=== PATIENT | female | born 1975 | race Two or more races ===

== ENCOUNTER 2018-07-26 16:56 | Inpatient (IN) | payer MEDICAID ==
[~2018-07-26] VITALS: Ht 152.4 cm; Wt 58.1 kg
[2018-07-26] MEDS ORDERED: METF850T13 PO (23:08)
[2018-07-26] MEDS ORDERED: FENO200 PO (23:14)
[2018-07-26] MEDS ORDERED: OMEP20CA16 PO (23:14)
[2018-07-26] MEDS ORDERED: ATEN50TA PO (23:14)
[2018-07-26] MEDS ORDERED: [UNRECOGNIZED DRUG - OTHER] (23:14)
[2018-07-26] MEDS ORDERED: GLICLAZIDE PO (23:16)
[2018-07-26] MEDS ORDERED: MULT-853 PO (23:16)
[2018-07-27] VITALS (23 sets, daily range): BP systolic 109–162; BP diastolic 56–90; PULSE 53–90; RESP 9–21; Ht 152.4 cm; Wt 58.1 kg
[2018-07-27] MEDS ORDERED: ACETAMINOPHEN 650MG/20.3ML CUP PO PRN
--- NOTE | 2018-07-27 00:26 | ERD ---
ER Documentation Chief Complaint Chief Complaint new R facial droop: LWKT 3days ago. hx stroke x4 w residual weak, blindness HPI Is a 43-year-old female had a new right-sided facial for the past 3 days. Patient had a stroke 4 weeks ago. Family is very poor with history and cannot tell me which hospital they had gone to for this stroke or what kind of treatment was offered to them. Apparently this droop started 3 days ago but t hey were waiting for possible Medi-[employer] approval from the sounds of it. ROS All systems reviewed and are negative except as per history of present illness. Medications Home Meds Reported Medications Multivits-Min/Iron/FA/Lutein (Centrum Silver Women Tablet) 1 Each Tablet, 1 EACH PO DAILY, TAB 07/26/18 [Gliclazide ] No Conflict Check, 40 MG PO BID 07/26/18 Fenofibrate* (Fenofibrate*) 200 Mg Cap, 200 MG PO DAILY, CAP 07/26/18 [Clinidipine ] No Conflict Check, 10 MG DAILY 07/26/18 Omeprazole* (Omeprazole*) 20 Mg Capsule.dr, 20 MG PO DAILY, #30 CAP 07/26/18 Atenolol* (Atenolol*) 50 Mg Tablet, 50 MG PO DAILY, #30 TAB 07/26/18 Metformin Hcl* (Metformin Hcl*) 850 Mg Tablet, 850 MG PO WITH BREAKFAST DINNE, #30 TAB 07/26/18 Allergies Allergies: Coded Allergies: No Known Allergy (Unverified , 07/26/18) PMhx/Soc History of Surgery: Yes (2 ) Anesthesia Reaction: No Hx Neurological Disorder: Yes (CVA 4 times as per daughters verbatim) Hx Respiratory Disorders: No Hx Cardiac Disorders: Yes (HTN, Hyperlipidemia) Hx Psychiatric Problems: No Hx Miscellaneous Medical Probl: Yes (DM) Hx Alcohol Use: No Hx Substance Use: No Hx Tobacco Use: No Smoking Status: Never smoker Physical Exam Vitals Vital Signs Date Temp Pulse Resp B/P (MAP) Pulse Ox O2 O2 Flow FiO2 Time Delivery Rate 07/26/18 98.1 78 16 139/70 100 Room Air 23:53 (93) 07/26/18 99.2 104 22 132/95 100 17:17 (107) Physical Exam Const: No acute distress Head: Atraumatic Eyes: Normal Conjunctiva ENT: Normal External Ears, Nose and Mouth. Neck: Full range of motion. No meningismus. Resp: Clear to auscultation bilaterally Cardio: Regular rate and rhythm, no murmurs Abd: Soft, non tender, non distended. Normal bowel sounds Skin: No petechiae or rashes Back: No midline or flank tenderness Ext: No cyanosis, or edema Neur: Awake and alert Psych: Normal Mood and Affect Result Diagram: 07/26/18215007/26/182150 Results 24 hrs Laboratory Tests Test 07/26/18 19:30 07/26/18 21:51 07/26/18 22:20 07/26/18 22:26 Hemoglobin A1c 6.3 % White Blood 11.7 10^3/ul Count Red Blood Count 4.37 10^6/ul Hemoglobin 11.8 g/dl Hematocrit 36.9 % Mean 84.4 fl Corpuscular Volume Mean 27.0 pg Corpuscular Hemoglobin Mean 32.0 g/dl Corpuscular Hemoglobin Conc ent Red Cell 13.0 % Distribution Width Platelet Count 242 10^3/UL Mean Platelet 11.9 fl Volume Immature 0.400 % Granulocytes % Neutrophils % 42.7 % Lymphocytes % 48.6 % Monocytes % 6.7 % Eosinophils % 1.3 % Basophils % 0.3 % Nucleated Red 0.0 /100WBC Blood Cells % Immature 0.050 10^3/ul Granulocytes # Neutrophils # 5.0 10^3/ul Lymphocytes # 5.7 10^3/ul Monocytes # 0.8 10^3/ul Eosinophils # 0.2 10^3/ul Basophils # 0.0 10^3/ul Nucleated Red 0.0 10^3/ul Blood Cells # Prothrombin 12.4 Sec Time Prothrombin 1.0 Time Ratio INR 0.92 International Normalized Rati o Activated 26.4 Sec Partial Thrombo plast Time Sodium Level 139 mmol/L Potassium Level 4.0 mmol/L Chloride Level 99 mmol/L Carbon Dioxide 27 mmol/L Level Anion Gap 13 Blood Urea 18 mg/dl Nitrogen Creatinine 1.04 mg/dl Est Glomerular 57 mL/min Filtrat Rate mL/min Glucose Level 81 mg/dl Calcium Level 9.5 mg/dl Total Bilirubin 0.2 mg/dl Direct 0.00 mg/dl Bilirubin Indirect 0.2 mg/dl Bilirubin Aspartate Amino 27 IU/L Transf (AST/SGO T) Alanine 24 IU/L Aminotransferas e (ALT/SGPT) Alkaline 62 IU/L Phosphatase Troponin I < 0.012 ng/ml Total Protein 7.2 g/dl Albumin 4.2 g/dl Globulin 3.00 g/dl Albumin/Globuli 1.40 n Ratio Triglycerides 145 mg/dl Level Cholesterol 127 mg/dl Level LDL 55 mg/dl Cholesterol, Calculated HDL Cholesterol 43 mg/dl Cholesterol/HDL 2.9 RATIO Ratio Urine Color YELLOW Urine Clarity CLEAR Urine pH 6.0 Urine Specific 1.010 [place] Urine Ketones NEGATIVE mg/dL Urine Nitrite NEGATIVE mg/dL Urine Bilirubin NEGATIVE mg/dL Urine NEGATIVE mg/dL Urobilinogen Urine Leukocyte 3+ Adrienne/ul Esterase Urine 1 /HPF Microscopic RBC Urine 55 /HPF Microscopic WBC Urine Bacteria FEW /HPF Urine NEGATIVE mg/dL Hemoglobin Urine Glucose NEGATIVE mg/dL Urine Total NEGATIVE mg/dl Protein Urine Opiates Negative Screen Urine Negative Barbiturates Urine Negative Amphetamines Screen Urine Negative Benzodiazepines Screen Urine Cocaine Negative Screen Urine Negative Cannabinoids Bedside Glucose 72 mg/dL Current Medications Medications Dose Sig/Solis Start Time Status Last (Trade) Ordered Route PRN Stop Time Admin Dose Reason Admin 650 mg Q6H PRN 07/27/18 Acetaminophen PO PAIN 00:00 (Tylenol LEVEL 1-3 OR Liquid) FEVER 40 mg DAILY@06 07/27/18 Pantoprazole IV 06:00 (Protonix Iv) Hydralazine 10 mg Q4H PRN 07/27/18 HCl IV ELEVATED 00:00 (Apresoline) BLOOD PRESSURE Ceftriaxone 50 ml @ Q24H IVPB 07/27/18 Sodium 100 mls/hr 00:00 1,000 ml @ [id number] IV 07/27/18 Dextrose/Sodi 75 mls/hr 00:00 um Chloride Procedures/MDM EKG: Rate/Rhythm: [Normal Sinus Rhythm] QRS, ST, T-waves: [No changes consistent w/ acute ischemia] Impression: [No evidence of ischemia or arrhythmia] Chest X-ray 1V Interpreted by me: Soft Tissue: No acute abnormalities Bones: No acute abnormalities Mediastinum/Cardiac Silhouette/Lungs: [No acute abnormalities] Medical decision makin-year-old female who has possible evolution of previous stroke versus new subacute stroke. CT seems to bear this out. I spoke to Dr. Christian of neurosurgery given the midline shift on the CT NEC feels that there is no neurosurgical intervention which I agree with at this time. Patient is nonfocal neurologically. Will be admitted to hospitalist for further evaluation and management neurology consultation. Telemetry neurology was consulted as well, given the past 3 days plus of the new symptoms, no acute intervention was indicated Critical Care: Time: 45 minutes, independent of any separately billable procedural time Treatments/Evaluations: Close monitoring and treatment of unstable vital signs, cardiorespiratory, and neurologic status, while maintaining tight balance of fluid, respiratory, and cardiac interventions. Departure Diagnosis: Primary Impression: CVA (cerebral vascular accident) CVA mechanism: unspecified Qualified Codes: I63.9 - Cerebral infarction, unspecified Condition: Serious CINDY LEHMAN Jul 27, 2018 00:26
[2018-07-27] MEDS: CEFTRIAXONE 1 GM/50 ML (PMX) 50 ML IVPB SCH ×2 (00:31→23:07)
[2018-07-27] MEDS: DEXTROSE 5%-0.45% NACL 1,000 ML IV SCH ×2 (01:03→12:39)
--- NOTE | 2018-07-27 01:14 | HP ---
Date/Time of Note Date/Time of Note DATE: 07/27/18 TIME: 01:13 Assessment/Plan VTE Prophylaxis SCD applied (from Nsg): Yes Pharmacological prophylaxis: NA/contraindicated Pharm contraindication: low risk/ambulating Lines/Catheters IV Catheter Type (from Nrsg): Saline Lock Assessment/Plan Hospital Course This is a 43-year-old female being admitted to the ICU floor for: #1 acute versus subacute nonhemorrhagic CVA: CT of the brain shows what appears to be evolving stroke with a 3 mm midline shift. There also appears to be signs of old infarcts as well. Patient does have a left-sided facial droop. There is no signs of herniation. As the symptoms have occurred greater than 48 hours ago at the current time there is no indication for permissive hypertension. Neurology and neurosurgery were consulted and there was no indication for any emergent neurosurgical or thrombolytic intervention at the current time. Patient will be monitored closely in the ICU as per the recommendations of neurosurgery. Will obtain an MRI with and without contrast of the brain in the a.m., and MRA of the head and MRI of the neck with contrast. Carotid Doppler ultrasound. Echocardiogram with bubble study. PT OT speech evaluation. Neurovascular checks every 4 hours. Fall precautions. Aspirin 81 mg daily. High-dose statin daily. Will consult neurology , Dr. Ahuja of neurosurgery is already on the case. Glucose checks every 4 hours given her diabetes. We will need to optimize glucose, blood pressure control. #2 history of multiple CVAs: CT scan does show signs of old infarcts. We will need to optimize blood sugar control, blood pressure control and lipids. Further management as per #1. #3 diabetes mellitus: We will check hemoglobin A1c, insulin sliding scale #4 urinary tract infection: Ceftriaxone 1 g every 24 hours, await urine culture results #5 hyperlipidemia: We will start high-dose statin, LFTs are within normal values. #6 DVT GI prophylaxis: SCDs, Protonix Further treatment strategy will be implemented as per the clinical course Greater than 45 minutes of critical care time was spent on the care management this patient. Result Diagram: 07/26/18215007/26/181 Results 24hrs Laboratory Tests Test 07/26/18 19:30 07/26/18 21:51 07/26/18 22:20 07/26/18 22:26 Hemoglobin A1c 6.3 H White Blood 11.7 H Count Red Blood Count 4.37 Hemoglobin 11.8 L Hematocrit 36.9 L Mean Corpuscular 84.4 Volume Mean Corpuscular 27.0 L Hemoglobin Mean Corpuscular 32.0 Hemoglobin Na nt Red Cell 13.0 Distribution Width Platelet Count 242 Mean Platelet 11.9 H Volume Immature 0.400 Granulocytes % Neutrophils % 42.7 Lymphocytes % 48.6 Monocytes % 6.7 Eosinophils % 1.3 Basophils % 0.3 Nucleated Red 0.0 Blood Cells % Immature 0.050 H Granulocytes # Neutrophils # 5.0 Lymphocytes # 5.7 H Monocytes # 0.8 Eosinophils # 0.2 Basophils # 0.0 Nucleated Red 0.0 Blood Cells # Prothrombin Time 12.4 Prothrombin Time 1.0 Ratio INR 0.92 International Normalized Ratio Activated 26.4 Partial Thrombop last Time Sodium Level 139 Potassium Level 4.0 Chloride Level 99 Carbon Dioxide 27 Level Anion Gap 13 Blood Urea 18 Nitrogen Creatinine 1.04 H Est Glomerular 57 L Filtrat Rate mL/min Glucose Level 81 Calcium Level 9.5 Total Bilirubin 0.2 Direct Bilirubin 0.00 Indirect 0.2 Bilirubin Aspartate Amino 27 Transf (AST/SGOT ) Alanine 24 Aminotransferase (ALT/SGPT) Alkaline 62 Phosphatase Troponin I < 0.012 Total Protein 7.2 Albumin 4.2 Globulin 3.00 Albumin/Globulin 1.40 Ratio Triglycerides 145 Level Cholesterol 127 Level LDL Cholesterol, 55 Calculated HDL Cholesterol 43 Cholesterol/HDL 2.9 Ratio Urine Color YELLOW Urine Clarity CLEAR Urine pH 6.0 Urine Specific 1.010 [place] Urine Ketones NEGATIVE Urine Nitrite NEGATIVE Urine Bilirubin NEGATIVE Urine NEGATIVE Urobilinogen Urine Leukocyte 3+ H Esterase Urine 1 Microscopic RBC Urine 55 H Microscopic WBC Urine Bacteria FEW A Urine Hemoglobin NEGATIVE Urine Glucose NEGATIVE Urine Total NEGATIVE Protein Urine Opiates Negative Screen Urine Negative Barbiturates Urine Negative Amphetamines Screen Urine Negative Benzodiazepines Screen Urine Cocaine Negative Screen Urine Negative Cannabinoids Bedside Glucose 72 HPI/ROS Admit Date/Time Admit Date/Time Hx of Present Illness Chief complaint: left sided facial droop, weakness times 3 days This is a 43-year-old female with a past medical history of CVA and diabetes who comes in today with symptoms of left facial droop and weakness. She is accompanied by her daughter. Most of the history was obtained from the daughter as the patient was not able to provide a complete history given her clinical condition. According to the daughter the patient was noted to to have decreased activity over the last 3 days and was mostly just sitting around at home. The daughter also noted that she had a right-sided facial droop. When the patient was asked further when her symptoms started she did report that one week ago she started experiencing a headache. Patient has a history of 4 strokes in the past with some of them resulting in limb weakness which eventually recovered after rehab. At the current time the mother is able to perform her daily activities such as cooking. She is able to walk on her own. The daughter does state that she has some issues with her vision mainly color colorblindness which the daughter thinks that could be secondary to her previous strokes but she is unsure of this. The family and patient recently emigrated to [place] within the last few months. Allergies: NKDA Medications: See NINA HAYNES Const: As per HPI Eyes : No pain discharge or redness or change in visual acuity ENT: No pain, sore throat, congestion, congestion, dysphagia or discharge Respiratory: No shortness of breath, cough, sputum, wheezing, or pleuritic pain Cardiovascular: No chest pain, palpitation, PND, or edema GI : no change in appetite, abdominal pain, nausea, vomiting, diarrhea, constipation, or change in the color his stool Genitourinary: No dysuria, hematuria, flank pain , discharge or CVA tenderness Musculoskeletal: No joint pain, back pain, neck pain, restricted range of motion in neck or joints Skin: No rash, bruising or hives Neuro: As per HPI Endocrine: No polyuria, polydipsia, temperature intolerance Psych: No hallucination, depression, anxiety or suicidal ideation PMH/Family/Social Past Medical History Diabetes mellitus, CVA x4, hypertension, hyperlipidemia Medications Current Medications Acetaminophen (Tylenol Liquid) 650 mg Q6H PRN PO PAIN LEVEL 1-3 OR FEVER; Start 07/27/18 at 00:00 Pantoprazole (Protonix Iv) 40 mg DAILY@06 IV ; Start 07/27/18 at 06:00 Hydralazine HCl (Apresoline) 10 mg Q4H PRN IV ELEVATED BLOOD PRESSURE; Start 07/27/18 at 00:00 Ceftriaxone Sodium 50 ml @ 100 mls/hr Q24H IVPB Last administered on 07/27/18at 00:31; Admin Dose 100 MLS/HR; Start 07/27/18 at 00:00 Dextrose/Sodium Chloride 1,000 ml @ 75 mls/hr [id number] IV Last administered on 07/27/18at 01:03; Admin Dose 75 MLS/HR; Start 07/27/18 at 00:00 Coded Allergies: No Known Allergy (Unverified , 07/26/18) Past Surgical History x2 Family History Significant Family History: no pertinent family hx Social History Alcohol Use: none Smoking Status: Never smoker Drug Use: none Exam/Review of Systems Vital Signs Vitals Vital Signs Date Temp Pulse Resp B/P (MAP) Pulse Ox O2 O2 Flow FiO2 Time Delivery Rate 07/27/18 62 17 136/76 100 Room Air 00:41 (96) 07/26/18 98.1 23:53 Exam Exam General: Patient is currently lying in bed, she is somnolent but easily arousable and follows commands and converses.She reports seeing shadows, but is otherwise blind secondary to previous strokes HEENT: left-sided facial droop Neck: Supple with full range of motion. No rigidity or meningismus Chest: Nontender Lungs: Clear to auscultation bilaterally no crackles rales or wheezing Heart: Normal S1-S2, Regular rhythm and rate. Abdomen: Soft , nontender, nondistended , bowel sounds are present. No guarding no rebound tenderness , No masses or organomegaly. No costovertebral temporal angle mass Extremities: Normal to inspection, no edema no cyanosis Neurologic: Alert and oriented x3, speech normal, left-sided facial droop, strength 5 out of 5 in bilateral upper and lower extremities. Gait not assessed however daughter does state that she is walking at home without any issue. Additional Comments EKG: Normal sinus rhythm at approximately PROCEDURE: CT Brain without contrast. CLINICAL INDICATION: Stroke TECHNIQUE: A CT of the brain was performed on a multidetector CT scanner ut ilizing axial imaging from the skull base through the vertex without IV contrast. Multiplanar reformatted images were made. Images were reviewed on a PACS workstation. The CTDIvol is 40 mGy and the DLP is 634 mGycm. DICOM images are available. One or more of the following dose reduction techniques were utilized: 1.) Automated exposure control 2.) Adjustment of the mA +/- kV according to patient's size 3.) Use of iterative reconstruction technique. COMPARISON: None FINDINGS: Noted is mild to moderate diffuse cerebral volume loss with sulcal and ventricular dilatation. No discrete extra-axial fluid collection or masses seen. Ventricles are in the midline. There is mass effect and deformity of the frontal horn of the right lateral ventricle secondary to mass effect from edema or iginating from an acute to subacute non-hemorrhagic infarct in the distribution of the right anterior cerebral artery. There is effacement of the overlying sulci with approximate 3 mm right to left midline shift at the level of the third ventricle. There is no evidence of herniation. Noted are chronic infarcts of the right and left occipital lobe and posterior right parietal lobe with encephalomalacia. There is a chronic infarct extending from the left basal ganglia into the frontal lobato radiata. Small chronic ischemic changes are seen in the right basal ganglia. There is periventricular white matter disease in both cerebral hemispheres. No intracranial hemorrhage is visualized. There is normal aeration of the visualized paranasal sinuses per IMPRESSION: Acute to subacute non-hemorrhagic infarct distribution right anterior cerebral artery with mass effect and deformity frontal horn right lateral ventricle and 3 mm right to left midline shift. No evidence of herniation. Chronic infarcts right and left occipital lobe and posterior right parietal lobe with encephalomalacia. Chronic ischemic changes left basal ganglia and left frontal periventricular white matter. Bilateral white matter disease compatible with chronic small vessel ischemia. No intracranial hemorrhage. .Dm Parrish MD, Date Time Electronically viewed and signed by .Dm Parrish MD, MD on 07/26/2018 22:12 .A/ CC: CINDY LEHMAN [phone] PROCEDURE: Portable chest x-ray. CLINICAL INDICATION: 43 years of age, female. Possible stroke TECHNIQUE: Portable AP view of the chest. COMPARISON: None available. FINDINGS: Medical devices: None. Mediastinum: Cardiomediastinal contours are normal. Lungs: Lungs are clear. Pleura: Negative for pleural effusion or pneumothorax. Bones: No acute bony abnormality. Additional comment: None. IMPRESSION: Negative for evidence of an acute chest process. RPTAT: HCTS Bria Aguilar, Physician Date Time Electronically viewed and signed by Bria Aguilar, Physician on 07/26/2018 22:05 CS/ CC: CINDY LEHMAN [id number] ARIANNA DIALLO Jul 27, 2018 01:14
[2018-07-27] MEDS: hydrALAzine 20 MG INJ IV PRN ×2 (01:29→15:35)
[2018-07-27] MEDS ORDERED: ACCU-CHEK XX SCH (02:00)
[2018-07-27] MEDS ORDERED: GLUCOSE GEL 15 GRAM TUBE PO PRN ×2 (02:00)
[2018-07-27] MEDS ORDERED: GLUCOSE GEL 15 GRAM TUBE BUCCAL PRN (02:00)
[2018-07-27] MEDS ORDERED: DEXTROSE 50% 50 ML SYRINGE IV PRN ×2 (02:00)
[2018-07-27] MEDS ORDERED: GLUCAGON 1 MG INJ IM PRN (02:00)
--- NOTE | 2018-07-27 02:56 | CONS ---
Assessment/Plan Assessment/Plan Assessment/Plan 43 F LKW 3 days ago with facial droop. NCHCT showing suacute infarct in right LUIS territory with mass effect and 3 mm right to left midline shift and no evidence of herniation. NS consulted by local ED for edema/midline shift and requested emergent Neuro consultation to determine if any acute intervention for this stroke. LKW is 3 days ago as reported and the edema from this stroke is likely nearing peak. There is no medical (tPA) or surgical (thrombectomy) acute intervention for this acute stroke indicated. Further care per local Neurology team. Result Diagram: 07/26/18215007/26/182150 Results 24hrs Laboratory Tests Test 07/26/18 19:30 07/26/18 21:51 07/26/18 22:20 07/26/18 22:26 Hemoglobin A1c 6.3 H White Blood 11.7 H Count Red Blood Count 4.37 Hemoglobin 11.8 L Hematocrit 36.9 L Mean Corpuscular 84.4 Volume Mean Corpuscular 27.0 L Hemoglobin Mean Corpuscular 32.0 Hemoglobin Na nt Red Cell 13.0 Distribution Width Platelet Count 242 Mean Platelet 11.9 H Volume Immature 0.400 Granulocytes % Neutrophils % 42.7 Lymphocytes % 48.6 Monocytes % 6.7 Eosinophils % 1.3 Basophils % 0.3 Nucleated Red 0.0 Blood Cells % Immature 0.050 H Granulocytes # Neutrophils # 5.0 Lymphocytes # 5.7 H Monocytes # 0.8 Eosinophils # 0.2 Basophils # 0.0 Nucleated Red 0.0 Blood Cells # Prothrombin Time 12.4 Prothrombin Time 1.0 Ratio INR 0.92 International Normalized Ratio Activated 26.4 Partial Thrombop last Time Sodium Level 139 Potassium Level 4.0 Chloride Level 99 Carbon Dioxide 27 Level Anion Gap 13 Blood Urea 18 Nitrogen Creatinine 1.04 H Est Glomerular 57 L Filtrat Rate mL/min Glucose Level 81 Calcium Level 9.5 Total Bilirubin 0.2 Direct Bilirubin 0.00 Indirect 0.2 Bilirubin Aspartate Amino 27 Transf (AST/SGOT ) Alanine 24 Aminotransferase (ALT/SGPT) Alkaline 62 Phosphatase Troponin I < 0.012 Total Protein 7.2 Albumin 4.2 Globulin 3.00 Albumin/Globulin 1.40 Ratio Triglycerides 145 Level Cholesterol 127 Level LDL Cholesterol, 55 Calculated HDL Cholesterol 43 Cholesterol/HDL 2.9 Ratio Urine Color YELLOW Urine Clarity CLEAR Urine pH 6.0 Urine Specific 1.010 [place] Urine Ketones NEGATIVE Urine Nitrite NEGATIVE Urine Bilirubin NEGATIVE Urine NEGATIVE Urobilinogen Urine Leukocyte 3+ H Esterase Urine 1 Microscopic RBC Urine 55 H Microscopic WBC Urine Bacteria FEW A Urine Hemoglobin NEGATIVE Urine Glucose NEGATIVE Urine Total NEGATIVE Protein Urine Opiates Negative Screen Urine Negative Barbiturates Urine Negative Amphetamines Screen Urine Negative Benzodiazepines Screen Urine Cocaine Negative Screen Urine Negative Cannabinoids Bedside Glucose 72 Test 07/27/18 01:34 Bedside Glucose 78 Consultation Date/Type/Reason Admit Date/Time Type of Consult Neurology Date/Time of Note DATE: 07/27/18 TIME: 02:55 Exam/Review of Systems Vital Signs Vitals Vital Signs Date Temp Pulse Resp B/P (MAP) Pulse Ox O2 O2 Flow FiO2 Time Delivery Rate 07/27/18 67 13 109/56 100 Room Air 02:00 (73) 07/27/18 98.4 01:45 Intake and Output 07/26/18 07/26/18 07/27/18 1515:00 23:00 07:00 IntakeIntake Total 0 ml OutputOutput Total 0 ml BalanceBalance 0 ml Medications Medications Current Medications Acetaminophen (Tylenol Liquid) 650 mg Q6H PRN PO PAIN LEVEL 1-3 OR FEVER; Start 07/27/18 at 00:00 Pantoprazole (Protonix Iv) 40 mg DAILY@06 IV ; Start 07/27/18 at 06:00 Hydralazine HCl (Apresoline) 10 mg Q4H PRN IV ELEVATED BLOOD PRESSURE Last administered on 07/27/18at 01:29; Admin Dose 10 MG; Start 07/27/18 at 00:00 Ceftriaxone Sodium 50 ml @ 100 mls/hr Q24H IVPB Last administered on 07/27/18at 00:31; Admin Dose 100 MLS/HR; Start 07/27/18 at 00:00 Dextrose/Sodium Chloride 1,000 ml @ 75 mls/hr [id number] IV Last administered on 07/27/18at 01:03; Admin Dose 75 MLS/HR; Start 07/27/18 at 00:00 Insulin Aspart (Novolog Insulin Pen) NOVOLOG *MILD* ALGORI... Q4 SC ; Start 07/27/18 at 05:00 Miscellaneous Information 1 ea NOTE XX ; Start 07/27/18 at 02:00 Glucose (Glutose) 15 gm Q15M PRN PO DECREASED GLUCOSE; Start 07/27/18 at 02:00 Glucose (Glutose) 22.5 gm Q15M PRN PO DECREASED GLUCOSE; Start 07/27/18 at 02:00 Dextrose (D50w Syringe) 25 ml Q15M PRN IV DECREASED GLUCOSE; Start 07/27/18 at 02:00 Dextrose (D50w Syringe) 50 ml Q15M PRN IV DECREASED GLUCOSE; Start 07/27/18 at 02:00 Glucagon (Glucagen) 1 mg Q15M PRN IM DECREASED GLUCOSE; Start 07/27/18 at 02:00 Glucose (Glutose) 15 gm Q15M PRN BUCCAL DECREASED GLUCOSE; Start 07/27/18 at 02:00 Past Medical History Medications Current Medications Acetaminophen (Tylenol Liquid) 650 mg Q6H PRN PO PAIN LEVEL 1-3 OR FEVER; Start 07/27/18 at 00:00 Pantoprazole (Protonix Iv) 40 mg DAILY@06 IV ; Start 07/27/18 at 06:00 Hydralazine HCl (Apresoline) 10 mg Q4H PRN IV ELEVATED BLOOD PRESSURE Last administered on 07/27/18at 01:29; Admin Dose 10 MG; Start 07/27/18 at 00:00 Ceftriaxone Sodium 50 ml @ 100 mls/hr Q24H IVPB Last administered on 07/27/18at 00:31; Admin Dose 100 MLS/HR; Start 07/27/18 at 00:00 Dextrose/Sodium Chloride 1,000 ml @ 75 mls/hr [id number] IV Last administered on 07/27/18at 01:03; Admin Dose 75 MLS/HR; Start 07/27/18 at 00:00 Insulin Aspart (Novolog Insulin Pen) NOVOLOG *MILD* ALGORI... Q4 SC ; Start 07/27/18 at 05:00 Miscellaneous Information 1 ea NOTE XX ; Start 07/27/18 at 02:00 Glucose (Glutose) 15 gm Q15M PRN PO DECREASED GLUCOSE; Start 07/27/18 at 02:00 Glucose (Glutose) 22.5 gm Q15M PRN PO DECREASED GLUCOSE; Start 07/27/18 at 02:00 Dextrose (D50w Syringe) 25 ml Q15M PRN IV DECREASED GLUCOSE; Start 07/27/18 at 02:00 Dextrose (D50w Syringe) 50 ml Q15M PRN IV DECREASED GLUCOSE; Start 07/27/18 at 02:00 Glucagon (Glucagen) 1 mg Q15M PRN IM DECREASED GLUCOSE; Start 07/27/18 at 02:00 Glucose (Glutose) 15 gm Q15M PRN BUCCAL DECREASED GLUCOSE; Start 07/27/18 at 02:00 Allergies: Coded Allergies: No Known Allergy (Unverified , 07/26/18) Social History Smoking Status: Never smoker HENRY REDMAN MD Jul 27, 2018 02:56
[2018-07-27] MEDS: INSULIN ASPART [NOVOLOG] 3 ML PEN SC SCH ×7 (05:00→20:41)
[2018-07-27] MEDS: ATORVASTATIN 80 MG TAB PO SCH ×2 (05:44→20:39)
[2018-07-27] MEDS: PANTOPRAZOLE 40 MG INJ IV SCH (05:44)
[2018-07-27] MEDS: ASPIRIN 81 MG TAB PO SCH ×2 (05:44→08:31)
[2018-07-27] MEDS ORDERED: MAGNESIUM SULFATE 2 GM/50 ML 50 ML IVPB ONE (07:30)
--- NOTE | 2018-07-27 08:39 | PN ---
Date/Time of Note Date/Time of Note DATE: 07/27/18 TIME: 08:39 Assessment/Plan VTE Prophylaxis Risk score (from Ns)>0 risk: 2 SCD applied (from Ns): Yes Pharmacological prophylaxis: NA/contraindicated Pharm contraindication: bleeding Lines/Catheters IV Catheter Type (from Nrsg): Peripheral IV Urinary Cath still in place: Yes Reason Cath still needed: terminal illness/intractable pain Assessment/Plan Assessment/Plan 1. Acute vs subacute nonhemorrhagic stroke in R LUIS - Neurology on board and appreciate recommendations - CT scan results noted and awaiting MRI/MRA - ECHO with bubble study ordered to assess given has had 4 previous strokes in the past - PT/OT/ST on board - aspirin and statin 2. Acute 3mm midline shift - seen on CT - Neurosurgical consultation appreciated and no need for emergent intervention at this time 3. Diabetes Mellitus - A1c noted - ISS and accuchecks 4. 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 UTI - UA noted and will await cultures 6. HLD - on Lipitor - lipid panel results noted 7. Disposition - Continue close monitoring in ICU per Neurosurgical recommendations >40 minutes of critical care time spent with patient and family at bedside. Result Diagram: 07/27/18 0439 07/27/18 0439 Results 24hrs Laboratory Tests Test 07/26/18 19:30 07/26/18 21:51 07/26/18 22:20 07/26/18 22:26 Hemoglobin A1c 6.3 H White Blood 11.7 H Count Red Blood Count 4.37 Hemoglobin 11.8 L Hematocrit 36.9 L Mean Corpuscular 84.4 Volume Mean Corpuscular 27.0 L Hemoglobin Mean Corpuscular 32.0 Hemoglobin Na nt Red Cell 13.0 Distribution Width Platelet Count 242 Mean Platelet 11.9 H Volume Immature 0.400 Granulocytes % Neutrophils % 42.7 Lymphocytes % 48.6 Monocytes % 6.7 Eosinophils % 1.3 Basophils % 0.3 Nucleated Red 0.0 Blood Cells % Immature 0.050 H Granulocytes # Neutrophils # 5.0 Lymphocytes # 5.7 H Monocytes # 0.8 Eosinophils # 0.2 Basophils # 0.0 Nucleated Red 0.0 Blood Cells # Prothrombin Time 12.4 Prothrombin Time 1.0 Ratio INR 0.92 International Normalized Ratio Activated 26.4 Partial Thrombop last Time Sodium Level 139 Potassium Level 4.0 Chloride Level 99 Carbon Dioxide 27 Level Anion Gap 13 Blood Urea 18 Nitrogen Creatinine 1.04 H Est Glomerular 57 L Filtrat Rate mL/min Glucose Level 81 Calcium Level 9.5 Total Bilirubin 0.2 Direct Bilirubin 0.00 Indirect 0.2 Bilirubin Aspartate Amino 27 Transf (AST/SGOT ) Alanine 24 Aminotransferase (ALT/SGPT) Alkaline 62 Phosphatase Troponin I < 0.012 Total Protein 7.2 Albumin 4.2 Globulin 3.00 Albumin/Globulin 1.40 Ratio Triglycerides 145 Level Cholesterol 127 Level LDL Cholesterol, 55 Calculated HDL Cholesterol 43 Cholesterol/HDL 2.9 Ratio Urine Color YELLOW Urine Clarity CLEAR Urine pH 6.0 Urine Specific 1.010 [place] Urine Ketones NEGATIVE Urine Nitrite NEGATIVE Urine Bilirubin NEGATIVE Urine NEGATIVE Urobilinogen Urine Leukocyte 3+ H Esterase Urine 1 Microscopic RBC Urine 55 H Microscopic WBC Urine Bacteria FEW A Urine Hemoglobin NEGATIVE Urine Glucose NEGATIVE Urine Total NEGATIVE Protein Urine Opiates Negative Screen Urine Negative Barbiturates Urine Negative Amphetamines Screen Urine Negative Benzodiazepines Screen Urine Cocaine Negative Screen Urine Negative Cannabinoids Bedside Glucose 72 Test 07/27/18 01:34 07/27/18 04:39 07/27/18 05:43 07/27/18 08:31 Bedside Glucose 78 130 124 White Blood 9.3 # Count Red Blood Count 4.30 Hemoglobin 11.4 L Hematocrit 35.7 L Mean Corpuscular 83.0 Volume Mean Corpuscular 26.5 L Hemoglobin Mean Corpuscular 31.9 L Hemoglobin Na nt Red Cell 13.0 Distribution Width Platelet Count 246 Mean Platelet 12.2 H Volume Immature 0.300 Granulocytes % Neutrophils % 39.2 Lymphocytes % 50.6 Monocytes % 8.1 Eosinophils % 1.5 Basophils % 0.3 Nucleated Red 0.0 Blood Cells % Immature 0.030 Granulocytes # Neutrophils # 3.6 Lymphocytes # 4.7 H Monocytes # 0.8 Eosinophils # 0.1 Basophils # 0.0 Nucleated Red 0.0 Blood Cells # Sodium Level 139 Potassium Level 3.8 Chloride Level 103 Carbon Dioxide 26 Level Anion Gap 10 Blood Urea 15 Nitrogen Creatinine 1.04 H Est Glomerular 57 L Filtrat Rate mL/min Glucose Level 110 Hemoglobin A1c 6.2 H Calcium Level 9.0 Magnesium Level 1.6 L Total Bilirubin 0.2 Direct Bilirubin 0.00 Indirect 0.2 Bilirubin Aspartate Amino 26 Transf (AST/SGOT ) Alanine 21 Aminotransferase (ALT/SGPT) Alkaline 61 Phosphatase Total Protein 6.9 Albumin 3.8 Globulin 3.10 Albumin/Globulin 1.22 Ratio Triglycerides 119 Level Cholesterol 118 Level LDL Cholesterol, 55 Calculated HDL Cholesterol 39 Cholesterol/HDL 3.0 Ratio Thyroid 4.320 Stimulating Hormone (TSH) Subjective 24 Hr Interval Summary Free Text/Dictation Patient able to follow commands and able to state name. Per family, she has a delay in her response but no other appreciate deficits. [place] in [place] and currently without health insurance. This is her 5th stroke and per daughter, pt brothers all had strokes as well. Exam/Review of Systems Vital Signs Vitals Vital Signs Date Temp Pulse Resp B/P (MAP) Pulse Ox O2 O2 Flow FiO2 Time Delivery Rate 07/27/18 61 9 134/63 100 Room Air 07:00 (86) 07/27/18 98.5 04:00 Intake and Output 07/26/18 07/26/18 07/27/18 1515:00 23:00 07:00 IntakeIntake Total 450 ml OutputOutput Total 900 ml BalanceBalance -450 ml Exam General: somnolent but easily arousable. no acute distress. smiles after questions and has delayed response Neck: Supple Chest: Nontender Lungs: Clear to auscultation bilaterally no crackles rales or wheezing Heart: Normal S1-S2, Regular rhythm and rate. no murmurs Abdomen: Soft , nontender, nondistended, bowel sounds are present. No guarding no rebound tenderness Extremities: Normal to inspection, no edema no cyanosis Neurologic: Delayed response but speech normal, right-sided facial droop, strength 4 out of 5 in bilateral upper and lower extremities Medications Medications Current Medications Acetaminophen (Tylenol Liquid) 650 mg Q6H PRN PO PAIN LEVEL 1-3 OR FEVER; Start 07/27/18 at 00:00 Pantoprazole (Protonix Iv) 40 mg DAILY@06 IV Last administered on 07/27/18at 05:44; Admin Dose 40 MG; Start 07/27/18 at 06:00 Hydralazine HCl (Apresoline) 10 mg Q4H PRN IV ELEVATED BLOOD PRESSURE Last administered on 07/27/18at 01:29; Admin Dose 10 MG; Start 07/27/18 at 00:00 Ceftriaxone Sodium 50 ml @ 100 mls/hr Q24H IVPB Last administered on 07/27/18at 00:31; Admin Dose 100 MLS/HR; Start 07/27/18 at 00:00 Dextrose/Sodium Chloride 1,000 ml @ 75 mls/hr [id number] IV Last administered on 07/27/18at 01:03; Admin Dose 75 MLS/HR; Start 07/27/18 at 00:00 Insulin Aspart (Novolog Insulin Pen) NOVOLOG *MILD* ALGORI... Q4 SC ; Start 07/27/18 at 05:00 Miscellaneous Information 1 ea NOTE XX ; Start 07/27/18 at 02:00 Glucose (Glutose) 15 gm Q15M PRN PO DECREASED GLUCOSE; Start 07/27/18 at 02:00 Glucose (Glutose) 22.5 gm Q15M PRN PO DECREASED GLUCOSE; Start 07/27/18 at 02:00 Dextrose (D50w Syringe) 25 ml Q15M PRN IV DECREASED GLUCOSE; Start 07/27/18 at 02:00 Dextrose (D50w Syringe) 50 ml Q15M PRN IV DECREASED GLUCOSE; Start 07/27/18 at 02:00 Glucagon (Glucagen) 1 mg Q15M PRN IM DECREASED GLUCOSE; Start 07/27/18 at 02:00 Glucose (Glutose) 15 gm Q15M PRN BUCCAL DECREASED GLUCOSE; Start 07/27/18 at 02:00 Aspirin (Aspirin) 81 mg DAILY PO Last administered on 07/27/18at 08:31; Admin Dose 81 MG; Start 07/27/18 at 05:00 Atorvastatin Calcium (Lipitor) 80 mg HS PO Last administered on 07/27/18at 05:44; Admin Dose 80 MG; Start 07/27/18 at 05:00 Magnesium Sulfate 50 ml @ 25 mls/hr ONCE ONCE IVPB Last administered on 07/27/18at 08:32; Admin Dose 25 MLS/HR; Start 07/27/18 at 07:30; Stop 07/27/18 at 09:29 ADITYA KUMAR MD Jul 27, 2018 08:39
--- NOTE | 2018-07-27 14:42 | CONS ---
Assessment/Plan Assessment/Plan Hospital Course A: 43 yo F with Hx of strokes who presents for evaluation of R face arm and leg weakness and dysarthria, concerning for recurrent stroke. CTH is notable for an acute R LUIS infarct and chronic BL occipital lobe and R parietal lobe infarcts. Carotid US is notable for moderate R ICA stenosis EKG was NSR P: Await MRI, MRA H/N, echo Add hypercoag panel, ESR, RPR Cont ASA/statin for secondary stroke prevention for now BP, glucose, and other medical management per primary Reorient as necessary Limit sedating medications where possible PT/OT/ST as tolerated Will follow clinically Result Diagram: 07/27/18 0439 07/27/18 0439 Results 24hrs Laboratory Tests Test 07/26/18 19:30 07/26/18 21:51 07/26/18 22:20 07/26/18 22:26 Hemoglobin A1c 6.3 H White Blood 11.7 H Count Red Blood Count 4.37 Hemoglobin 11.8 L Hematocrit 36.9 L Mean Corpuscular 84.4 Volume Mean Corpuscular 27.0 L Hemoglobin Mean Corpuscular 32.0 Hemoglobin Na nt Red Cell 13.0 Distribution Width Platelet Count 242 Mean Platelet 11.9 H Volume Immature 0.400 Granulocytes % Neutrophils % 42.7 Lymphocytes % 48.6 Monocytes % 6.7 Eosinophils % 1.3 Basophils % 0.3 Nucleated Red 0.0 Blood Cells % Immature 0.050 H Granulocytes # Neutrophils # 5.0 Lymphocytes # 5.7 H Monocytes # 0.8 Eosinophils # 0.2 Basophils # 0.0 Nucleated Red 0.0 Blood Cells # Prothrombin Time 12.4 Prothrombin Time 1.0 Ratio INR 0.92 International Normalized Ratio Activated 26.4 Partial Thrombop last Time Sodium Level 139 Potassium Level 4.0 Chloride Level 99 Carbon Dioxide 27 Level Anion Gap 13 Blood Urea 18 Nitrogen Creatinine 1.04 H Est Glomerular 57 L Filtrat Rate mL/min Glucose Level 81 Calcium Level 9.5 Total Bilirubin 0.2 Direct Bilirubin 0.00 Indirect 0.2 Bilirubin Aspartate Amino 27 Transf (AST/SGOT ) Alanine 24 Aminotransferase (ALT/SGPT) Alkaline 62 Phosphatase Troponin I < 0.012 Total Protein 7.2 Albumin 4.2 Globulin 3.00 Albumin/Globulin 1.40 Ratio Triglycerides 145 Level Cholesterol 127 Level LDL Cholesterol, 55 Calculated HDL Cholesterol 43 Cholesterol/HDL 2.9 Ratio Urine Color YELLOW Urine Clarity CLEAR Urine pH 6.0 Urine Specific 1.010 [place] Urine Ketones NEGATIVE Urine Nitrite NEGATIVE Urine Bilirubin NEGATIVE Urine NEGATIVE Urobilinogen Urine Leukocyte 3+ H Esterase Urine 1 Microscopic RBC Urine 55 H Microscopic WBC Urine Bacteria FEW A Urine Hemoglobin NEGATIVE Urine Glucose NEGATIVE Urine Total NEGATIVE Protein Urine Opiates Negative Screen Urine Negative Barbiturates Urine Negative Amphetamines Screen Urine Negative Benzodiazepines Screen Urine Cocaine Negative Screen Urine Negative Cannabinoids Bedside Glucose 72 Test 07/27/18 01:34 07/27/18 04:39 07/27/18 05:43 07/27/18 08:31 Bedside Glucose 78 130 124 White Blood 9.3 # Count Red Blood Count 4.30 Hemoglobin 11.4 L Hematocrit 35.7 L Mean Corpuscular 83.0 Volume Mean Corpuscular 26.5 L Hemoglobin Mean Corpuscular 31.9 L Hemoglobin Na nt Red Cell 13.0 Distribution Width Platelet Count 246 Mean Platelet 12.2 H Volume Immature 0.300 Granulocytes % Neutrophils % 39.2 Lymphocytes % 50.6 Monocytes % 8.1 Eosinophils % 1.5 Basophils % 0.3 Nucleated Red 0.0 Blood Cells % Immature 0.030 Granulocytes # Neutrophils # 3.6 Lymphocytes # 4.7 H Monocytes # 0.8 Eosinophils # 0.1 Basophils # 0.0 Nucleated Red 0.0 Blood Cells # Sodium Level 139 Potassium Level 3.8 Chloride Level 103 Carbon Dioxide 26 Level Anion Gap 10 Blood Urea 15 Nitrogen Creatinine 1.04 H Est Glomerular 57 L Filtrat Rate mL/min Glucose Level 110 Hemoglobin A1c 6.2 H Calcium Level 9.0 Magnesium Level 1.6 L Total Bilirubin 0.2 Direct Bilirubin 0.00 Indirect 0.2 Bilirubin Aspartate Amino 26 Transf (AST/SGOT ) Alanine 21 Aminotransferase (ALT/SGPT) Alkaline 61 Phosphatase Total Protein 6.9 Albumin 3.8 Globulin 3.10 Albumin/Globulin 1.22 Ratio Triglycerides 119 Level Cholesterol 118 Level LDL Cholesterol, 55 Calculated HDL Cholesterol 39 Cholesterol/HDL 3.0 Ratio Thyroid 4.320 Stimulating Hormone (TSH) Test 07/27/18 12:38 Bedside Glucose 136 Consultation Date/Type/Reason Admit Date/Time Type of Consult Neurology Reason for Consultation CVA Requesting Provider: ARIANNA DIALLO Date/Time of Note DATE: 07/27/18 TIME: 14:42 Hx of Present Illness 43 yo F with hx of CVA and other comorbidities who presented to the ED with c/o R facial droop and weakness History was obtained from daughter at bedside and chart review, as pt is a limited historian. 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 The physical therapist working with the pt endorsed gait instability with the pt favoring her L leg. The pt currently denies headache, weakness, numbness, lethargy, confusion, new visual changes. The daughter additionally stated that there is a family hx of strokes occurring at a young age. She stated that the pt's brother had a stroke in his 40s. It is elsewhere noted: Chief complaint: Right-sided facial droop, weakness times 3 days This is a 43-year-old female with a past medical history of CVA and diabetes who comes in today with symptoms of right-sided facial droop and weakness. She is accompanied by her daughter. Most of the history was obtained from the daughter as the patient was not able to provide a complete history given her clinical condition. According to the daughter the patient was noted to to have decreased activity over the last 3 days and was mostly just sitting around at home. The daughter also noted that she had a right-sided facial droop. When the patient was asked further when her symptoms started she did report that one week ago she started experiencing a headache. Patient has a history of 4 strokes in the past with some of them resulting in limb weakness which eventually recovered after rehab. At the current time the mother is able to perform her daily activities such as cooking. She is able to walk on her own. The daughter does state that she has some issues with her vision mainly color colorblindness which the daughter thinks that could be secondary to her previous strokes but she is unsure of this. The family and patient recently emigrated to [facility] within the last few months. negative unless noted otherwise in HPI Exam/Review of Systems Vital Signs Vitals Vital Signs Date Temp Pulse Resp B/P (MAP) Pulse Ox O2 O2 Flow FiO2 Time Delivery Rate 07/27/18 65 15 152/77 100 Room Air 14:00 (102) 07/27/18 97.0 12:00 Intake and Output 07/26/18 07/26/18 07/27/18 1515:00 23:00 07:00 IntakeIntake Total 450 ml OutputOutput Total 1005 ml BalanceBalance -555 ml Exam PE: Gen Appearance: No Apparent Distress HEENT: Normocephalic Cardiovascular: Regular rate Lungs: Clear bilaterally Abdomen: Soft Extremities: Dry NE: The patient was alert and oriented. Speech was dysarthric and dysphasic. Comprehension impaired. Difficult to redirect. Fund of knowledge was adequate. Pupils were equal and reactive to light. There was no afferent pupillary defect. Visual singh were normal. Funduscopic examination was limited. Extra-ocular movements were full. Ptosis was absent. There was no nystagmus. Facial sensation was normal. Face was asymmetric with diminished activation on the R. Hearing was intact. Palate movements were normal. Neck strength was normal. There was normal tongue bulk and speed of movement. Tone was normal. Muscle bulk was normal. I did not see fasciculations. Arms and legs were strong to confrontation though mildly weaker on the R. Vibration sensation was normal. Temperature and pinprick sensation was normal. Coordination was limited d/t pt's comprehension. Gait was unsteady. Arm and leg reflexes were 2+ and symmetric. Bui's sign was absent. Plantar responses were flexor. Medications Medications Current Medications Acetaminophen (Tylenol Liquid) 650 mg Q6H PRN PO PAIN LEVEL 1-3 OR FEVER; Start 07/27/18 at 00:00 Pantoprazole (Protonix Iv) 40 mg DAILY@06 IV Last administered on 07/27/18at 05:44; Admin Dose 40 MG; Start 07/27/18 at 06:00 Hydralazine HCl (Apresoline) 10 mg Q4H PRN IV ELEVATED BLOOD PRESSURE Last administered on 07/27/18at 01:29; Admin Dose 10 MG; Start 07/27/18 at 00:00 Ceftriaxone Sodium 50 ml @ 100 mls/hr Q24H IVPB Last administered on 07/27/18at 00:31; Admin Dose 100 MLS/HR; Start 07/27/18 at 00:00 Dextrose/Sodium Chloride 1,000 ml @ 75 mls/hr [id number] IV Last administered on 07/27/18at 12:39; Admin Dose 75 MLS/HR; Start 07/27/18 at 00:00 Insulin Aspart (Novolog Insulin Pen) NOVOLOG *MILD* ALGORI... Q4 SC ; Start 07/27/18 at 05:00 Miscellaneous Information 1 ea NOTE XX ; Start 07/27/18 at 02:00 Glucose (Glutose) 15 gm Q15M PRN PO DECREASED GLUCOSE; Start 07/27/18 at 02:00 Glucose (Glutose) 22.5 gm Q15M PRN PO DECREASED GLUCOSE; Start 07/27/18 at 02:00 Dextrose (D50w Syringe) 25 ml Q15M PRN IV DECREASED GLUCOSE; Start 07/27/18 at 02:00 Dextrose (D50w Syringe) 50 ml Q15M PRN IV DECREASED GLUCOSE; Start 07/27/18 at 02:00 Glucagon (Glucagen) 1 mg Q15M PRN IM DECREASED GLUCOSE; Start 07/27/18 at 02:00 Glucose (Glutose) 15 gm Q15M PRN BUCCAL DECREASED GLUCOSE; Start 07/27/18 at 02:00 Aspirin (Aspirin) 81 mg DAILY PO Last administered on 07/27/18at 08:31; Admin Dose 81 MG; Start 07/27/18 at 05:00 Atorvastatin Calcium (Lipitor) 80 mg HS PO Last administered on 07/27/18at 05:44; Admin Dose 80 MG; Start 07/27/18 at 05:00 Past Medical History reviewed Medications Current Medications Acetaminophen (Tylenol Liquid) 650 mg Q6H PRN PO PAIN LEVEL 1-3 OR FEVER; Start 07/27/18 at 00:00 Pantoprazole (Protonix Iv) 40 mg DAILY@06 IV Last administered on 07/27/18at 05:44; Admin Dose 40 MG; Start 07/27/18 at 06:00 Hydralazine HCl (Apresoline) 10 mg Q4H PRN IV ELEVATED BLOOD PRESSURE Last administered on 07/27/18at 01:29; Admin Dose 10 MG; Start 07/27/18 at 00:00 Ceftriaxone Sodium 50 ml @ 100 mls/hr Q24H IVPB Last administered on 07/27/18at 00:31; Admin Dose 100 MLS/HR; Start 07/27/18 at 00:00 Dextrose/Sodium Chloride 1,000 ml @ 75 mls/hr [id number] IV Last administered on 07/27/18at 12:39; Admin Dose 75 MLS/HR; Start 07/27/18 at 00:00 Insulin Aspart (Novolog Insulin Pen) NOVOLOG *MILD* ALGORI... Q4 SC ; Start 07/27/18 at 05:00 Miscellaneous Information 1 ea NOTE XX ; Start 07/27/18 at 02:00 Glucose (Glutose) 15 gm Q15M PRN PO DECREASED GLUCOSE; Start 07/27/18 at 02:00 Glucose (Glutose) 22.5 gm Q15M PRN PO DECREASED GLUCOSE; Start 07/27/18 at 02:00 Dextrose (D50w Syringe) 25 ml Q15M PRN IV DECREASED GLUCOSE; Start 07/27/18 at 02:00 Dextrose (D50w Syringe) 50 ml Q15M PRN IV DECREASED GLUCOSE; Start 07/27/18 at 02:00 Glucagon (Glucagen) 1 mg Q15M PRN IM DECREASED GLUCOSE; Start 07/27/18 at 02:00 Glucose (Glutose) 15 gm Q15M PRN BUCCAL DECREASED GLUCOSE; Start 07/27/18 at 02:00 Aspirin (Aspirin) 81 mg DAILY PO Last administered on 07/27/18at 08:31; Admin Dose 81 MG; Start 07/27/18 at 05:00 Atorvastatin Calcium (Lipitor) 80 mg HS PO Last administered on 07/27/18at 05:44; Admin Dose 80 MG; Start 07/27/18 at 05:00 Allergies: Coded Allergies: No Known Allergy (Unverified , 07/26/18) Past Surgical History reviewed Family History Significant Family History: other (stroke - brother (40s)) Social History reviewed Alcohol Use: none Smoking Status: Never smoker Drug Use: none LAINEY BRAGG NP Jul 27, 2018 14:42 JACOB DODD Jul 27, 2018 19:32
--- NOTE | 2018-07-27 16:22 | RADRPT ---
Echocardiogram Report Patient Name: VINICIO SCHWARTZ Gender: Female Date: 1975 Study Date: 27-Jul-2018 Compliance Technician: [facility] Location: 102-A Ref. Physician: ARIANNA DIALLO Quality: Adequate Procedures: Transthoracic echocardiogram with complete 2D, M-Mode, and doppler examination. Indications: Cerebrovascular Accident w/ bubble study. 2D/M Mode Doppler Measurement Value Normal Ranges Measurement Value Normal Ranges LVIDd 2D 4.1 3.5 - 5.6 cm AV Peak Matthew 1.5 m/sec LVIDs 2D 2.7 2.1 - 4.1 cm AV Peak PG 9.0 mmHg LVPWd 2D 0.9 0.6 - 1.1 cm LVOT Peak Matthew 0.9 m/sec IVSd 2D 1.0 0.6 - 1.1 cm LVOT Peak PG 3.0 mmHg AoR Diam 2D 2.7 2.0 - 3.7 cm MV E Peak Matthew 0.8 m/sec LA/Ao 2D 1 0 - 1 MV A Peak Matthew 0.8 m/sec LA Dimen 2D 2.6 2.3 - 4.0 cm MV E/A 1.1 MV Decel Time 158 msec Lat E` Matthew 0.1 m/sec Lateral E/E` 16.6 Med E` Matthew 0.1 m/sec MV E/A 1.1 TR Peak Matthew 2.6 m/sec TR Peak PG 27.0 mmHg RVSP 30.0 mmHg Findings Left Ventricle: Normal left ventricular systolic function. Normal left ventricular cavity size. Normal left ventricular wall thickness. Ejection fraction is visually estimated at 60 %. Tissue Doppler/Mitral Doppler indices are consistent with impaired relaxation (Stage I diastolic dysfunction). Right Ventricle: Normal right ventricular size. Normal right ventricular systolic function. Left Atrium: The left atrium is normal in size. Right Atrium: The right atrium is normal in size. Atrial Septum: Bubble study was performed with and with out valsalva indicating no evidence of intra atrial shunt. Mitral Valve: Mild mitral leaflet calcification. Mild mitral annular calcification. Trace mitral regurgitation. Aortic Valve: No significant aortic stenosis or insufficiency. Aortic cusps appear mildly calcified. Trace aortic valve regurgitation. Tricuspid Valve: Normal appearance of the tricuspid valve. Estimated peak PA systolic pressure 30 mmHg. There is mild tricuspid regurgitation. Pulmonic Valve: Pulmonic valve not well visualized. There is trace pulmonic regurgitation. Pericardium: Trivial to small pericardial effusion. Aorta: Normal aortic root. IVC: Normal size and normal respiratory collapse consistent with normal right atrial pressure. Conclusions Normal left ventricular systolic function. Normal left ventricular cavity size. Normal left ventricular wall thickness. Ejection fraction is visually estimated at 60 %. Tissue Doppler/Mitral Doppler indices are consistent with impaired relaxation (Stage I diastolic dysfunction). Bubble study was performed with and with out valsalva indicating no evidence of intra atrial shunt. Mild mitral leaflet calcification. Mild mitral annular calcification. Trace mitral regurgitation. No significant aortic stenosis or insufficiency. Aortic cusps appear mildly calcified. Trace aortic valve regurgitation. Normal appearance of the tricuspid valve. Estimated peak PA systolic pressure 30 mmHg. There is mild tricuspid regurgitation. Pulmonic valve not well visualized. There is trace pulmonic regurgitation. Electronically Signed By: Kirk Moreland 27-Jul-2018 16:22:10 -0800 Patient Name: VINICIO SCHWARTZ Study Date: 27-Jul-2018 [id number]
[2018-07-28] VITALS (29 sets, daily range): BP systolic 110–157; BP diastolic 57–101; PULSE 63–113; RESP 8–24
[2018-07-28] MEDS: INSULIN ASPART [NOVOLOG] 3 ML PEN SC SCH ×6 (00:59→20:45)
[2018-07-28] MEDS: hydrALAzine 20 MG INJ IV PRN (02:36)
[2018-07-28] MEDS: DEXTROSE 5%-0.45% NACL 1,000 ML IV SCH ×2 (02:37→16:00)
[2018-07-28] MEDS: PANTOPRAZOLE 40 MG INJ IV SCH (05:04)
[2018-07-28] MEDS: ASPIRIN 81 MG TAB PO SCH (09:06)
--- NOTE | 2018-07-28 09:37 | CONS ---
DATE OF ADMISSION: 07/26/2018 DATE OF CONSULTATION: 07/27/2018 REQUESTING PHYSICIAN: Christopher Diallo MD INDICATION FOR CONSULTATION: Stroke with reported shift. HISTORY OF PRESENT ILLNESS: The patient is a 43-year-old female with a history of multiple prior strokes. She came here from [facility] 3 months ago. History is obtained from the patient's daughter. 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 These occurred about 8 years ago. She has essentially been relegated to housework and is effectively blind, only seeing light and shadow. She also may have some occasional memory issues according to patient's daughter. The patient reportedly complained of headaches about 6 days ago. The patient's daughter noticed a slight left facial droop that was new for the patient. Because of financial reasons, the patient did not come to the ER, but ultimately she did come. Currently, she does not complain of any headache, nausea, vomiting, or dizziness. 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 There is minimal 3 mm shift reported by the radiologist. The patient subsequently had an MRI of the brain, which was interpreted to show the same findings, but the mass effect was reported at 5.2 with right to left subfalcine herniation. The patient also had an MRA of the brain which showed hypoplastic intracranial visualized extracranial internal carotid arteries with non- visualization of the anterior and middle cerebral arteries reconstituted distally via extracranial collaterals and lenticilo- striate collateral suggestive of Hernandez-hernandez disease. There is irregularity of the posterior circulation and positive vessels and areas of chronic bilateral temporal, occipital and parietal lobe infarct and encephalomalacia. The patient currently has no complaints. History is predominantly given by the patient's daughter as the patient speaks almost no Persian, although the patient's daughter does. PAST MEDICAL HISTORY: Diabetes, hypertension, hyperlipidemia. Apparently patient occasionally saw a physician in [facility] for her issues. SOCIAL HISTORY: Nonsmoker, nondrinker. PAST SURGICAL HISTORY: Significant for x2. MEDICATIONS: The patient does not take any routine medications. FAMILY HISTORY: No reported history of inherited bleeding disorders or strokes. PHYSICAL EXAMINATION: VITAL SIGNS: The patient's temperature 98.8, pulse 66, respirations 11, blood pressure 110/69, saturating 100% on room air. GENERAL: The patient is well-developed, well-nourished female lying in the hospital bed in no acute distress. HEAD AND NECK: Normocephalic, atraumatic. NEUROLOGIC: Patient is awake. She is alert. She is oriented to place, knowing that she is in the hospital. She does not know the exact date. She will follow commands in her [place] language. Cranial nerves II through XII are serially intact. The patient can see light and shadows but she is effectively blind in both eyes. She has normal facial sensation. She has a slight left inferior lower facial droop when compared to the right. She appears to have grossly normal auditory acuity. No tongue deviation or protrusion. Her motor exam is grossly 5/5 bilateral upper and lower extremities, though again the patient was somewhat noncompliant to assess for pronator drift. Deep tendon reflexes were 2+ throughout with no clonus, Babinski or Emily sign. She appears to have grossly intact sensation. REVIEW OF RADIOGRAPHIC RESULTS: Reviewed MRI of the brain, MRA and CT of the head performed on the 07/26/2018 and 07/27/2018. LABORATORY DATA: Patient's white count 9.3, hemoglobin 11.4, platelets 246. Sodium 139, BUN and creatinine were 12 and 0.88 and glucose of 189. 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 I discussed patient's signs, symptoms, physical examination, radiographic findings with her daughter. Regarding operative neurosurgical issues the patient simply has a common stroke. There is minimal midline shift. No significant mass effect from the stroke that is common. This is not a large MCA territory infarction or hemispheric ICA infarction and that would generally require consideration for any type of a decompressive procedure. In either case, medical management is the primary instituted treatment prior to any consideration for any type of surgical intervention. In this case, the stroke is not large enough for any type or consideration for even medical management. She is minimally if symptomatic at all from any mass effect from the edema from the stroke. I do not see a significant actual difference in the midline shift between the CT and the MRI. This is generally accounted for technical differences, rather than actual progression. Any swelling should be maximal at this point and should resolve. Again standard medical treatment can be instituted prior to any type of consideration for any surgical decompressive treatment and I did not feel for this stroke this will be necessary in this case as initially stated to the ER physician when he had curbsided me regarding this issue. Neurology is consulted to command such issues for ischemic strokes. Regarding the possibility of Hernandez-hernandez disease the patient should be transferred to an endovascular/cerebral vascular institution that may assess for treatments and discuss surgical treatment for such conditions, as such procedures are not able to be performed in this hospital. Regarding surgery for Hernandez-hernandez disease, these are generally not acute issues that require acute surgical treatment, but the patient should be referred to an institution of this nature for followup for evaluation for treatment. I cannot speak on the endovascular treatment of such a disease and therefore, a neuroendovascular assessment should be obtained outside this institution. The patient's daughter expressed understanding and agreement with my recommendations. For the patient's current issue, I see no indication for neurosurgical intervention. Dictated By: DANIEL WATTS MD, LG/TRAVIS Conf#: [id number] DID#: [id number] CC: CHRISTOPHER DIALLO MD;*EndCC* MTDD
--- NOTE | 2018-07-28 15:26 | CONS ---
Assessment/Plan Assessment/Plan Hospital Course A: 43 yo F with Hx of strokes who presents for evaluation of R face arm and leg weakness and dysarthria, concerning for recurrent stroke. MRI brain is most notable for large acute R LUIS/MCA territory infarct MRA H/N most notable for extensive intra/extracranial arterial changes and new lenticulostriate collateral circulation, suggestive of moyamoya CTH is notable for an acute R LUIS infarct and chronic BL occipital lobe and R parietal lobe infarcts. Carotid US is notable for moderate R ICA stenosis EKG was NSR P: Add CTA H/N for further evaluation Consider neurosurgery evaluation pending the above Cont ASA/statin for secondary stroke prevention for now BP, glucose, and other medical management per primary Reorient as necessary Limit sedating medications where possible PT/OT/ST as tolerated Will follow clinically Result Diagram: 07/27/18 0439 07/28/18 0503 Results 24hrs Laboratory Tests Test 07/27/18 18:25 07/27/18 20:38 07/28/18 00:55 07/28/18 04:54 Bedside Glucose 161 166 192 176 Test 07/28/18 05:03 07/28/18 09:05 07/28/18 13:29 Sodium Level 139 Potassium Level 4.0 Chloride Level 102 Carbon Dioxide 24 Level Anion Gap 13 Blood Urea 12 Nitrogen Creatinine 0.88 Glucose Level 189 Calcium Level 9.1 Phosphorus Level 4.4 Magnesium Level 1.8 Albumin 3.9 Bedside Glucose 199 314 H Consultation Date/Type/Reason Admit Date/Time Jul 26, 2018 at 23:33 Type of Consult Neurology Reason for Consultation CVA Requesting Provider: ARIANNA DIALLO Date/Time of Note DATE: 07/28/18 TIME: 15:09 24 HR Interval Summary Free Text/Dictation Transferred to telemetry unit. S/p MRI, MRA H/N. Pt is without complaints for now. Exam Vital Signs Vitals Vital Signs Date Temp Pulse Resp B/P (MAP) Pulse Ox O2 O2 Flow FiO2 Time Delivery Rate 07/28/18 98.2 70 20 140/80 95 Room Air 15:07 (100) Intake and Output 07/27/18 07/27/18 07/28/18 1515:00 23:00 07:00 IntakeIntake Total 830.00 ml 600 ml 600 ml OutputOutput Total 885 ml 875 ml 750 ml BalanceBalance -55.00 ml -275 ml -150 ml Exam PE: Gen Appearance: No Apparent Distress HEENT: Normocephalic Cardiovascular: Regular rate Lungs: Clear bilaterally Abdomen: Soft Extremities: Dry NE: The patient was alert and oriented. Speech was dysarthric and dysphasic. Comprehension impaired. Difficult to redirect. Fund of knowledge was adequate. Pupils were equal and reactive to light. There was no afferent pupillary defect. Visual singh were normal. Funduscopic examination was limited. Extra-ocular movements were full. Ptosis was absent. There was no nystagmus. Facial sensation was normal. Face was asymmetric with diminished activation on the R. Hearing was intact. Palate movements were normal. Neck strength was normal. There was normal tongue bulk and speed of movement. Tone was normal. Muscle bulk was normal. I did not see fasciculations. Arms and legs were strong to confrontation though mildly weaker on the R. Vibration sensation was normal. Temperature and pinprick sensation was normal. Coordination was limited d/t pt's comprehension. Gait was unsteady. Arm and leg reflexes were 2+ and symmetric. Bui's sign was absent. Plantar responses were flexor. LAINEY BRAGG NP Jul 28, 2018 15:20 JACOB DODD Jul 28, 2018 18:53
--- NOTE | 2018-07-28 15:39 | PN ---
Date/Time of Note Date/Time of Note DATE: 07/28/18 TIME: 15:28 Assessment/Plan VTE Prophylaxis Risk score (from Nsg)>0 risk: 4 SCD applied (from Ns): Yes Pharmacological prophylaxis: NA/contraindicated Pharm contraindication: bleeding Lines/Catheters IV Catheter Type (from Nrsg): Peripheral IV Urinary Cath still in place: No Assessment/Plan Assessment/Plan 1. Acute R LUIS/MCA stroke - Neurology on board and appreciate recommendations. CTA head and neck ordered for further evaluation given MRA findings Moyamoya - imaging results noted - ECHO negative for acute issues - PT/OT/ST on board - aspirin and statin 2. Acute 3mm midline shift - seen on CT - Neurosurgical consultation appreciated and no need for emergent intervention at this time. Will need evaluation as high level of care for ?Moyamoya since do not equipped for neuroendovascular interventions at [facility]. This is not emergent and discussed with family and patient need to follow up at tertiary center after discharge 3. Diabetes Mellitus - A1c noted - ISS and accuchecks 4. h/o multiple CVAs in past - Neurology on board 5. UTI - UA noted and Urine culture with <20K grown of strep 6. HLD - on Lipitor - lipid panel results noted 7. Disposition - Stable for transfer to Telemetry - Neurology requesting CTA head and neck for completeness - If remains stable, will d/c in next 24- 48 hours with follow up at tertiary center. Patient just applied for [employer] yesterday and [place] is a barrier at this time >35 minutes of critical care time spent with patient and family at bedside. Result Diagram: 07/27/18 0439 07/28/18 0503 Results 24hrs Laboratory Tests Test 07/27/18 18:25 07/27/18 20:38 07/28/18 00:55 07/28/18 04:54 Bedside Glucose 161 166 192 176 Test 07/28/18 05:03 07/28/18 09:05 07/28/18 13:29 Sodium Level 139 Potassium Level 4.0 Chloride Level 102 Carbon Dioxide 24 Level Anion Gap 13 Blood Urea 12 Nitrogen Creatinine 0.88 Glucose Level 189 Calcium Level 9.1 Phosphorus Level 4.4 Magnesium Level 1.8 Albumin 3.9 Bedside Glucose 199 314 H Subjective 24 Hr Interval Summary Free Text/Dictation Patient responding more quickly today when asked questions. Ambulating with no issues and tolerating diet. Discussed with daughter findings of MRI and need for high level of care but no emergent. Exam/Review of Systems Vital Signs Vitals Vital Signs Date Temp Pulse Resp B/P (MAP) Pulse Ox O2 O2 Flow FiO2 Time Delivery Rate 07/28/18 98.3 83 20 138/77 100 Room Air 15:17 (97) Intake and Output 07/27/18 07/27/18 07/28/18 1515:00 23:00 07:00 IntakeIntake Total 830.00 ml 600 ml 600 ml OutputOutput Total 885 ml 875 ml 750 ml BalanceBalance -55.00 ml -275 ml -150 ml Exam General: Awake and more responsive this am. no acute distress Neck: Supple Lungs: Clear to auscultation bilaterally no crackles rales or wheezing Heart: Normal S1-S2, Regular rhythm and rate. no murmurs Abdomen: Soft , nontender, nondistended, bowel sounds are present. No guarding no rebound tenderness Extremities: Normal to inspection, no edema no cyanosis Neurologic: Delayed response but speech normal, mild right-sided facial droop, strength 4 out of 5 in bilateral upper and lower extremities Medications Medications Current Medications Acetaminophen (Tylenol Liquid) 650 mg Q6H PRN PO PAIN LEVEL 1-3 OR FEVER; Start 07/27/18 at 00:00 Pantoprazole (Protonix Iv) 40 mg DAILY@06 IV Last administered on 07/28/18at 05:04; Admin Dose 40 MG; Start 07/27/18 at 06:00 Hydralazine HCl (Apresoline) 10 mg Q4H PRN IV ELEVATED BLOOD PRESSURE Last administered on 07/28/18at 02:36; Admin Dose 10 MG; Start 07/27/18 at 00:00 Ceftriaxone Sodium 50 ml @ 100 mls/hr Q24H IVPB Last administered on 07/27/18at 23:07; Admin Dose 100 MLS/HR; Start 07/27/18 at 00:00 Dextrose/Sodium Chloride 1,000 ml @ 75 mls/hr [id number] IV Last administered on 07/28/18at 02:37; Admin Dose 75 MLS/HR; Start 07/27/18 at 00:00 Insulin Aspart (Novolog Insulin Pen) NOVOLOG *MILD* ALGORI... Q4 SC Last administered on 07/28/18at 13:34; Admin Dose 5 UNIT; Start 07/27/18 at 05:00 Miscellaneous Information 1 ea NOTE XX ; Start 07/27/18 at 02:00 Glucose (Glutose) 15 gm Q15M PRN PO DECREASED GLUCOSE; Start 07/27/18 at 02:00 Glucose (Glutose) 22.5 gm Q15M PRN PO DECREASED GLUCOSE; Start 07/27/18 at 02:00 Dextrose (D50w Syringe) 25 ml Q15M PRN IV DECREASED GLUCOSE; Start 07/27/18 at 02:00 Dextrose (D50w Syringe) 50 ml Q15M PRN IV DECREASED GLUCOSE; Start 07/27/18 at 02:00 Glucagon (Glucagen) 1 mg Q15M PRN IM DECREASED GLUCOSE; Start 07/27/18 at 02:00 Glucose (Glutose) 15 gm Q15M PRN BUCCAL DECREASED GLUCOSE; Start 07/27/18 at 02:00 Aspirin (Aspirin) 81 mg DAILY PO Last administered on 07/28/18at 09:06; Admin Dose 81 MG; Start 07/27/18 at 05:00 Atorvastatin Calcium (Lipitor) 80 mg HS PO Last administered on 07/27/18at 20:39; Admin Dose 80 MG; Start 07/27/18 at 05:00 ADITYA KUMAR MD Jul 28, 2018 15:38
[2018-07-28] MEDS: ATORVASTATIN 80 MG TAB PO SCH (20:32)
[2018-07-28] MEDS ORDERED: IOHEXOL 100 ML ONE (21:38)
[2018-07-28] MEDS ORDERED: SOD CHLORIDE 0.9% 100 ML ONE (21:38)
[2018-07-28] MEDS: CEFTRIAXONE 1 GM/50 ML (PMX) 50 ML IVPB SCH (23:50)
[2018-07-29] VITALS (12 sets, daily range): BP systolic 111–175; BP diastolic 55–86; PULSE 70–100; RESP 18–20
[2018-07-29] MEDS: INSULIN ASPART [NOVOLOG] 3 ML PEN SC SCH ×6 (01:05→20:38)
[2018-07-29] MEDS: hydrALAzine 20 MG INJ IV PRN (03:39)
[2018-07-29] MEDS: PANTOPRAZOLE 40 MG INJ IV SCH (05:06)
[2018-07-29] MEDS: DEXTROSE 5%-0.45% NACL 1,000 ML IV SCH (05:06)
[2018-07-29] MEDS: ASPIRIN 81 MG TAB PO SCH (08:43)
[2018-07-29] MEDS ORDERED: IBUPROFEN 600 MG TAB PO PRN (09:00)
--- NOTE | 2018-07-29 09:01 | PN ---
Date/Time of Note Date/Time of Note DATE: 07/29/18 TIME: 09:01 Assessment/Plan VTE Prophylaxis Risk score (from Nsg)>0 risk: 3 SCD applied (from Ns): Yes Pharmacological prophylaxis: NA/contraindicated Pharm contraindication: bleeding Lines/Catheters IV Catheter Type (from Nrsg): Saline Lock Urinary Cath still in place: No Assessment/Plan Assessment/Plan 1. Acute R LUIS/MCA stroke - Neurology on board and appreciate recommendations. CTA head and neck results noted - ECHO negative for acute issues - PT/OT/ST on board - aspirin and statin 2. Acute 3mm midline shift - seen on CT - Neurosurgical consultation appreciated and no need for emergent intervention at this time. Will need evaluation as high level of care for Moyamoya since [facility] not equipped for neuroendovascular interventions. This is not emergent and discussed with family and patient need to follow up at tertiary center after discharge 3. Diabetes Mellitus - A1c noted - resume home metformin - ISS and accuchecks 4. h/o multiple CVAs in past - Neurology on board 5. UTI - UA noted and Urine culture with <20K grown of strep 6. HLD - on Lipitor - lipid panel results noted 7. Teeth pain - discussed need to follow with dentist after discharge - will order mouth care for now 8. HTN - on lisinopril and will resume home atenolol 9. Disposition - Once BP well controlled and cleared by Neurology, will d/c home Result Diagram: 07/27/18 0439 07/28/18 0503 Results 24hrs Laboratory Tests Test 07/28/18 09:05 07/28/18 13:29 07/28/18 17:16 07/28/18 20:43 Bedside Glucose 199 314 H 221 H 274 H Test 07/29/18 01:01 07/29/18 05:05 07/29/18 08:42 Bedside Glucose 258 H 253 H 256 H Subjective 24 Hr Interval Summary Free Text/Dictation Patient doing better this am and more talkative per son. No acute distress. Still with elevated BP this am and will need better control prior to d/c. Exam/Review of Systems Vital Signs Vitals Vital Signs Date Temp Pulse Resp B/P (MAP) Pulse Ox O2 O2 Flow FiO2 Time Delivery Rate 07/29/18 91 08:35 07/29/18 98.6 20 136/75 100 07:35 (95) 07/28/18 Room Air 15:17 Intake and Output 07/28/18 07/28/18 07/29/18 1515:00 23:00 07:00 IntakeIntake Total 1485 ml 1350 ml OutputOutput Total 750 ml 1350 ml BalanceBalance 735 ml 0 ml Exam General: Awake and more responsive this am. no acute distress Neck: Supple Lungs: Clear to auscultation bilaterally no crackles rales or wheezing Heart: Normal S1-S2, Regular rhythm and rate. no murmurs Abdomen: Soft , nontender, nondistended, bowel sounds are present. No guarding no rebound tenderness Extremities: Normal to inspection, no edema no cyanosis Neurologic: Speech normal, mild right-sided facial droop, strength 4 out of 5 in bilateral upper and lower extremities Medications Medications Current Medications Acetaminophen (Tylenol Liquid) 650 mg Q6H PRN PO PAIN LEVEL 1-3 OR FEVER Last administered on 07/28/18at 17:28; Admin Dose 650 MG; Start 07/27/18 at 00:00 Pantoprazole (Protonix Iv) 40 mg DAILY@06 IV Last administered on 07/29/18at 05:06; Admin Dose 40 MG; Start 07/27/18 at 06:00 Hydralazine HCl (Apresoline) 10 mg Q4H PRN IV ELEVATED BLOOD PRESSURE Last administered on 07/29/18at 03:39; Admin Dose 10 MG; Start 07/27/18 at 00:00 Ceftriaxone Sodium 50 ml @ 100 mls/hr Q24H IVPB Last administered on 07/28/18at 23:50; Admin Dose 100 MLS/HR; Start 07/27/18 at 00:00 Dextrose/Sodium Chloride 1,000 ml @ 75 mls/hr [id number] IV Last administered on 07/28/18at 02:37; Admin Dose 75 MLS/HR; Start 07/27/18 at 00:00 Insulin Aspart (Novolog Insulin Pen) NOVOLOG *MILD* ALGORI... Q4 SC Last administered on 07/29/18at 08:52; Admin Dose 3 UNIT; Start 07/27/18 at 05:00 Miscellaneous Information 1 ea NOTE XX ; Start 07/27/18 at 02:00 Glucose (Glutose) 15 gm Q15M PRN PO DECREASED GLUCOSE; Start 07/27/18 at 02:00 Glucose (Glutose) 22.5 gm Q15M PRN PO DECREASED GLUCOSE; Start 07/27/18 at 02:00 Dextrose (D50w Syringe) 25 ml Q15M PRN IV DECREASED GLUCOSE; Start 07/27/18 at 02:00 Dextrose (D50w Syringe) 50 ml Q15M PRN IV DECREASED GLUCOSE; Start 07/27/18 at 02:00 Glucagon (Glucagen) 1 mg Q15M PRN IM DECREASED GLUCOSE; Start 07/27/18 at 02:00 Glucose (Glutose) 15 gm Q15M PRN BUCCAL DECREASED GLUCOSE; Start 07/27/18 at 02:00 Aspirin (Aspirin) 81 mg DAILY PO Last administered on 07/29/18at 08:43; Admin Dose 81 MG; Start 07/27/18 at 05:00 Atorvastatin Calcium (Lipitor) 80 mg HS PO Last administered on 07/28/18at 20:32; Admin Dose 80 MG; Start 07/27/18 at 05:00 ADITYA KUMAR MD Jul 29, 2018 09:01
[2018-07-29] MEDS: LISINOPRIL 10 MG TAB PO SCH (09:21)
[2018-07-29] MEDS: CHLORHEXIDINE GLUCONATE 15 ML UD CUP MT SCH ×2 (09:22→20:35)
--- NOTE | 2018-07-29 13:06 | CONS ---
Assessment/Plan Assessment/Plan Hospital Course A: 43 yo F with Hx of strokes who presents for evaluation of R face arm and leg weakness and dysarthria, concerning for recurrent stroke. MRI brain is most notable for large acute R LUIS/MCA territory infarct MRA H/N most notable for extensive intra/extracranial arterial changes and new lenticulostriate collateral circulation, suggestive of moyamoya CTA H/N is notable for multifocal stenoses and collateral circulation, confirming a diagnosis of Moyamoya. CTH is notable for an acute R LUIS infarct and chronic BL occipital lobe and R parietal lobe infarcts. Carotid US is notable for moderate R ICA stenosis EKG was NSR P Recommend neurosurgery evaluation given moyamoya...for ? EC-IC bypass Cont ASA/statin for secondary stroke prevention for now BP, glucose, and other medical management per primary Reorient as necessary Limit sedating medications where possible PT/OT/ST as tolerated, with plan for acute rehab on d/c where possible Will follow clinically Result Diagram: 07/27/18 0439 07/28/18 0503 Results 24hrs Laboratory Tests Test 07/28/18 13:29 07/28/18 17:16 07/28/18 20:43 07/29/18 01:01 Bedside Glucose 314 H 221 H 274 H 258 H Test 07/29/18 05:05 07/29/18 08:42 07/29/18 12:08 Bedside Glucose 253 H 256 H 222 H Consultation Date/Type/Reason Admit Date/Time Jul 26, 2018 at 23:33 Type of Consult Neurology Reason for Consultation CVA Requesting Provider: ARIANNA DIALLO Date/Time of Note DATE: 07/29/18 TIME: 13:06 24 HR Interval Summary Free Text/Dictation Continues telemetry monitoring. S/p CTA H/N. Pt reportedly not talking today. Exam Vital Signs Vitals Vital Signs Date Temp Pulse Resp B/P (MAP) Pulse Ox O2 O2 Flow FiO2 Time Delivery Rate 07/29/18 91 12:18 07/29/18 97.6 20 122/63 95 11:21 (82) 07/28/18 Room Air 15:17 Intake and Output 07/28/18 07/28/18 07/29/18 1515:00 23:00 07:00 IntakeIntake Total 1485 ml 1350 ml OutputOutput Total 750 ml 1350 ml BalanceBalance 735 ml 0 ml Exam PE: Gen Appearance: No Apparent Distress HEENT: Normocephalic Cardiovascular: Regular rate Abdomen: Soft Extremities: Dry NE: The patient was lethargic and nonverbal. Comprehension impaired. Able to follow simple commands only. Cranial nerve examination was limited by mental status. Pupils were equal and reactive to light. There was no afferent pupillary defect. Funduscopic examination was limited. Face was grossly symmetric, w/ present corneal and cough reflexes. Tone was normal. Muscle bulk was normal. I did not see fasciculations. The patient was antigravity in all extremities. Coordination and gait testing was limited by mental status. Arm and leg reflexes were within normal limits and symmetric. Bui's sign was absent. Plantar responses were flexor. LAINEY BRAGG NP Jul 29, 2018 13:06 JACOB DODD Jul 30, 2018 07:06
[2018-07-29] MEDS: metFORMIN 850 MG TAB PO SCH (18:32)
[2018-07-29] MEDS: ATORVASTATIN 80 MG TAB PO SCH (20:35)
[2018-07-30] VITALS (14 sets, daily range): BP systolic 111–166; BP diastolic 58–92; PULSE 75–102; RESP 18–20
[2018-07-30] MEDS: CEFTRIAXONE 1 GM/50 ML (PMX) 50 ML IVPB SCH (00:51)
[2018-07-30] MEDS: INSULIN ASPART [NOVOLOG] 3 ML PEN SC SCH ×6 (01:20→20:14)
[2018-07-30] MEDS: PANTOPRAZOLE 40 MG INJ IV SCH (05:44)
[2018-07-30] MEDS: metFORMIN 850 MG TAB PO SCH ×3 (07:55→18:04)
[2018-07-30] MEDS: ATENOLOL 50 MG TAB PO SCH (08:30)
[2018-07-30] MEDS: LISINOPRIL 10 MG TAB PO SCH (08:30)
[2018-07-30] MEDS: ASPIRIN 81 MG TAB PO SCH (08:30)
[2018-07-30] MEDS: CHLORHEXIDINE GLUCONATE 15 ML UD CUP MT SCH ×2 (08:30→20:13)
--- NOTE | 2018-07-30 09:04 | PN ---
Date/Time of Note Date/Time of Note DATE: 07/30/18 TIME: 09:04 Assessment/Plan VTE Prophylaxis Risk score (from Nsg)>0 risk: 4 SCD applied (from Nsg): Yes Pharmacological prophylaxis: other Lines/Catheters IV Catheter Type (from Nrsg): Saline Lock Urinary Cath still in place: No Assessment/Plan Assessment/Plan 1. Acute R LUIS/MCA stroke - Neurology on board and appreciate recommendations. CTA head and neck results noted - ECHO negative for acute issues - PT/OT/ST on board - continue on aspirin and statin 2. Acute 3mm midline shift - seen on CT - Neurosurgical consultation appreciated and no need for emergent intervention at this time. Will need evaluation as high level of care for M[place] since [facility] not equipped for neuroendovascular interventions. This is not emergent and discussed with family and patient need to follow up at tertiary center after dis charge 3. Diabetes Mellitus - A1c noted - resume home metformin tomorrow - ISS and accuchecks 4. h/o multiple CVAs in past - Neurology on board 5. UTI - UA noted and Urine culture with <20K grown of strep 6. HLD - on Lipitor - lipid panel results noted 7. Teeth pain - discussed need to follow with dentist after discharge - will order mouth care for now 8. HTN - on lisinopril and will resume home atenolol. adjust as needed for BP control 9. Disposition - Need better BP control - Patient not steady on feet but due to medi-maru pending, may have no choice but dispo home with roberto walker? Result Diagram: 07/27/18 0439 07/28/18 0503 Results 24hrs Laboratory Tests Test 07/29/18 12:08 07/29/18 17:18 07/29/18 18:31 07/29/18 20:36 Bedside Glucose 222 H 215 210 313 H Test 07/30/18 00:49 07/30/18 05:43 07/30/18 08:28 Bedside Glucose 277 H 241 H 169 Subjective 24 Hr Interval Summary Free Text/Dictation Patient less talkative today but will open eyes to voice and command. Daughter and at bedside and states she has not been very steady on feet while ambulating. Concerned about getting speech therapy to help with facial droop. Exam/Review of Systems Vital Signs Vitals Vital Signs Date Temp Pulse Resp B/P (MAP) Pulse Ox O2 O2 Flow FiO2 Time Delivery Rate 07/30/18 102 08:47 07/30/18 98.8 19 119/82 96 07:35 (94) 07/30/18 Room Air 04:06 Intake and Output 07/29/18 07/29/18 07/30/18 1515:00 23:00 07:00 IntakeIntake Total 560 ml 50 ml OutputOutput Total 1000 ml 700 ml BalanceBalance -440 ml -650 ml Exam General: Lethargic, no acute distress Neck: Supple Lungs: Clear to auscultation bilaterally no crackles rales or wheezing Heart: Normal S1-S2, Regular rhythm and rate. no murmurs Abdomen: Soft , nontender, nondistended, bowel sounds are present. No guarding no rebound tenderness Extremities: Normal to inspection, no edema no cyanosis Neurologic: Speech normal, mild right-sided facial droop, strength 4 out of 5 in bilateral upper and lower extremities Medications Medications Current Medications Acetaminophen (Tylenol Liquid) 650 mg Q6H PRN PO PAIN LEVEL 1-3 OR FEVER Last administered on 07/28/18at 17:28; Admin Dose 650 MG; Start 07/27/18 at 00:00 Pantoprazole (Protonix Iv) 40 mg DAILY@06 IV Last administered on 07/30/18at 05:44; Admin Dose 40 MG; Start 07/27/18 at 06:00 Hydralazine HCl (Apresoline) 10 mg Q4H PRN IV ELEVATED BLOOD PRESSURE Last administered on 07/29/18at 03:39; Admin Dose 10 MG; Start 07/27/18 at 00:00 Ceftriaxone Sodium 50 ml @ 100 mls/hr Q24H IVPB Last administered on 07/30at 00:51; Admin Dose 100 MLS/HR; Start 07/27/18 at 00:00 Insulin Aspart (Novolog Insulin Pen) NOVOLOG *MILD* ALGORI... Q4 SC Last administered on 07/30/18at 08:35; Admin Dose 1 UNIT; Start 07/27/18 at 05:00 Miscellaneous Information 1 ea NOTE XX ; Start 07/27/18 at 02:00 Glucose (Glutose) 15 gm Q15M PRN PO DECREASED GLUCOSE; Start 07/27/18 at 02:00 Glucose (Glutose) 22.5 gm Q15M PRN PO DECREASED GLUCOSE; Start 07/27/18 at 02:00 Dextrose (D50w Syringe) 25 ml Q15M PRN IV DECREASED GLUCOSE; Start 07/27/18 at 02:00 Dextrose (D50w Syringe) 50 ml Q15M PRN IV DECREASED GLUCOSE; Start 07/27/18 at 02:00 Glucagon (Glucagen) 1 mg Q15M PRN IM DECREASED GLUCOSE; Start 07/27/18 at 02:00 Glucose (Glutose) 15 gm Q15M PRN BUCCAL DECREASED GLUCOSE; Start 07/27/18 at 02:00 Aspirin (Aspirin) 81 mg DAILY PO Last administered on 07/30/18 08:30; Admin Dose 81 MG; Start 07/27/18 at 05:00 Atorvastatin Calcium (Lipitor) 80 mg HS PO Last administered on 07/29/18 20:35; Admin Dose 80 MG; Start 07/27/18 at 05:00 Lisinopril (Zestril) 10 mg DAILY PO Last administered on 07/30/18 08:30; Admin Dose 10 MG; Start 07/29/18 at 09:00 Ibuprofen (Motrin) 600 mg Q6H PRN PO MILD PAIN LEVEL 1-3 Last administered on 07/29/18 09:20; Admin Dose 600 MG; Start 07/29/18 at 09:00 Chlorhexidine Gluconate (Peridex) 15 ml BID MT Last administered on 07/30/18 08:30; Admin Dose 15 ML; Start 07/29/18 at 09:00 Atenolol (Tenormin) 50 mg DAILY PO Last administered on 07/30/18 08:30; Admin Dose 50 MG; Start 07/30/18 at 09:00 Metformin HCl (Glucophage) 850 mg WITH BREAKFAST DINNE PO Last administered on 07/29/18 18:32; Admin Dose 850 MG; Start 07/29/18 at 17:55 ADITYA KUMAR MD Jul 30, 2018 09:04
[2018-07-30] MEDS: hydrALAzine 20 MG INJ IV PRN (18:04)
[2018-07-30] MEDS: ATORVASTATIN 80 MG TAB PO SCH (20:13)
[2018-07-31] MEDS: CEFTRIAXONE 1 GM/50 ML (PMX) 50 ML IVPB SCH (00:25)
[2018-07-31 01:53] VITALS: BP 142/80; PULSE 86; RESP 18
[2018-07-31 08:00] VITALS: BP 142/58; PULSE 86; RESP 20
[2018-07-31] MEDS: PANTOPRAZOLE 40 MG INJ IV SCH (08:02)
[2018-07-31] MEDS: INSULIN ASPART [NOVOLOG] 3 ML PEN SC SCH ×4 (08:34→20:57)
[2018-07-31] MEDS: metFORMIN 850 MG TAB PO SCH ×2 (08:36→17:48)
[2018-07-31] MEDS: ASPIRIN 81 MG TAB PO SCH (08:37)
[2018-07-31] MEDS: CHLORHEXIDINE GLUCONATE 15 ML UD CUP MT SCH ×2 (08:37→20:58)
[2018-07-31] MEDS: LISINOPRIL 20 MG TAB PO SCH (08:37)
[2018-07-31] MEDS: ATENOLOL 50 MG TAB PO SCH (08:37)
--- NOTE | 2018-07-31 12:03 | CONS ---
Assessment/Plan Assessment/Plan Hospital Course A: 43 yo F with Hx of strokes who presents for evaluation of R face arm and leg weakness and dysarthria, concerning for recurrent stroke. MRI brain is most notable for large acute R LUIS/MCA territory infarct MRA H/N most notable for extensive intra/extracranial arterial changes and new lenticulostriate collateral circulation, suggestive of m[place] CTA H/N is notable for multifocal stenoses and collateral circulation, confirming a diagnosis of M[place]. CTH is notable for an acute R LUIS infarct and chronic BL occipital lobe and R parietal lobe infarcts. Carotid US is notable for moderate R ICA stenosis EKG was NSR P Cont ASA/statin for secondary stroke prevention for now BP, glucose, and other medical management per primary Reorient as necessary Limit sedating medications where possible PT/OT/ST as tolerated Will follow clinically Result Diagram: 07/31/18 0515 07/31/18 0515 Results 24hrs Laboratory Tests Test 07/30/18 17:28 07/30/18 20:07 07/31/18 02:16 07/31/18 05:15 Bedside Glucose 235 H 275 H 245 H White Blood 11.7 #H Count Red Blood Count 4.71 Hemoglobin 12.7 Hematocrit 39.1 Mean Corpuscular 83.0 Volume Mean Corpuscular 27.0 L Hemoglobin Mean Corpuscular 32.5 Hemoglobin Na nt Red Cell 12.3 Distribution Width Platelet Count 300 # Mean Platelet 12.7 H Volume Immature 0.400 Granulocytes % Neutrophils % 56.5 Lymphocytes % 34.7 Monocytes % 6.1 Eosinophils % 2.0 Basophils % 0.3 Nucleated Red 0.0 Blood Cells % Immature 0.050 H Granulocytes # Neutrophils # 6.6 Lymphocytes # 4.1 H Monocytes # 0.7 Eosinophils # 0.2 Basophils # 0.0 Nucleated Red 0.0 Blood Cells # Sodium Level 135 Potassium Level 4.4 Chloride Level 100 Carbon Dioxide 24 Level Anion Gap 11 Blood Urea 14 Nitrogen Creatinine 0.93 Glucose Level 269 H Calcium Level 9.5 Phosphorus Level 4.3 Magnesium Level 1.7 Albumin 4.0 Test 07/31/18 08:08 Bedside Glucose 235 H Consultation Date/Type/Reason Admit Date/Time Jul 26, 2018 at 23:33 Type of Consult Neurology Reason for Consultation CVA Requesting Provider: ARIANNA DIALLO Date/Time of Note DATE: 07/31/18 TIME: 12:03 24 HR Interval Summary Free Text/Dictation Continues medsurg monitoring. Seen by neurosurgery. Son at bedside states that the pt has increasingly more difficult to arouse. Subjective hx not possible: pt non-verbal Exam Vital Signs Vitals Vital Signs Date Temp Pulse Resp B/P (MAP) Pulse Ox O2 O2 Flow FiO2 Time Delivery Rate 07/31/18 98.6 86 20 142/58 96 08:00 (86) 07/30/18 Room Air 04:06 Intake and Output 07/30/18 07/30/18 07/31/18 1515:00 23:00 07:00 IntakeIntake Total 400 ml 50 ml OutputOutput Total 700 ml BalanceBalance 400 ml -700 ml 50 ml Exam PE: Gen Appearance: No Apparent Distress HEENT: Normocephalic Cardiovascular: Regular rate Abdomen: Soft Extremities: Dry NE: The patient was obtunded and nonverbal. Able to open eyes briefly to noxious stimuli. Unable to follow any commands. Cranial nerve examination was limited by mental status. Pupils were equal and reactive to light. There was no afferent pupillary defect. Funduscopic examination was limited. Face was grossly symmetric, w/ present corneal and cough reflexes. Tone was normal. Muscle bulk was normal. I did not see fasciculations. The patient withdrew extremities to noxious stimuli. Coordination and gait testing was limited by mental status. Arm and leg reflexes were within normal limits and symmetric. Bui's sign was absent. Plantar responses were flexor. LAINEY BRAGG NP Jul 31, 2018 12:03 JACOB DODD Jul 31, 2018 20:37
[2018-07-31] MEDS ORDERED: REPAGLINIDE 1 MG TAB PO SCH (12:30)
--- NOTE | 2018-07-31 13:05 | PN ---
Date/Time of Note Date/Time of Note DATE: 07/31/18 TIME: 13:05 Objective Vitals Vital Signs Date Temp Pulse Resp B/P (MAP) Pulse Ox O2 O2 Flow FiO2 Time Delivery Rate 07/31/18 98.6 86 20 142/58 96 08:00 (86) 07/30/18 Room Air 04:06 Intake and Output 07/30/18 07/30/18 07/31/18 1515:00 23:00 07:00 IntakeIntake Total 400 ml 50 ml OutputOutput Total 700 ml BalanceBalance 400 ml -700 ml 50 ml Results Result Diagram: 07/31/1815 07/31/1815 Medications Medications Current Medications Acetaminophen (Tylenol Liquid) 650 mg Q6H PRN PO PAIN LEVEL 1-3 OR FEVER Last administered on 07/28/18at 17:28; Admin Dose 650 MG; Start 07/27/18 at 00:00 Pantoprazole (Protonix Iv) 40 mg DAILY@06 IV Last administered on 07/31/18at 08:02; Admin Dose 40 MG; Start 07/27/18 at 06:00 Hydralazine HCl (Apresoline) 10 mg Q4H PRN IV ELEVATED BLOOD PRESSURE Last administered on 07/30/18at 18:04; Admin Dose 10 MG; Start 07/27/18 at 00:00 Miscellaneous Information 1 ea NOTE XX ; Start 07/27/18 at 02:00 Glucose (Glutose) 15 gm Q15M PRN PO DECREASED GLUCOSE; Start 07/27/18 at 02:00 Glucose (Glutose) 22.5 gm Q15M PRN PO DECREASED GLUCOSE; Start 07/27/18 at 02:00 Dextrose (D50w Syringe) 25 ml Q15M PRN IV DECREASED GLUCOSE; Start 07/27/18 at 02:00 Dextrose (D50w Syringe) 50 ml Q15M PRN IV DECREASED GLUCOSE; Start 07/27/18 at 02:00 Glucagon (Glucagen) 1 mg Q15M PRN IM DECREASED GLUCOSE; Start 07/27/18 at 02:00 Glucose (Glutose) 15 gm Q15M PRN BUCCAL DECREASED GLUCOSE; Start 07/27/18 at 02:00 Aspirin (Aspirin) 81 mg DAILY PO Last administered on 07/31/18at 08:37; Admin Dose 81 MG; Start 07/27/18 at 05:00 Atorvastatin Calcium (Lipitor) 80 mg HS PO Last administered on 07/30/18at 2 0:13; Admin Dose 80 MG; Start 07/27/18 at 05:00 Ibuprofen (Motrin) 600 mg Q6H PRN PO MILD PAIN LEVEL 1-3 Last administered on 07/29/18at 09:20; Admin Dose 600 MG; Start 07/29/18 at 09:00 Chlorhexidine Gluconate (Peridex) 15 ml BID MT Last administered on 07/31/18at 08:37; Admin Dose 15 ML; Start 07/29/18 at 09:00 Atenolol (Tenormin) 50 mg DAILY PO Last administered on 07/31/18at 08:37; Admin Dose 50 MG; Start 07/30/18 at 09:00 Metformin HCl (Glucophage) 850 mg WITH BREAKFAST DINNE PO Last administered on 07/31/18at 08:36; Admin Dose 850 MG; Start 07/29/18 at 17:55 Lisinopril (Zestril) 20 mg DAILY PO Last administered on 07/31/18at 08:37; Admin Dose 20 MG; Start 07/31/18 at 09:00 Cephalexin (Keflex) 500 mg BID PO ; Start 07/31/18 at 12:30 Insulin Aspart (Novolog Insulin Pen) NOVOLOG *MODERATE* ALGORITHM WITH MEALS BEDTIME SC Last administered on 07/31/18at 12:27; Admin Dose 4 UNIT; Start 07/31/18 at 12:00 Repaglinide (Prandin) 1 mg WITH MEALS PO ; Start 07/31/18 at 13:30 Sodium Chloride 1,000 ml @ 40 mls/hr Q24H IV ; Start 07/31/18 at 12:30 VTE Prophylaxis Risk score (from Nsg)>0 risk: 3 SCD applied (from Nsg): Yes Lines/Catheters IV Catheter Type: Laguerre in Place: No Assessment/Plan Hospital Course Subjective Patient is very sleepy and difficult to arouse, snoring Objective Physical exam General: Patient is laying in bed sleeping Mentation: Sleeping Head: Normocephalic atraumatic Eyes: EOMI, pupils reactive to light Neck: Supple, nontender, midline Respiratory: Clear to auscultation bilaterally Cardiovascular: regular rate, no obvious murmurs Gastrointestinal: non-tender to palpation, bowel sounds heard. Neurological: Moves all extremities spontaneously Skin: No new skin lesions Assessment/Plan 1. Acute R LUIS/MCA stroke - Neurology on board and appreciate recommendations. CTA head and neck results noted - ECHO negative for acute issues - PT/OT/ST on board - continue on aspirin and statin acute on chronic encephalopathy -unkonwn if sequelae from CVA from this event -however appears to be worsening, more sleepy compared to previous two days -stat MRI pending and ABG pending. 2. Acute 3-5mm midline shift - seen on CT - Neurosurgical consultation appreciated and no need for emergent intervention at this time. Will need evaluation as high level of care for M[place] since [facility] not equipped for neuroendovascular interventions. This is not emergent and discussed with family and patient need to follow up at tertiary center after discharge. neurosurgeon compared both MRI/MRA/CT and states mild differences are negligible between the studies. 3. Diabetes Mellitus - A1c noted - resume home metformin - prandin as tolerated - ISS and accuchecks 4. h/o multiple CVAs in past - Neurology on board 5. UTI - UA noted and Urine culture with <20K grown of strep -keflex now 6. HLD - on Lipitor - lipid panel results noted 7. Teeth pain - discussed need to follow with dentist after discharge - will order mouth care for now 8. HTN - on lisinopril and will resume home atenolol. adjust as needed for BP control 9. Disposition - patient too sleepy -MRI and ABG pending DARNELL SHELL Jul 31, 2018 13:05
[2018-07-31] MEDS: REPAGLINIDE 1 MG TAB PO SCH ×2 (13:30→17:48)
[2018-07-31 14:00] VITALS: BP 120/69; PULSE 73; RESP 20
[2018-07-31] MEDS: SOD CHLORIDE 0.45% 1,000 ML IV SCH (14:57)
[2018-07-31] MEDS: CEPHALEXIN 500 MG CAP PO SCH ×2 (15:02→20:57)
[2018-07-31 20:00] VITALS: BP 120/78; PULSE 80; RESP 18
[2018-07-31] MEDS: ATORVASTATIN 80 MG TAB PO SCH (20:57)
[2018-08-01 01:58] VITALS: BP 114/56; PULSE 66; RESP 18
[2018-08-01] MEDS: PANTOPRAZOLE 40 MG INJ IV SCH (05:54)
[2018-08-01] MEDS ORDERED: PERMETHRIN 1% 59 ML TOP ONE (07:00)
[2018-08-01 08:00] VITALS: BP 126/73; PULSE 73; RESP 18
[2018-08-01] MEDS: INSULIN ASPART [NOVOLOG] 3 ML PEN SC SCH ×4 (08:11→20:44)
[2018-08-01] MEDS: metFORMIN 850 MG TAB PO SCH ×2 (08:12→17:26)
[2018-08-01] MEDS: REPAGLINIDE 1 MG TAB PO SCH ×3 (08:12→17:26)
[2018-08-01] MEDS: CEPHALEXIN 500 MG CAP PO SCH ×2 (08:13→20:43)
[2018-08-01] MEDS: ASPIRIN 81 MG TAB PO SCH (08:13)
[2018-08-01] MEDS: LISINOPRIL 20 MG TAB PO SCH (09:10)
[2018-08-01] MEDS: ATENOLOL 50 MG TAB PO SCH (09:10)
[2018-08-01] MEDS: CHLORHEXIDINE GLUCONATE 15 ML UD CUP MT SCH ×2 (09:10→20:43)
--- NOTE | 2018-08-01 12:46 | CONS ---
Assessment/Plan Assessment/Plan Hospital Course A: 43 yo F with Hx of strokes who presents for evaluation of R face arm and leg weakness and dysarthria, concerning for recurrent stroke. MRI brain is most notable for large acute R LUIS/MCA territory infarct. Repeat MRI shows an evolution of the infarct but is without further acute intracranial pathology. MRA H/N most notable for extensive intra/extracranial arterial changes and new lenticulostriate collateral circulation, suggestive of m[place] CTA H/N is notable for multifocal stenoses and collateral circulation, confirming a diagnosis of [place]. CTH is notable for an acute R LUIS infarct and chronic BL occipital lobe and R parietal lobe infarcts. Carotid US is notable for moderate R ICA stenosis EKG was NSR P Cont ASA/statin for secondary stroke prevention for now BP, glucose, and other medical management per primary Reorient as necessary Limit sedating medications where possible PT/OT/ST as tolerated, with plan for acute rehab where possible Will follow clinically Result Diagram: 08/01/18 0657 08/01/18 0657 Results 24hrs Laboratory Tests Test 07/31/18 17:44 07/31/18 20:56 08/01/18 06:57 08/01/18 08:04 Bedside Glucose 230 H 164 171 White Blood Count 11.0 H Red Blood Count 4.43 Hemoglobin 12.0 Hematocrit 36.4 L Mean Corpuscular 82.2 Volume Mean Corpuscular 27.1 L Hemoglobin Mean Corpuscular 33.0 Hemoglobin Concent Red Cell 12.4 Distribution Width Platelet Count 276 Mean Platelet Volume 12.8 H Immature 0.500 H Granulocytes % Neutrophils % 51.1 Lymphocytes % 37.9 Monocytes % 6.7 Eosinophils % 3.3 Basophils % 0.5 Nucleated Red Blood 0.0 Cells % Immature 0.060 H Granulocytes # Neutrophils # 5.6 Lymphocytes # 4.2 H Monocytes # 0.7 Eosinophils # 0.4 Basophils # 0.1 Nucleated Red Blood 0.0 Cells # Sodium Level 134 L Potassium Level 4.5 Chloride Level 98 Carbon Dioxide Level 25 Anion Gap 11 Blood Urea Nitrogen 17 Creatinine 0.91 Est Glomerular > 60 Filtrat Rate mL/min Glucose Level 186 Calcium Level 9.2 Phosphorus Level 4.6 Magnesium Level 1.7 Test 08/01/18 12:05 Bedside Glucose 283 H Consultation Date/Type/Reason Admit Date/Time Jul 26, 2018 at 23:33 Type of Consult Neurology Reason for Consultation CVA Requesting Provider: ARIANNA DIALLO Date/Time of Note DATE: 08/01/18 TIME: 12:46 24 HR Interval Summary Free Text/Dictation Continues medsurg monitoring. No acute events reported. Family states that the pt was more awake and alert today, was able to eat full meals and was able to take a shower today. Exam Vital Signs Vitals Vital Signs Date Temp Pulse Resp B/P (MAP) Pulse Ox O2 O2 Flow FiO2 Time Delivery Rate 08/01/18 97.8 73 18 126/73 96 08:00 (90) 07/30/18 Room Air 04:06 Intake and Output 07/31/18 07/31/18 08/01/18 1515:00 23:00 07:00 IntakeIntake Total 350 ml 360 ml 520 ml OutputOutput Total 1200 ml 1200 ml BalanceBalance 350 ml -840 ml -680 ml Exam PE: Gen Appearance: No Apparent Distress HEENT: Normocephalic Cardiovascular: Regular rate Abdomen: Soft Extremities: Dry NE: The patient was lethargic and nonverbal. Able to open eyes briefly to loud voice. Did not follow any commands. Cranial nerve examination was limited by mental status. Pupils were equal and reactive to light. There was no afferent pupillary defect. Funduscopic examination was limited. Face was grossly symmetric, w/ present corneal and cough reflexes. Tone was normal. Muscle bulk was normal. I did not see fasciculations. The patient withdrew extremities to noxious stimuli. Coordination and gait testing was limited by mental status. Arm and leg reflexes were within normal limits and symmetric. Bui's sign was absent. Plantar responses were flexor. LAINEY BRAGG NP Aug 01, 2018 12:46 JACOB DODD Aug 02, 2018 06:29
--- NOTE | 2018-08-01 12:55 | PN ---
Date/Time of Note Date/Time of Note DATE: 08/01/18 TIME: 12:52 Objective Vitals Vital Signs Date Temp Pulse Resp B/P (MAP) Pulse Ox O2 O2 Flow FiO2 Time Delivery Rate 08/01/18 97.8 73 18 126/73 96 08:00 (90) 07/30/18 Room Air 04:06 Intake and Output 07/31/18 07/31/18 08/01/18 1414:59 22:59 06:59 IntakeIntake Total 350 ml 360 ml 520 ml OutputOutput Total 1200 ml 1200 ml BalanceBalance 350 ml -840 ml -680 ml Results Result Diagram: 08/01/18 0657 08/01/18 0657 Medications Medications Current Medications Acetaminophen (Tylenol Liquid) 650 mg Q6H PRN PO PAIN LEVEL 1-3 OR FEVER Last administered on 07/28/18at 17:28; Admin Dose 650 MG; Start 07/27/18 at 00:00 Pantoprazole (Protonix Iv) 40 mg DAILY@06 IV Last administered on 08/01/18at 05:54; Admin Dose 40 MG; Start 07/27/18 at 06:00 Hydralazine HCl (Apresoline) 10 mg Q4H PRN IV ELEVATED BLOOD PRESSURE Last administered on 07/30/18at 18:04; Admin Dose 10 MG; Start 07/27/18 at 00:00 Miscellaneous Information 1 ea NOTE XX ; Start 07/27/18 at 02:00 Glucose (Glutose) 15 gm Q15M PRN PO DECREASED GLUCOSE; Start 07/27/18 at 02:00 Glucose (Glutose) 22.5 gm Q15M PRN PO DECREASED GLUCOSE; Start 07/27/18 at 02:00 Dextrose (D50w Syringe) 25 ml Q15M PRN IV DECREASED GLUCOSE; Start 07/27/18 at 02:00 Dextrose (D50w Syringe) 50 ml Q15M PRN IV DECREASED GLUCOSE; Start 07/27/18 at 02:00 Glucagon (Glucagen) 1 mg Q15M PRN IM DECREASED GLUCOSE; Start 07/27/18 at 02:00 Glucose (Glutose) 15 gm Q15M PRN BUCCAL DECREASED GLUCOSE; Start 07/27/18 at 02:00 Aspirin (Aspirin) 81 mg DAILY PO Last administered on 08/01/18at 08:13; Admin Dose 81 MG; Start 07/27/18 at 05:00 Atorvastatin Calcium (Lipitor) 80 mg HS PO Last administered on 07/31/18at 20:57; Admin Dose 80 MG; Start 07/27/18 at 05:00 Ibuprofen (Motrin) 600 mg Q6H PRN PO MILD PAIN LEVEL 1-3 Last administered on 07/29/18 09:20; Admin Dose 600 MG; Start 07/29/18 at 09:00 Chlorhexidine Gluconate (Peridex) 15 ml BID MT Last administered on 08/01/18 09:10; Admin Dose 15 ML; Start 07/29/18 at 09:00 Atenolol (Tenormin) 50 mg DAILY PO Last administered on 08/01/18 09:10; Admin Dose 50 MG; Start 07/30/18 at 09:00 Metformin HCl (Glucophage) 850 mg WITH BREAKFAST DINNE PO Last administered on 08/01/18 08:12; Admin Dose 850 MG; Start 07/29/18 at 17:55 Lisinopril (Zestril) 20 mg DAILY PO Last administered on 08/01/18 09:10; Admin Dose 20 MG; Start 07/31/18 at 09:00 Cephalexin (Keflex) 500 mg BID PO Last administered on 08/01/18 08:13; Admin Dose 500 MG; Start 07/31/18 at 12:30 Insulin Aspart (Novolog Insulin Pen) NOVOLOG *MODERATE* ALGORITHM WITH MEALS BEDTIME SC Last administered on 08/01/18 12:06; Admin Dose 8 UNIT; Start 07/31/18 at 12:00 Repaglinide (Prandin) 1 mg WITH MEALS PO Last administered on 08/01/18 12:06; Admin Dose 1 MG; Start 07/31/18 at 13:30 Sodium Chloride 1,000 ml @ 40 mls/hr Q24H IV Last administered on 07/31/18at 14:57; Admin Dose 40 MLS/HR; Start 07/31/18 at 12:30 VTE Prophylaxis Risk score (from Nsg)>0 risk: 5 SCD applied (from Nsg): Yes Lines/Catheters IV Catheter Type: Laguerre in Place: No Assessment/Plan Hospital Course Subjective Patient is very sleepy and difficult to arouse still, but was able to eat breakfast with feeding from son Objective Physical exam General: Patient is laying in bed sleeping Mentation: Sleeping Head: Normocephalic atraumatic Eyes: EOMI, pupils reactive to light Neck: Supple, nontender, midline Respiratory: Clear to auscultation bilaterally Cardiovascular: regular rate, no obvious murmurs Gastrointestinal: non-tender to palpation, bowel sounds heard. Neurological: Moves all extremities spontaneously Skin: No new skin lesions Assessment/Plan Acute R LUIS/MCA stroke - Neurology on board and appreciate recommendations. CTA head and neck results noted - ECHO negative for acute issues - PT/OT/ST on board - continue on aspirin and statin acute on chronic encephalopathy -likely sequelae from CVA from this event -repeat MRI showing stable changes, nothing acute -abg wnl -possible this will be patient's new baseline Acute 3-5mm midline shift - seen on CT - Neurosurgical consultation appreciated and no need for emergent intervention at this time. Will need evaluation as high level of care for [place] since [facility] not equipped for neuroendovascular interventions. This is not emergent and discussed with family and patient need to follow up at tertiary center after discharge. neurosurgeon compared both MRI/MRA/CT and states mild differences are negligible between the studies. Diabetes Mellitus - A1c noted - resume home metformin - prandin as tolerated - ISS and accuchecks h/o multiple CVAs in past - Neurology on board - 2/2 m[place], needs neurosurgeon at a specialized center, likely [facility], but not emergent. UTI - UA noted and Urine culture with <20K grown of strep -keflex now HLD - on Lipitor - lipid panel results noted Teeth pain - discussed need to follow with dentist after discharge HTN - on lisinopril and will resume home atenolol. adjust as needed for BP control Disposition -will need to discuss with family future plans as patient unable to ambulate on her own, or follow commands, also with [facility] pending has limited options. DARNELL SHELL Aug 01, 2018 12:55
[2018-08-01 14:00] VITALS: BP 128/82; PULSE 76; RESP 20
[2018-08-01] MEDS: SOD CHLORIDE 0.45% 1,000 ML IV SCH (17:26)
[2018-08-01 19:23] VITALS: BP 113/59; PULSE 80; RESP 18
[2018-08-01] MEDS: ATORVASTATIN 80 MG TAB PO SCH (20:43)
[2018-08-02 02:25] VITALS: BP 154/76; PULSE 73; RESP 18
[2018-08-02] MEDS: PANTOPRAZOLE 40 MG INJ IV SCH (05:40)
[2018-08-02] MEDS: CEPHALEXIN 500 MG CAP PO SCH ×2 (08:06→21:19)
[2018-08-02] MEDS: ASPIRIN 81 MG TAB PO SCH (08:06)
[2018-08-02] MEDS: CHLORHEXIDINE GLUCONATE 15 ML UD CUP MT SCH ×2 (08:06→21:19)
[2018-08-02] MEDS: INSULIN ASPART [NOVOLOG] 3 ML PEN SC SCH ×4 (08:06→21:00)
[2018-08-02] MEDS: LISINOPRIL 20 MG TAB PO SCH (08:07)
[2018-08-02] MEDS: REPAGLINIDE 1 MG TAB PO SCH ×3 (08:07→17:26)
[2018-08-02] MEDS: ATENOLOL 50 MG TAB PO SCH (08:07)
[2018-08-02] MEDS: metFORMIN 850 MG TAB PO SCH ×2 (08:07→17:27)
[2018-08-02 08:10] VITALS: BP 136/68; PULSE 61; RESP 16
[2018-08-02] MEDS: DEXTROSE 5%-0.45% NACL 1,000 ML IV SCH (09:06)
--- NOTE | 2018-08-02 10:25 | CONS ---
Assessment/Plan Assessment/Plan Hospital Course A: 43 yo F with Hx of strokes who presents for evaluation of R face arm and leg weakness and dysarthria, concerning for recurrent stroke. MRI brain is most notable for large acute R LUIS/MCA territory infarct. Repeat MRI shows an evolution of the infarct but is without further acute intracranial pathology. MRA H/N most notable for extensive intra/extracranial arterial changes and new lenticulostriate collateral circulation, suggestive of moyamoya CTA H/N is notable for multifocal stenoses and collateral circulation, confirming a diagnosis of Moyamoya. CTH is notable for an acute R LUIS infarct and chronic BL occipital lobe and R parietal lobe infarcts. Carotid US is notable for moderate R ICA stenosis EKG was NSR P: Cont ASA/statin for secondary stroke prevention for now BP, glucose, and other medical management per primary Reorient as necessary Limit sedating medications where possible PT/OT/ST as tolerated, with plan for acute rehab where possible Will follow clinically Result Diagram: 08/02/18 0557 08/02/18 0557 Results 24hrs Laboratory Tests Test 08/01/18 12:05 08/01/18 17:24 08/01/18 20:42 08/02/18 02:13 Bedside Glucose 283 H 267 H 283 H 157 Test 08/02/18 05:57 08/02/18 08:02 White Blood Count 14.4 #H Red Blood Count 4.43 Hemoglobin 12.2 Hematocrit 37.5 Mean Corpuscular Volume 84.7 Mean Corpuscular 27.5 L Hemoglobin Mean Corpuscular 32.5 Hemoglobin Concent Red Cell Distribution 12.4 Width Platelet Count 271 Mean Platelet Volume 12.7 H Immature Granulocytes % 0.500 H Neutrophils % 64.7 Lymphocytes % 22.6 Monocytes % 9.1 Eosinophils % 2.8 Basophils % 0.3 Nucleated Red Blood 0.0 Cells % Immature Granulocytes # 0.070 H Neutrophils # 9.3 H Lymphocytes # 3.3 H Monocytes # 1.3 H Eosinophils # 0.4 Basophils # 0.1 Nucleated Red Blood 0.0 Cells # Sodium Level 138 Potassium Level 4.7 Chloride Level 100 Carbon Dioxide Level 26 Anion Gap 12 Blood Urea Nitrogen 17 Creatinine 0.85 Est Glomerular Filtrat > 60 Rate mL/min Glucose Level 179 Calcium Level 9.2 Phosphorus Level 4.2 Magnesium Level 1.7 Bedside Glucose 197 Consultation Date/Type/Reason Admit Date/Time Jul 26, 2018 at 23:33 Type of Consult Neurology Requesting Provider: ARIANNA DIALLO Date/Time of Note DATE: 08/02/18 TIME: 10:24 Exam Vital Signs Vitals Vital Signs Date Temp Pulse Resp B/P (MAP) Pulse Ox O2 O2 Flow FiO2 Time Delivery Rate 08/02/18 99.1 61 16 136/68 99 08:10 (90) 07/30/18 Room Air 04:06 Intake and Output 08/01/18 08/01/18 08/02/18 1515:00 23:00 07:00 IntakeIntake Total 240 ml 840 ml 480 ml OutputOutput Total 400 ml 300 ml BalanceBalance -160 ml 540 ml 480 ml Exam PE: Gen Appearance: No Apparent Distress HEENT: Normocephalic Cardiovascular: Regular rate Abdomen: Soft Extremities: Dry NE: The patient was lethargic and nonverbal. Cranial nerve examination was limited by mental status. Pupils were equal and reactive to light. There was no afferent pupillary defect. Funduscopic examination was limited. Face was grossly symmetric, w/ present corneal refle xes. Tone was normal. Muscle bulk was normal. I did not see fasciculations. The patient withdrew to noxious stimulation x 4. Coordination and gait testing was limited by mental status. Arm and leg reflexes were symmetric. Bui's sign was absent. Plantar responses were flexor. JACOB DODD Aug 02, 2018 10:25
--- NOTE | 2018-08-02 12:58 | PN ---
Date/Time of Note Date/Time of Note DATE: 08/02/18 TIME: 12:56 Objective Vitals Vital Signs Date Temp Pulse Resp B/P (MAP) Pulse Ox O2 O2 Flow FiO2 Time Delivery Rate 08/02/18 99.1 61 16 136/68 99 08:10 (90) 07/30/18 Room Air 04:06 Intake and Output 08/01/18 08/01/18 08/02/18 1515:00 23:00 07:00 IntakeIntake Total 240 ml 840 ml 480 ml OutputOutput Total 400 ml 300 ml BalanceBalance -160 ml 540 ml 480 ml Results Result Diagram: 08/02/18 0557 08/02/18 0557 Medications Medications Current Medications Acetaminophen (Tylenol Liquid) 650 mg Q6H PRN PO PAIN LEVEL 1-3 OR FEVER Last administered on 07/28/18at 17:28; Admin Dose 650 MG; Start 07/27/18 at 00:00 Pantoprazole (Protonix Iv) 40 mg DAILY@06 IV Last administered on 08/02/18at 05:40; Admin Dose 40 MG; Start 07/27/18 at 06:00 Hydralazine HCl (Apresoline) 10 mg Q4H PRN IV ELEVATED BLOOD PRESSURE Last administered on 07/30/18at 18:04; Admin Dose 10 MG; Start 07/27/18 at 00:00 Miscellaneous Information 1 ea NOTE XX ; Start 07/27/18 at 02:00 Glucose (Glutose) 15 gm Q15M PRN PO DECREASED GLUCOSE; Start 07/27/18 at 02:00 Glucose (Glutose) 22.5 gm Q15M PRN PO DECREASED GLUCOSE; Start 07/27/18 at 02:00 Dextrose (D50w Syringe) 25 ml Q15M PRN IV DECREASED GLUCOSE; Start 07/27/18 at 02:00 Dextrose (D50w Syringe) 50 ml Q15M PRN IV DECREASED GLUCOSE; Start 07/27/18 at 02:00 Glucagon (Glucagen) 1 mg Q15M PRN IM DECREASED GLUCOSE; Start 07/27/18 at 02:00 Glucose (Glutose) 15 gm Q15M PRN BUCCAL DECREASED GLUCOSE; Start 07/27/18 at 0 2:00 Aspirin (Aspirin) 81 mg DAILY PO Last administered on 08/02/18at 08:06; Admin Dose 81 MG; Start 07/27/18 at 05:00 Atorvastatin Calcium (Lipitor) 80 mg HS PO Last administered on 08/01/18 20:43; Admin Dose 80 MG; Start 07/27/18 at 05:00 Ibuprofen (Motrin) 600 mg Q6H PRN PO MILD PAIN LEVEL 1-3 Last administered on 07/29/18 09:20; Admin Dose 600 MG; Start 07/29/18 at 09:00 Chlorhexidine Gluconate (Peridex) 15 ml BID MT Last administered on 08/02/18 08:06; Admin Dose 15 ML; Start 07/29/18 at 09:00 Atenolol (Tenormin) 50 mg DAILY PO Last administered on 08/02/18 08:07; Admin Dose 50 MG; Start 07/30/18 at 09:00 Metformin HCl (Glucophage) 850 mg WITH BREAKFAST DINNE PO Last administered on 08/02/18 08:07; Admin Dose 850 MG; Start 07/29/18 at 17:55 Lisinopril (Zestril) 20 mg DAILY PO Last administered on 08/02/18 08:07; Admin Dose 20 MG; Start 07/31/18 at 09:00 Cephalexin (Keflex) 500 mg BID PO Last administered on 08/02/18 08:06; Admin Dose 500 MG; Start 07/31/18 at 12:30 Insulin Aspart (Novolog Insulin Pen) NOVOLOG *MODERATE* ALGORITHM WITH MEALS BEDTIME SC Last administered on 08/02/18 08:06; Admin Dose 4 UNIT; Start 07/31/18 at 12:00 Repaglinide (Prandin) 1 mg WITH MEALS PO Last administered on 08/02/18 12:08; Admin Dose 1 MG; Start 07/31/18 at 13:30 Dextrose/Sodium Chloride 1,000 ml @ 40 mls/hr Q24H IV Last administered on 08/02/18 09:06; Admin Dose 40 MLS/HR; Start 08/02/18 at 09:00 VTE Prophylaxis Risk score (from Nsg)>0 risk: 2 SCD applied (from Nsg): Yes Lines/Catheters IV Catheter Type: Laguerre in Place: No Assessment/Plan Hospital Course Subjective Patient is more alert and moves to command Objective Physical exam General: Patient is laying in bed awake and moves to command Mentation:alert and oriented somewhat Head: Normocephalic atraumatic Eyes: EOMI, pupils reactive to light Neck: Supple, nontender, midline Respiratory: Clear to auscultation bilaterally Cardiovascular: regular rate, no obvious murmurs Gastrointestinal: non-tender to palpation, bowel sounds heard. Neurological: Moves all extremities spontaneously Skin: No new skin lesions Assessment/Plan Acute R LUIS/MCA stroke - Neurology on board and appreciate recommendations. CTA head and neck results noted - ECHO negative for acute issues - PT/OT/ST on board - continue on aspirin and statin acute on chronic encephalopathy -likely sequelae from CVA from this event -repeat MRI showing stable changes, nothing acute -abg wnl -possible this will be patient's new baseline, weak, but alert and follows command Acute 3-5mm midline shift - seen on CT - Neurosurgical consultation appreciated and no need for emergent intervention at this time. Will need evaluation as high level of care for Moyamoya since [facility] not equipped for neuroendovascular interventions. This is not emergent and discussed with family and patient need to follow up at tertiary center after discharge. neurosurgeon compared both MRI/MRA/CT and states mild differences are negligible between the studies. Diabetes Mellitus - A1c noted - resume home metformin - prandin as tolerated - ISS and accuchecks h/o multiple CVAs in past - Neurology on board - 2/2 moyamoya, needs neurosurgeon at a specialized center, likely [facility], but not emergent. UTI - UA noted and Urine culture with <20K grown of strep -keflex now HLD - on Lipitor - lipid panel results noted Teeth pain - discussed need to follow with dentist after discharge HTN - on lisinopril and will resume home atenolol. adjust as needed for BP control Disposition -will need to discuss with family future plans as patient will need extensive care. DARNELL SHELL Aug 02, 2018 12:58
[2018-08-02] MEDS ORDERED: ONDANSETRON 4 MG INJ IV PRN (14:00)
[2018-08-02 14:27] VITALS: BP 134/76; PULSE 95; RESP 16
[2018-08-02 20:08] VITALS: BP 139/65; PULSE 18; PULSE 74; RESP 18
[2018-08-02] MEDS: ATORVASTATIN 80 MG TAB PO SCH (21:19)
[2018-08-03 02:00] VITALS: BP 135/75; PULSE 73; RESP 18
[2018-08-03] MEDS ORDERED: PANTOPRAZOLE 40 MG INJ ONE (02:37)
[2018-08-03] MEDS: PANTOPRAZOLE (EC) 40 MG TAB PO SCH (05:23)
[2018-08-03 07:45] VITALS: BP 150/89; PULSE 77; RESP 18
[2018-08-03] MEDS: REPAGLINIDE 1 MG TAB PO SCH ×3 (08:50→17:53)
[2018-08-03] MEDS: metFORMIN 850 MG TAB PO SCH ×2 (08:51→17:53)
[2018-08-03] MEDS: INSULIN ASPART [NOVOLOG] 3 ML PEN SC SCH ×4 (08:53→21:00)
[2018-08-03] MEDS: CHLORHEXIDINE GLUCONATE 15 ML UD CUP MT SCH ×2 (08:53→21:00)
[2018-08-03] MEDS: ASPIRIN 81 MG TAB PO SCH (08:53)
[2018-08-03] MEDS: CEPHALEXIN 500 MG CAP PO SCH ×2 (08:53→21:00)
[2018-08-03] MEDS: DEXTROSE 5%-0.45% NACL 1,000 ML IV SCH ×2 (08:54→10:35)
[2018-08-03] MEDS: ATENOLOL 50 MG TAB PO SCH (08:54)
[2018-08-03] MEDS: LISINOPRIL 20 MG TAB PO SCH (08:54)
[2018-08-03] MEDS ORDERED: MAGNESIUM SULFATE 2 GM/50 ML 50 ML IVPB ONE (10:30)
[2018-08-03 14:35] VITALS: BP 89/57; PULSE 73
--- NOTE | 2018-08-03 14:46 | CONS ---
Assessment/Plan Assessment/Plan Hospital Course A: 43 yo F with Hx of strokes who presents for evaluation of R face arm and leg weakness and dysarthria, concerning for recurrent stroke. MRI brain is most notable for large acute R LUIS/MCA territory infarct. Repeat MRI shows an evolution of the infarct but is without further acute intracranial pathology. MRA H/N most notable for extensive intra/extracranial arterial changes and new lenticulostriate collateral circulation, suggestive of moyamoya CTA H/N is consistent with a diagnosis of Moyam[place]. P: Cont ASA/statin for secondary stroke prevention for now BP, glucose, and other medical management per primary Reorient as necessary Limit sedating medications where possible PT/OT/ST as tolerated, with plan for acute rehab where possible Will follow clinically Result Diagram: 08/03/18 0810 08/03/18 0809 Results 24hrs Laboratory Tests Test 08/02/18 17:26 08/02/18 21:16 08/03/18 08:09 08/03/18 08:10 Bedside Glucose 162 128 Sodium Level 138 Potassium Level 4.6 Chloride Level 100 Carbon Dioxide 26 Level Anion Gap 12 Blood Urea 18 Nitrogen Creatinine 0.84 Est Glomerular > 60 Filtrat Rate mL/min Glucose Level 243 H Calcium Level 9.2 Phosphorus Level 4.5 Magnesium Level 1.6 L White Blood Count 11.2 #H Red Blood Count 4.27 Hemoglobin 11.6 L Hematocrit 36.2 L Mean Corpuscular 84.8 Volume Mean Corpuscular 27.2 L Hemoglobin Mean Corpuscular 32.0 Hemoglobin Concent Red Cell 12.1 Distribution Width Platelet Count 315 Mean Platelet 12.8 H Volume Immature 0.700 H Granulocytes % Neutrophils % 58.5 Lymphocytes % 30.7 Monocytes % 6.0 Eosinophils % 3.7 Basophils % 0.4 Nucleated Red 0.0 Blood Cells % Immature 0.080 H Granulocytes # Neutrophils # 6.6 Lymphocytes # 3.5 H Monocytes # 0.7 Eosinophils # 0.4 Basophils # 0.1 Nucleated Red 0.0 Blood Cells # Test 08/03/18 08:30 08/03/18 11:34 08/03/18 11:42 08/03/18 12:47 Bedside Glucose 281 H 128 Lab Scanned Report REFERENCE LAB REFERENCE LAB Consultation Date/Type/Reason Admit Date/Time Jul 26, 2018 at 23:33 Type of Consult Neurology Reason for Consultation CVA Requesting Provider: ARIANNA DIALLO Date/Time of Note DATE: 08/03/18 TIME: 14:46 24 HR Interval Summary Free Text/Dictation Continues medsurg monitoring. No acute events or changes in pt condition reported. Exam Vital Signs Vitals Vital Signs Date Temp Pulse Resp B/P (MAP) Pulse Ox O2 O2 Flow FiO2 Time Delivery Rate 08/03/18 98.4 73 89/57 (68) 100 Room Air 14:35 08/03/18 18 07:45 Intake and Output 08/02/18 08/02/18 08/03/18 1515:00 23:00 07:00 IntakeIntake Total 360 ml 1120 ml 540 ml OutputOutput Total 1600 ml 650 ml 600 ml BalanceBalance -1240 ml 470 ml -60 ml Exam PE: Gen Appearance: No Apparent Distress HEENT: Normocephalic Cardiovascular: Regular rate Abdomen: Soft Extremities: Dry NE: The patient was lethargic and nonverbal. Cranial nerve examination was limited by mental status. Pupils were equal and reactive to light. There was no afferent pupillary defect. Funduscopic examination was limited. Face was grossly symmetric, w/ present corneal reflexes. Tone was normal. Muscle bulk was normal. I did not see fasciculations. The patient withdrew to noxious stimulation x 4. Coordination and gait testing was limited by mental status. Arm and leg reflexes were symmetric. Bui's sign was absent. Plantar responses were flexor. LAINEY BRAGG NP Aug 03, 2018 14:46 JACOB DODD Aug 03, 2018 19:15
--- NOTE | 2018-08-03 15:12 | PN ---
Date/Time of Note Date/Time of Note DATE: 08/03/18 TIME: 15:11 Objective Vitals Vital Signs Date Temp Pulse Resp B/P (MAP) Pulse Ox O2 O2 Flow FiO2 Time Delivery Rate 08/03/18 98.4 73 89/57 (68) 100 Room Air 14:35 08/03/18 18 07:45 Intake and Output 08/02/18 08/02/18 08/03/18 1414:59 22:59 06:59 IntakeIntake Total 360 ml 1120 ml 540 ml OutputOutput Total 1600 ml 650 ml 600 ml BalanceBalance -1240 ml 470 ml -60 ml Results Result Diagram: 08/03/18 0810 08/03/18 0809 Medications Medications Current Medications Acetaminophen (Tylenol Liquid) 650 mg Q6H PRN PO PAIN LEVEL 1-3 OR FEVER Last administered on 07/28/18at 17:28; Admin Dose 650 MG; Start 07/27/18 at 00:00 Hydralazine HCl (Apresoline) 10 mg Q4H PRN IV ELEVATED BLOOD PRESSURE Last administered on 07/30/18at 18:04; Admin Dose 10 MG; Start 07/27/18 at 00:00 Miscellaneous Information 1 ea NOTE XX ; Start 07/27/18 at 02:00 Glucose (Glutose) 15 gm Q15M PRN PO DECREASED GLUCOSE; Start 07/27/18 at 02:00 Glucose (Glutose) 22.5 gm Q15M PRN PO DECREASED GLUCOSE; Start 07/27/18 at 02:00 Dextrose (D50w Syringe) 25 ml Q15M PRN IV DECREASED GLUCOSE; Start 07/27/18 at 02:00 Dextrose (D50w Syringe) 50 ml Q15M PRN IV DECREASED GLUCOSE; Start 07/27/18 at 02:00 Glucagon (Glucagen) 1 mg Q15M PRN IM DECREASED GLUCOSE; Start 07/27/18 at 02:00 Glucose (Glutose) 15 gm Q15M PRN BUCCAL DECREASED GLUCOSE; Start 07/27/18 at 02:00 Aspirin (Aspirin) 81 mg DAILY PO Last administered on 08/03/18at 08:53; Admin Dose 81 MG; Start 07/27/18 at 05:00 Atorvastatin Calcium (Lipitor) 80 mg HS PO Last administered on 08/02/18at 21:19; Admin Dose 80 MG; Start 07/27/18 at 05:00 Ibuprofen (Motrin) 600 mg Q6H PRN PO MILD PAIN LEVEL 1-3 Last administered on 07/29/18at 09:20; Admin Dose 600 MG; Start 07/29/18 at 09:00 Chlorhexidine Gluconate (Peridex) 15 ml BID MT Last administered on 08/03/18 08:53; Admin Dose 15 ML; Start 07/29/18 at 09:00 Atenolol (Tenormin) 50 mg DAILY PO Last administered on 08/03/18 08:54; Admin Dose 50 MG; Start 07/30/18 at 09:00 Metformin HCl (Glucophage) 850 mg WITH BREAKFAST DINNE PO Last administered on 08/03/18 08:51; Admin Dose 850 MG; Start 07/29/18 at 17:55 Lisinopril (Zestril) 20 mg DAILY PO Last administered on 08/03/18 08:54; Admin Dose 20 MG; Start 07/31/18 at 09:00 Cephalexin (Keflex) 500 mg BID PO Last administered on 08/03/18 08:53; Admin Dose 500 MG; Start 07/31/18 at 12:30 Insulin Aspart (Novolog Insulin Pen) NOVOLOG *MODERATE* ALGORITHM WITH MEALS BEDTIME SC Last administered on 08/03/18 08:53; Admin Dose 8 UNIT; Start 07/31/18 at 12:00 Repaglinide (Prandin) 1 mg WITH MEALS PO Last administered on 08/03/18 12:59; Admin Dose 1 MG; Start 07/31/18 at 13:30 Dextrose/Sodium Chloride 1,000 ml @ 40 mls/hr Q24H IV Last administered on 08/03/18 10:35; Admin Dose 40 MLS/HR; Start 08/02/18 at 09:00 Ondansetron HCl (Zofran Inj) 4 mg Q6H PRN IV NAUSEA AND/OR VOMITING Last administered on 08/02/18 13:51; Admin Dose 4 MG; Start 08/02/18 at 14:00 Pantoprazole (Protonix Tab) 40 mg DAILY@06 PO Last administered on 08/03/18 05:23; Admin Dose 40 MG; Start 08/03/18 at 06:00 VTE Prophylaxis Risk score (from Nsg)>0 risk: 3 SCD applied (from Nsg): Yes Lines/Catheters IV Catheter Type: Laguerre in Place: No Assessment/Plan Hospital Course Subjective Patient is more alert, moves to command and responds to questions Objective Physical exam General: Patient is laying in bed awake and moves to command Mentation:alert and oriented somewhat Head: Normocephalic atraumatic Eyes: EOMI, pupils reactive to light Neck: Supple, nontender, midline Respiratory: Clear to auscultation bilaterally Cardiovascular: regular rate, no obvious murmurs Gastrointestinal: non-tender to palpation, bowel sounds heard. Neurological: Moves all extremities spontaneously Skin: No new skin lesions Assessment/Plan Acute R LUIS/MCA stroke - Neurology on board and appreciate recommendations. CTA head and neck results noted - ECHO negative for acute issues - PT/OT/ST on board - continue on aspirin and statin acute on chronic encephalopathy -likely sequelae from CVA from this event -repeat MRI showing stable changes, nothing acute -abg wnl -possible this will be patient's new baseline, weak, but alert and follows command Acute 3-5mm midline shift - seen on CT - Neurosurgical consultation appreciated and no need for emergent intervention at this time. Will need evaluation as high level of care for Moyamoya since [facility] not equipped for neuroendovascular interventions. This is not emergent and discussed with family and patient need to follow up at tertiary center after dis charge. neurosurgeon compared both MRI/MRA/CT and states mild differences are negligible between the studies. Diabetes Mellitus - A1c noted - resume home metformin - prandin as tolerated - ISS and accuchecks h/o multiple CVAs in past - Neurology on board - 2/2 moyamoya, needs neurosurgeon at a specialized center, likely [facility], but not emergent. UTI - UA noted and Urine culture with <20K grown of strep -keflex now HLD - on Lipitor - lipid panel results noted Teeth pain - discussed need to follow with dentist after discharge HTN - on lisinopril and will resume home atenolol. adjust as needed for BP control Disposition -will need to discuss with family future plans as patient will need extensive care. -SNF placement for now DARNELL SHELL Aug 03, 2018 15:11
[2018-08-03 20:11] VITALS: BP 113/69; PULSE 81; RESP 18
[2018-08-03] MEDS: ATORVASTATIN 80 MG TAB PO SCH (21:00)
[2018-08-04 03:19] VITALS: BP 131/62; PULSE 64; RESP 20
[2018-08-04] MEDS: PANTOPRAZOLE (EC) 40 MG TAB PO SCH (05:27)
[2018-08-04] MEDS: REPAGLINIDE 1 MG TAB PO SCH ×3 (08:04→17:30)
[2018-08-04] MEDS: INSULIN ASPART [NOVOLOG] 3 ML PEN SC SCH ×4 (08:04→20:59)
[2018-08-04] MEDS: metFORMIN 850 MG TAB PO SCH ×2 (08:05→17:30)
[2018-08-04 08:06] VITALS: BP 133/80; PULSE 83; RESP 18
[2018-08-04] MEDS: DEXTROSE 5%-0.45% NACL 1,000 ML IV SCH ×2 (09:00→15:10)
[2018-08-04] MEDS: LISINOPRIL 20 MG TAB PO SCH (09:04)
[2018-08-04] MEDS: ASPIRIN 81 MG TAB PO SCH (09:04)
[2018-08-04] MEDS: CEPHALEXIN 500 MG CAP PO SCH ×2 (09:04→20:41)
[2018-08-04] MEDS: ATENOLOL 50 MG TAB PO SCH (09:04)
[2018-08-04] MEDS: CHLORHEXIDINE GLUCONATE 15 ML UD CUP MT SCH ×2 (09:05→20:41)
--- NOTE | 2018-08-04 12:13 | CONS ---
Assessment/Plan Assessment/Plan Hospital Course A: 43 yo F with Hx of strokes who presents for evaluation of R face arm and leg weakness and dysarthria, concerning for recurrent stroke. MRI brain is most notable for large acute R LUIS/MCA territory infarct. Repeat MRI shows an evolution of the infarct but is without further acute intracranial pathology. MRA H/N most notable for extensive intra/extracranial arterial changes and new lenticulostriate collateral circulation, suggestive of moyamoya CTA H/N is consistent with a diagnosis of Moy[place]. P: Cont ASA/statin for secondary stroke prevention for now BP, glucose, and other medical management per primary Reorient as necessary Limit sedating medications where possible PT/OT/ST as tolerated, with plan for acute rehab where possible Will follow clinically Result Diagram: 08/04/1852508/04/18525 Results 24hrs Laboratory Tests Test 08/03/18 12:47 08/03/18 17:48 08/03/18 20:58 08/04/18 05:26 Bedside Glucose 128 151 135 White Blood Count 15.1 #H Red Blood Count 4.27 Hemoglobin 11.6 L Hematocrit 36.3 L Mean Corpuscular 85.0 Volume Mean Corpuscular 27.2 L Hemoglobin Mean Corpuscular 32.0 Hemoglobin Concent Red Cell Distribution 12.2 Width Platelet Count 351 Mean Platelet Volume 12.2 H Immature Granulocytes 1.000 H % Neutrophils % 61.6 Lymphocytes % 27.2 Monocytes % 6.0 Eosinophils % 3.8 Basophils % 0.4 Nucleated Red Blood 0.0 Cells % Immature Granulocytes 0.150 H # Neutrophils # 9.3 H Lymphocytes # 4.1 H Monocytes # 0.9 Eosinophils # 0.6 H Basophils # 0.1 Nucleated Red Blood 0.0 Cells # Sodium Level 139 Potassium Level 4.8 Chloride Level 100 Carbon Dioxide Level 26 Anion Gap 13 Blood Urea Nitrogen 17 Creatinine 0.97 Est Glomerular > 60 Filtrat Rate mL/min Glucose Level 173 Calcium Level 9.5 Phosphorus Level 5.4 H Magnesium Level 1.8 Test 08/04/18 08:02 08/04/18 10:34 08/04/18 11:54 Bedside Glucose 163 113 Lab Scanned Report REFERENCE LAB Consultation Date/Type/Reason Admit Date/Time Jul 26, 2018 at 23:33 Type of Consult Neurology Reason for Consultation CVA Requesting Provider: ARIANNA DIALLO Date/Time of Note DATE: 08/04/18 TIME: 12:11 24 HR Interval Summary Free Text/Dictation Continues medsurg monitoring. No acute events or changes in pt condition reported today. Exam Vital Signs Vitals Vital Signs Date Temp Pulse Resp B/P (MAP) Pulse Ox O2 O2 Flow FiO2 Time Delivery Rate 08/04/18 98.3 83 18 133/80 99 08:06 (97) 08/03/18 Room Air 14:35 Intake and Output 08/03/18 08/03/18 08/04/18 1515:00 23:00 07:00 IntakeIntake Total 550 ml 800 ml 310 ml OutputOutput Total 700 ml 1650 ml 850 ml BalanceBalance -150 ml -850 ml -540 ml Exam PE: Gen Appearance: No Apparent Distress HEENT: Normocephalic Cardiovascular: Regular rate Abdomen: Soft Extremities: Dry NE: The patient was lethargic and nonverbal. Cranial nerve examination was limited by mental status. Pupils were equal and reactive to light. There was no afferent pupillary defect. Funduscopic examination was limited. Face was grossly symmetric, w/ present corneal reflexes. Tone was normal. Muscle bulk was normal. I did not see fasciculations. The patient was antigravity in all extremities. Coordination and gait testing was limited by mental status. Arm and leg reflexes were symmetric. Bui's sign was absent. Plantar responses were flexor. LAINEY BRAGG NP Aug 04, 2018 12:13
--- NOTE | 2018-08-04 15:34 | PN ---
Date/Time of Note Date/Time of Note DATE: 08/04/18 TIME: 15:34 Objective Vitals Vital Signs Date Temp Pulse Resp B/P (MAP) Pulse Ox O2 O2 Flow FiO2 Time Delivery Rate 08/04/18 98.3 83 18 133/80 99 08:06 (97) 08/03/18 Room Air 14:35 Intake and Output 08/03/18 08/03/18 08/04/18 1515:00 23:00 07:00 IntakeIntake Total 550 ml 800 ml 310 ml OutputOutput Total 700 ml 1650 ml 850 ml BalanceBalance -150 ml -850 ml -540 ml Results Result Diagram: 08/04/1852508/04/18525 Medications Medications Current Medications Acetaminophen (Tylenol Liquid) 650 mg Q6H PRN PO PAIN LEVEL 1-3 OR FEVER Last administered on 07/28/18 17:28; Admin Dose 650 MG; Start 07/27/18 at 00:00 Hydralazine HCl (Apresoline) 10 mg Q4H PRN IV ELEVATED BLOOD PRESSURE Last administered on 07/30/18at 18:04; Admin Dose 10 MG; Start 07/27/18 at 00:00 Miscellaneous Information 1 ea NOTE XX ; Start 07/27/18 at 02:00 Glucose (Glutose) 15 gm Q15M PRN PO DECREASED GLUCOSE; Start 07/27/18 at 02:00 Glucose (Glutose) 22.5 gm Q15M PRN PO DECREASED GLUCOSE; Start 07/27/18 at 02:00 Dextrose (D50w Syringe) 25 ml Q15M PRN IV DECREASED GLUCOSE; Start 07/27/18 at 02:00 Dextrose (D50w Syringe) 50 ml Q15M PRN IV DECREASED GLUCOSE; Start 07/27/18 at 02:00 Glucagon (Glucagen) 1 mg Q15M PRN IM DECREASED GLUCOSE; Start 07/27/18 at 02:00 Glucose (Glutose) 15 gm Q15M PRN BUCCAL DECREASED GLUCOSE; Start 07/27/18 at 02:00 Aspirin (Aspirin) 81 mg DAILY PO Last administered on 08/04/18at 09:04; Admin Dose 81 MG; Start 07/27/18 at 05:00 Atorvastatin Calcium (Lipitor) 80 mg HS PO Last administered on 08/03/18at 21:00; Admin Dose 80 MG; Start 07/27/18 at 05:00 Ibuprofen (Motrin) 600 mg Q6H PRN PO MILD PAIN LEVEL 1-3 Last administered on 07/29/18 09:20; Admin Dose 600 MG; Start 07/29/18 at 09:00 Chlorhexidine Gluconate (Peridex) 15 ml BID MT Last administered on 08/04/18 09:05; Admin Dose 15 ML; Start 07/29/18 at 09:00 Atenolol (Tenormin) 50 mg DAILY PO Last administered on 08/04/18 09:04; Admin Dose 50 MG; Start 07/30/18 at 09:00 Metformin HCl (Glucophage) 850 mg WITH BREAKFAST DINNE PO Last administered on 08/04/18 08:05; Admin Dose 850 MG; Start 07/29/18 at 17:55 Lisinopril (Zestril) 20 mg DAILY PO Last administered on 08/04/18 09:04; Admin Dose 20 MG; Start 07/31/18 at 09:00 Cephalexin (Keflex) 500 mg BID PO Last administered on 08/04/18 09:04; Admin Dose 500 MG; Start 07/31/18 at 12:30 Insulin Aspart (Novolog Insulin Pen) NOVOLOG *MODERATE* ALGORITHM WITH MEALS BEDTIME SC Last administered on 08/04/18 08:04; Admin Dose 2 UNIT; Start 07/31/18 at 12:00 Repaglinide (Prandin) 1 mg WITH MEALS PO Last administered on 08/04/18 11:58; Admin Dose 1 MG; Start 07/31/18 at 13:30 Dextrose/Sodium Chloride 1,000 ml @ 40 mls/hr Q24H IV Last administered on 08/04/18 15:10; Admin Dose 40 MLS/HR; Start 08/02/18 at 09:00 Ondansetron HCl (Zofran Inj) 4 mg Q6H PRN IV NAUSEA AND/OR VOMITING Last administered on 08/02/18 13:51; Admin Dose 4 MG; Start 08/02/18 at 14:00 Pantoprazole (Protonix Tab) 40 mg DAILY@06 PO Last administered on 08/04/18 05:27; Admin Dose 40 MG; Start 08/03/18 at 06:00 VTE Prophylaxis Risk score (from Nsg)>0 risk: 1 SCD applied (from Nsg): Yes Lines/Catheters IV Catheter Type: Laguerre in Place: No Assessment/Plan Hospital Course Subjective Patient is more alert, moves to command and responds to questions Objective Physical exam General: Patient is laying in bed awake and moves to command Mentation:alert and oriented somewhat Head: Normocephalic atraumatic Eyes: EOMI, pupils reactive to light Neck: Supple, nontender, midline Respiratory: Clear to auscultation bilaterally Cardiovascular: regular rate, no obvious murmurs Gastrointestinal: non-tender to palpation, bowel sounds heard. Neurological: Moves all extremities spontaneously Skin: No new skin lesions Assessment/Plan Acute R LUIS/MCA stroke - Neurology on board and appreciate recommendations. CTA head and neck results noted - ECHO negative for acute issues - PT/OT/ST on board - continue on aspirin and statin acute on chronic encephalopathy -likely sequelae from CVA from this event -repeat MRI showing stable changes, nothing acute -abg wnl -possible this will be patient's new baseline, weak, but alert and follows command Acute 3-5mm midline shift - seen on CT - Neurosurgical consultation appreciated and no need for emergent intervention at this time. Will need evaluation as high level of care for [place] since [facility] not equipped for neuroendovascular interventions. This is not emergent and discussed with family and patient need to follow up at tertiary center after dis charge. neurosurgeon compared both MRI/MRA/CT and states mild differences are negligible between the studies. 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 UTI - UA noted and Urine culture with <20K grown of strep -keflex now HLD - on Lipitor - lipid panel results noted Teeth pain - discussed need to follow with dentist after discharge HTN - on lisinopril and will resume home atenolol. adjust as needed for BP control Disposition -discussed plans with family, can not take care of patient 21/02 at home. -SNF placement for now DARNELL SHELL Aug 04, 2018 15:34
[2018-08-04 20:00] VITALS: BP 113/68; PULSE 84; RESP 18
[2018-08-04] MEDS: ATORVASTATIN 80 MG TAB PO SCH (20:41)
[2018-08-05 01:30] VITALS: BP 121/66; PULSE 77; RESP 16
[2018-08-05] MEDS: PANTOPRAZOLE (EC) 40 MG TAB PO SCH (05:50)
[2018-08-05] MEDS: REPAGLINIDE 1 MG TAB PO SCH ×2 (08:12→12:17)
[2018-08-05] MEDS: CEPHALEXIN 500 MG CAP PO SCH ×2 (08:12→20:53)
[2018-08-05] MEDS: ASPIRIN 81 MG TAB PO SCH (08:12)
[2018-08-05] MEDS: metFORMIN 850 MG TAB PO SCH ×2 (08:12→17:31)
[2018-08-05 08:13] VITALS: BP 123/82; PULSE 73; RESP 17
[2018-08-05] MEDS: LISINOPRIL 20 MG TAB PO SCH (08:14)
[2018-08-05] MEDS: INSULIN ASPART [NOVOLOG] 3 ML PEN SC SCH ×4 (08:14→20:53)
[2018-08-05] MEDS: ATENOLOL 50 MG TAB PO SCH (08:15)
[2018-08-05] MEDS: CHLORHEXIDINE GLUCONATE 15 ML UD CUP MT SCH ×2 (08:23→20:53)
--- NOTE | 2018-08-05 08:45 | CONS ---
Assessment/Plan Assessment/Plan Hospital Course A: 43 yo F with Hx of strokes who presents for evaluation of R face arm and leg weakness and dysarthria, concerning for recurrent stroke. MRI brain is most notable for large acute R LUIS/MCA territory infarct. Repeat MRI shows an evolution of the infarct but is without further acute intracranial pathology. MRA H/N most notable for extensive intra/extracranial arterial changes and new lenticulostriate collateral circulation, suggestive of moyam[place] CTA H/N is consistent with a diagnosis of M[place]. P: Cont ASA/statin for secondary stroke prevention for now BP, glucose, and other medical management per primary Reorient as necessary Limit sedating medications where possible PT/OT/ST as tolerated, with plan for acute rehab where possible Will follow clinically Result Diagram: 08/05/18 0509 08/05/18 0509 Results 24hrs Laboratory Tests Test 08/04/18 10:34 08/04/18 11:54 08/04/18 17:27 08/04/18 20:44 Lab Scanned Report REFERENCE LAB Bedside Glucose 113 124 185 Test 08/05/18 02:16 08/05/18 05:09 08/05/18 08:10 Bedside Glucose 145 145 White Blood Count 12.0 #H Red Blood Count 4.30 Hemoglobin 11.6 L Hematocrit 36.1 L Mean Corpuscular 84.0 Volume Mean Corpuscular 27.0 L Hemoglobin Mean Corpuscular 32.1 Hemoglobin Concent Red Cell Distribution 12.2 Width Platelet Count 352 Mean Platelet Volume 12.3 H Immature Granulocytes 1.300 H % Neutrophils % 53.1 Lymphocytes % 35.0 Monocytes % 6.6 Eosinophils % 3.4 Basophils % 0.6 Nucleated Red Blood 0.0 Cells % Immature Granulocytes 0.150 H # Neutrophils # 6.4 Lymphocytes # 4.2 H Monocytes # 0.8 Eosinophils # 0.4 Basophils # 0.1 Nucleated Red Blood 0.0 Cells # Sodium Level 139 Potassium Level 4.6 Chloride Level 100 Carbon Dioxide Level 24 Anion Gap 15 H Blood Urea Nitrogen 18 Creatinine 0.85 Est Glomerular > 60 Filtrat Rate mL/min Glucose Level 154 Calcium Level 9.3 Phosphorus Level 5.6 H Magnesium Level 1.6 L Consultation Date/Type/Reason Admit Date/Time Jul 26, 2018 at 23:33 Type of Consult Neurology Reason for Consultation CVA Requesting Provider: ARIANNA DIALLO Date/Time of Note DATE: 08/05/18 TIME: 08:43 24 HR Interval Summary Free Text/Dictation Continues medsurg monitoring. No acute events or changes reported overnight. Pt says she's "good." Exam Vital Signs Vitals Vital Signs Date Temp Pulse Resp B/P (MAP) Pulse Ox O2 O2 Flow FiO2 Time Delivery Rate 08/05/18 98.8 73 17 123/82 99 Room Air 08:13 (96) Intake and Output 08/04/18 08/04/18 08/05/18 1515:00 23:00 07:00 IntakeIntake Total 540 ml 760 ml 480 ml OutputOutput Total 1000 ml 300 ml 1000 ml BalanceBalance -460 ml 460 ml -520 ml Exam PE: Gen Appearance: No Apparent Distress HEENT: Normocephalic Cardiovascular: Regular rate Abdomen: Soft Extremities: Dry NE: The patient was awake and alert. Sparsely verbal. Able to follow simple commands with much prompting. Cranial nerve examination was limited by mental status. Pupils were equal and reactive to light. There was no afferent pupillary defect. Funduscopic examination was limited. Face was grossly symmetric, w/ present corneal refle xes. Tone was normal. Muscle bulk was normal. I did not see fasciculations. The patient was antigravity in all extremities. Coordination and gait testing was limited by mental status. Arm and leg reflexes were symmetric. Bui's sign was absent. Plantar responses were flexor. LAINEY BRAGG NP Aug 05, 2018 08:45 JACOB DODD Aug 06, 2018 05:38
[2018-08-05] MEDS ORDERED: MAGNESIUM SULFATE 2 GM/50 ML 50 ML IVPB ONE (12:00)
--- NOTE | 2018-08-05 12:27 | PN ---
Date/Time of Note Date/Time of Note DATE: 08/05/18 TIME: 12:26 Objective Vitals Vital Signs Date Temp Pulse Resp B/P (MAP) Pulse Ox O2 O2 Flow FiO2 Time Delivery Rate 08/05/18 98.8 73 17 123/82 99 Room Air 08:13 (96) Intake and Output 08/04/18 08/04/18 08/05/18 1515:00 23:00 07:00 IntakeIntake Total 540 ml 760 ml 480 ml OutputOutput Total 1000 ml 300 ml 1000 ml BalanceBalance -460 ml 460 ml -520 ml Results Result Diagram: 08/05/18 0509 08/05/18 0509 Medications Medications Current Medications Acetaminophen (Tylenol Liquid) 650 mg Q6H PRN PO PAIN LEVEL 1-3 OR FEVER Last administered on 07/28/18at 17:28; Admin Dose 650 MG; Start 07/27/18 at 00:00 Hydralazine HCl (Apresoline) 10 mg Q4H PRN IV ELEVATED BLOOD PRESSURE Last administered on 07/30/18at 18:04; Admin Dose 10 MG; Start 07/27/18 at 00:00 Miscellaneous Information 1 ea NOTE XX ; Start 07/27/18 at 02:00 Glucose (Glutose) 15 gm Q15M PRN PO DECREASED GLUCOSE; Start 07/27/18 at 02:00 Glucose (Glutose) 22.5 gm Q15M PRN PO DECREASED GLUCOSE; Start 07/27/18 at 02:00 Dextrose (D50w Syringe) 25 ml Q15M PRN IV DECREASED GLUCOSE; Start 07/27/18 at 02:00 Dextrose (D50w Syringe) 50 ml Q15M PRN IV DECREASED GLUCOSE; Start 07/27/18 at 02:00 Glucagon (Glucagen) 1 mg Q15M PRN IM DECREASED GLUCOSE; Start 07/27/18 at 02:00 Glucose (Glutose) 15 gm Q15M PRN BUCCAL DECREASED GLUCOSE; Start 07/27/18 at 02:00 Aspirin (Aspirin) 81 mg DAILY PO Last administered on 08/05/18at 08:12; Admin Dose 81 MG; Start 07/27/18 at 05:00 Atorvastatin Calcium (Lipitor) 80 mg HS PO Last administered on 08/04/18at 20:41; Admin Dose 80 MG; Start 07/27/18 at 05:00 Ibuprofen (Motrin) 600 mg Q6H PRN PO MILD PAIN LEVEL 1-3 Last administered on 07/29/18 09:20; Admin Dose 600 MG; Start 07/29/18 at 09:00 Chlorhexidine Gluconate (Peridex) 15 ml BID MT Last administered on 08/05/18 08:23; Admin Dose 15 ML; Start 07/29/18 at 09:00 Atenolol (Tenormin) 50 mg DAILY PO Last administered on 08/05/18 08:15; Admin Dose 50 MG; Start 07/30/18 at 09:00 Metformin HCl (Glucophage) 850 mg WITH BREAKFAST DINNE PO Last administered on 08/05/18 08:12; Admin Dose 850 MG; Start 07/29/18 at 17:55 Lisinopril (Zestril) 20 mg DAILY PO Last administered on 08/05/18 08:14; Admin Dose 20 MG; Start 07/31/18 at 09:00 Cephalexin (Keflex) 500 mg BID PO Last administered on 08/05/18 08:12; Admin Dose 500 MG; Start 07/31/18 at 12:30 Insulin Aspart (Novolog Insulin Pen) NOVOLOG *MODERATE* ALGORITHM WITH MEALS BEDTIME SC Last administered on 08/05/18 08:14; Admin Dose 2 UNIT; Start 07/31/18 at 12:00 Repaglinide (Prandin) 1 mg WITH MEALS PO Last administered on 08/05/18 12:17; Admin Dose 1 MG; Start 07/31/18 at 13:30 Dextrose/Sodium Chloride 1,000 ml @ 40 mls/hr Q24H IV Last administered on 08/04/18 15:10; Admin Dose 40 MLS/HR; Start 08/02/18 at 09:00 Ondansetron HCl (Zofran Inj) 4 mg Q6H PRN IV NAUSEA AND/OR VOMITING Last administered on 08/02/18 13:51; Admin Dose 4 MG; Start 08/02/18 at 14:00 Pantoprazole (Protonix Tab) 40 mg DAILY@06 PO Last administered on 08/05/18 05:50; Admin Dose 40 MG; Start 08/03/18 at 06:00 Magnesium Sulfate 50 ml @ 25 mls/hr ONCE ONCE IVPB ; Start 08/05/18 at 12:00; Stop 08/05/18 at 13:59 VTE Prophylaxis Risk score (from Nsg)>0 risk: 3 SCD applied (from Nsg): Yes Lines/Catheters IV Catheter Type: Laguerre in Place: No Assessment/Plan Hospital Course Subjective Patient is more alert, moves to command and responds to questions Objective Physical exam General: Patient is laying in bed awake and moves to command Mentation:alert and oriented somewhat Head: Normocephalic atraumatic Eyes: EOMI, pupils reactive to light Neck: Supple, nontender, midline Respiratory: Clear to auscultation bilaterally Cardiovascular: regular rate, no obvious murmurs Gastrointestinal: non-tender to palpation, bowel sounds heard. Neurological: Moves all extremities spontaneously Skin: No new skin lesions Assessment/Plan Acute R LUIS/MCA stroke - Neurology on board and appreciate recommendations. CTA head and neck results noted - ECHO negative for acute issues - PT/OT/ST on board - continue on aspirin and statin acute on chronic encephalopathy -likely sequelae from CVA from this event -repeat MRI showing stable changes, nothing acute -abg wnl -possible this will be patient's new baseline, weak, but alert and follows command Acute 3-5mm midline shift - seen on CT - Neurosurgical consultation appreciated and no need for emergent intervention at this time. Will need evaluation as high level of care for M[place] since [facility] not equipped for neuroendovascular interventions. This is not emergent and disc ussed with family and patient need to follow up at tertiary center after discharge. neurosurgeon compared both MRI/MRA/CT and states mild differences are negligible between the studies. Diabetes Mellitus - A1c noted - resume home metformin - prandin as tolerated - ISS and accuchecks h/o multiple CVAs in past - Neurology on board - 2/2 m[place], needs neurosurgeon at a specialized center, likely [facility], but not emergent. UTI - UA noted and Urine culture with <20K grown of strep -keflex now HLD - on Lipitor - lipid panel results noted Teeth pain - discussed need to follow with dentist after discharge HTN - on lisinopril and will resume home atenolol. adjust as needed for BP control Disposition -discussed plans with family, can not take care of patient 21/02 at home. -SNF placement for now DARNELL SHELL Aug 05, 2018 12:27
[2018-08-05 14:00] VITALS: BP 134/83; PULSE 86; RESP 17
[2018-08-05] MEDS: DEXTROSE 5%-0.45% NACL 1,000 ML IV SCH (17:33)
[2018-08-05 20:09] VITALS: BP 114/69; PULSE 75; RESP 17
[2018-08-05] MEDS: ATORVASTATIN 80 MG TAB PO SCH (20:53)
[2018-08-06 02:00] VITALS: BP 116/66; PULSE 67; RESP 18
[2018-08-06] MEDS: PANTOPRAZOLE (EC) 40 MG TAB PO SCH (06:54)
[2018-08-06 08:44] VITALS: BP 140/77; PULSE 64; RESP 17
[2018-08-06] MEDS: INSULIN ASPART [NOVOLOG] 3 ML PEN SC SCH ×4 (08:51→20:20)
[2018-08-06] MEDS: metFORMIN 850 MG TAB PO SCH ×2 (08:52→17:49)
[2018-08-06] MEDS: glipiZIDE 5 MG TAB PO SCH (08:52)
[2018-08-06] MEDS: ASPIRIN 81 MG TAB PO SCH (08:52)
[2018-08-06] MEDS: CHLORHEXIDINE GLUCONATE 15 ML UD CUP MT SCH ×2 (08:52→20:17)
[2018-08-06] MEDS: ATENOLOL 50 MG TAB PO SCH (08:53)
[2018-08-06] MEDS: LISINOPRIL 20 MG TAB PO SCH (08:53)
--- NOTE | 2018-08-06 12:21 | PN ---
Date/Time of Note Date/Time of Note DATE: 08/06/18 TIME: 12:20 Objective Vitals Vital Signs Date Temp Pulse Resp B/P (MAP) Pulse Ox O2 O2 Flow FiO2 Time Delivery Rate 08/06/18 99.1 64 17 140/77 100 Room Air 08:44 (98) Intake and Output 08/05/18 08/05/18 08/06/18 1515:00 23:00 07:00 IntakeIntake Total 150 ml 640 ml 460 ml OutputOutput Total 2000 ml 1100 ml BalanceBalance 150 ml -1360 ml -640 ml Results Result Diagram: 08/06/1851108/06/18511 Medications Medications Current Medications Acetaminophen (Tylenol Liquid) 650 mg Q6H PRN PO PAIN LEVEL 1-3 OR FEVER Last administered on 07/28/18at 17:28; Admin Dose 650 MG; Start 07/27/18 at 00:00 Hydralazine HCl (Apresoline) 10 mg Q4H PRN IV ELEVATED BLOOD PRESSURE Last administered on 07/30/18at 18:04; Admin Dose 10 MG; Start 07/27/18 at 00:00 Miscellaneous Information 1 ea NOTE XX ; Start 07/27/18 at 02:00 Glucose (Glutose) 15 gm Q15M PRN PO DECREASED GLUCOSE; Start 07/27/18 at 02:00 Glucose (Glutose) 22.5 gm Q15M PRN PO DECREASED GLUCOSE; Start 07/27/18 at 02:00 Dextrose (D50w Syringe) 25 ml Q15M PRN IV DECREASED GLUCOSE; Start 07/27/18 at 02:00 Dextrose (D50w Syringe) 50 ml Q15M PRN IV DECREASED GLUCOSE; Start 07/27/18 at 02:00 Glucagon (Glucagen) 1 mg Q15M PRN IM DECREASED GLUCOSE; Start 07/27/18 at 02:00 Glucose (Glutose) 15 gm Q15M PRN BUCCAL DECREASED GLUCOSE; Start 07/27/18 at 02:00 Aspirin (Aspirin) 81 mg DAILY PO Last administered on 08/06/18at 08:52; Admin Dose 81 MG; Start 07/27/18 at 05:00 Atorvastatin Calcium (Lipitor) 80 mg HS PO Last administered on 08/05/18at 20:53; Admin Dose 80 MG; Start 07/27/18 at 05:00 Ibuprofen (Motrin) 600 mg Q6H PRN PO MILD PAIN LEVEL 1-3 Last administered on 07/29/18at 09:20; Admin Dose 600 MG; Start 07/29/18 at 09:00 Chlorhexidine Gluconate (Peridex) 15 ml BID MT Last administered on 08/06/18 08:52; Admin Dose 15 ML; Start 07/29/18 at 09:00 Atenolol (Tenormin) 50 mg DAILY PO Last administered on 08/06/18 08:53; Admin Dose 50 MG; Start 07/30/18 at 09:00 Metformin HCl (Glucophage) 850 mg WITH BREAKFAST DINNE PO Last administered on 08/06/18 08:52; Admin Dose 850 MG; Start 07/29/18 at 17:55 Lisinopril (Zestril) 20 mg DAILY PO Last administered on 08/06/18 08:53; Admin Dose 20 MG; Start 07/31/18 at 09:00 Insulin Aspart (Novolog Insulin Pen) NOVOLOG *MODERATE* ALGORITHM WITH MEALS BEDTIME SC Last administered on 08/06/18 08:51; Admin Dose 2 UNIT; Start 07/31/18 at 12:00 Dextrose/Sodium Chloride 1,000 ml @ 40 mls/hr Q24H IV Last administered on 08/05/18 17:33; Admin Dose 40 MLS/HR; Start 08/02/18 at 09:00 Ondansetron HCl (Zofran Inj) 4 mg Q6H PRN IV NAUSEA AND/OR VOMITING Last administered on 08/02/18 13:51; Admin Dose 4 MG; Start 08/02/18 at 14:00 Pantoprazole (Protonix Tab) 40 mg DAILY@06 PO Last administered on 08/06/18 06:54; Admin Dose 40 MG; Start 08/03/18 at 06:00 Glipizide (Glucotrol) 5 mg AC BREAKFAST PO Last administered on 08/06/18 08:52 ; Admin Dose 5 MG; Start 08/06/18 at 07:30 VTE Prophylaxis Risk score (from Nsg)>0 risk: 5 SCD applied (from Nsg): Yes Lines/Catheters IV Catheter Type: Laguerre in Place: No Assessment/Plan Hospital Course Subjective Patient is more alert, moves to command and responds to questions Objective Physical exam General: Patient is laying in bed awake and moves to command Mentation:alert and oriented somewhat Head: Normocephalic atraumatic Eyes: EOMI, pupils reactive to light Neck: Supple, nontender, midline Respiratory: Clear to auscultation bilaterally Cardiovascular: regular rate, no obvious murmurs Gastrointestinal: non-tender to palpation, bowel sounds heard. Neurological: Moves all extremities spontaneously Skin: No new skin lesions Assessment/Plan Acute R LUIS/MCA stroke - Neurology on board and appreciate recommendations. CTA head and neck results noted - ECHO negative for acute issues - PT/OT/ST on board - continue on aspirin and statin acute on chronic encephalopathy -likely sequelae from CVA from this event -repeat MRI showing stable changes, nothing acute -abg wnl -possible this will be patient's new baseline, weak, but alert and follows command Acute 3-5mm midline shift - seen on CT - Neurosurgical consultation appreciated and no need for emergent intervention at this time. Will need evaluation as high level of care for M[place] since [facility] not equipped for neuroendovascular interventions. This is not emergent and discussed with family and patient need to follow up at tertiary center after discharge. neurosurgeon compared both MRI/MRA/CT and states mild differences are negligible between the studies. Diabetes Mellitus - A1c noted - resume home metformin - prandin as tolerated - ISS and accuchecks h/o multiple CVAs in past - Neurology on board - 2/2 m[place], needs neurosurgeon at a specialized center, likely [facility], but not emergent. UTI - UA noted and Urine culture with <20K grown of strep -keflex finished. HLD - on Lipitor - lipid panel results noted Teeth pain - discussed need to follow with dentist after discharge HTN - on lisinopril and will resume home atenolol. adjust as needed for BP control Disposition -discussed plans with family, can not take care of patient 21/02 at home. -SNF placement for now, patient now has full scope medi-maru according to family DARNELL SHELL Aug 06, 2018 12:21
[2018-08-06 14:00] VITALS: BP 119/69; PULSE 83; RESP 18
[2018-08-06] MEDS: DEXTROSE 5%-0.45% NACL 1,000 ML IV SCH (18:01)
[2018-08-06 19:40] VITALS: BP 129/82; PULSE 99; RESP 18
[2018-08-06] MEDS: ATORVASTATIN 80 MG TAB PO SCH (20:17)
[2018-08-07 01:52] VITALS: BP 117/70; PULSE 77; RESP 18
[2018-08-07 08:38] VITALS: BP 121/79; PULSE 75; RESP 16
[2018-08-07] MEDS: metFORMIN 850 MG TAB PO SCH ×2 (09:20→20:36)
--- NOTE | 2018-08-07 09:24 | PN ---
Date/Time of Note Date/Time of Note DATE: 08/07/18 TIME: 09:24 Assessment/Plan VTE Prophylaxis Risk score (from Nsg)>0 risk: 5 SCD applied (from Nsg): Yes Pharmacological prophylaxis: other Lines/Catheters IV Catheter Type (from Nrsg): Peripheral IV Urinary Cath still in place: No Assessment/Plan Assessment/Plan 1. Acute R LUIS/MCA stroke- stable - Neurology on board and appreciate recommendations. CTA head and neck results noted. Continue current care with therapy and antiplatelet - Discussed with family need to follow up at tertiary center after discharge and will need SNF placement in the meantime given generalized weakness - ECHO negative for acute issues - PT/OT/ST on board - continue on aspirin and statin 2. acute on chronic encephalopathy - likely sequelae from CVA from this event - repeat MRI showing stable changes, nothing acute 3. Acute 3-5mm midline shift- stable - seen on CT - Neurosurgical consultation appreciated and no need for emergent intervention at this time. Will need evaluation as high level of care for Moy[place] since [facility] not equipped for neuroendovascular interventions. This is not emergent and discussed with family and patient need to follow up at tertiary center after discharge. neurosurgeon compared both MRI/MRA/CT and states mild differences are negligible between the studies. 4. Diabetes Mellitus - A1c noted - ISS and accuchecks 5. 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 HLD - on Lipitor - lipid panel results noted 7. HTN - on lisinopril and will resume home atenolol. adjust as needed for BP control 8. Disposition - Discussed need for SNF placement with family who are agreeable given need for further physical therapy and 21/02 care - Will need to follow up with tertiary center as outpatient for evaluation and treatment of Moy[place] Result Diagram: 08/07/18 0608 08/07/18 0608 Results 24hrs Laboratory Tests Test 08/06/18 13:06 08/06/18 17:48 08/06/18 20:19 08/07/18 06:08 Bedside Glucose 197 105 155 White Blood Count 15.5 #H Red Blood Count 4.22 Hemoglobin 11.5 L Hematocrit 35.5 L Mean Corpuscular Volume 84.1 Mean Corpuscular 27.3 L Hemoglobin Mean Corpuscular 32.4 Hemoglobin Concent Red Cell Distribution 12.3 Width Platelet Count 415 Mean Platelet Volume 12.1 H Immature Granulocytes % 2.000 H Neutrophils % 58.5 Lymphocytes % 29.4 Monocytes % 7.5 Eosinophils % 2.1 Basophils % 0.5 Nucleated Red Blood 0.0 Cells % Immature Granulocytes # 0.310 H Neutrophils # 9.1 H Lymphocytes # 4.6 H Monocytes # 1.2 H Eosinophils # 0.3 Basophils # 0.1 Nucleated Red Blood 0.0 Cells # Sodium Level 140 Potassium Level 4.6 Chloride Level 101 Carbon Dioxide Level 23 Anion Gap 16 H Blood Urea Nitrogen 18 Creatinine 0.79 Est Glomerular Filtrat > 60 Rate mL/min Glucose Level 189 Calcium Level 9.3 Phosphorus Level 5.3 H Magnesium Level 1.6 L Test 08/07/18 08:20 Bedside Glucose 181 Subjective 24 Hr Interval Summary Free Text/Dictation Patient still sleepy and slow to respond. Per son, shes doing okay this am and tolerating diet. Exam/Review of Systems Vital Signs Vitals Vital Signs Date Temp Pulse Resp B/P (MAP) Pulse Ox O2 O2 Flow FiO2 Time Delivery Rate 08/07/18 98.4 75 16 121/79 99 Room Air 08:38 (93) Intake and Output 08/06/18 08/06/18 08/07/18 1414:59 22:59 06:59 IntakeIntake Total 400 ml 940 ml OutputOutput Total 400 ml BalanceBalance 400 ml 540 ml Exam General: Patient is laying in bed awake and moves to command but slow to respond. Mentation:alert and oriented somewhat Neck: Supple, nontender, midline Respiratory: Clear to auscultation bilaterally. no wheezing Cardiovascular: regular rate, no obvious murmurs Gastrointestinal: soft, non-tender to palpation, non distended, bowel sounds heard. Neurological: Moves all extremities spontaneously Skin: No new skin lesions Medications Medications Current Medications Acetaminophen (Tylenol Liquid) 650 mg Q6H PRN PO PAIN LEVEL 1-3 OR FEVER Last administered on 07/28/18at 17:28; Admin Dose 650 MG; Start 07/27/18 at 00:00 Hydralazine HCl (Apresoline) 10 mg Q4H PRN IV ELEVATED BLOOD PRESSURE Last administered on 07/30/18at 18:04; Admin Dose 10 MG; Start 07/27/18 at 00:00 Miscellaneous Information 1 ea NOTE XX ; Start 07/27/18 at 02:00 Glucose (Glutose) 15 gm Q15M PRN PO DECREASED GLUCOSE; Start 07/27/18 at 02:00 Glucose (Glutose) 22.5 gm Q15M PRN PO DECREASED GLUCOSE; Start 07/27/18 at 02:00 Dextrose (D50w Syringe) 25 ml Q15M PRN IV DECREASED GLUCOSE; Start 07/27/18 at 02:00 Dextrose (D50w Syringe) 50 ml Q15M PRN IV DECREASED GLUCOSE; Start 07/27/18 at 02:00 Glucagon (Glucagen) 1 mg Q15M PRN IM DECREASED GLUCOSE; Start 07/27/18 at 02:00 Glucose (Glutose) 15 gm Q15M PRN BUCCAL DECREASED GLUCOSE; Start 07/27/18 at 02:00 Aspirin (Aspirin) 81 mg DAILY PO Last administered on 08/06/18 08:52; Admin Dose 81 MG; Start 07/27/18 at 05:00 Atorvastatin Calcium (Lipitor) 80 mg HS PO Last administered on 08/06/18 20:17; Admin Dose 80 MG; Start 07/27/18 at 05:00 Ibuprofen (Motrin) 600 mg Q6H PRN PO MILD PAIN LEVEL 1-3 Last administered on 07/29/18at 09:20; Admin Dose 600 MG; Start 07/29/18 at 09:00 Chlorhexidine Gluconate (Peridex) 15 ml BID MT Last administered on 08/06/18 20:17; Admin Dose 15 ML; Start 07/29/18 at 09:00 Atenolol (Tenormin) 50 mg DAILY PO Last administered on 08/06/18 08:53; Admin Dose 50 MG; Start 07/30/18 at 09:00 Metformin HCl (Glucophage) 850 mg WITH BREAKFAST DINNE PO Last administered on 08/06/18 17:49; Admin Dose 850 MG; Start 07/29/18 at 17:55 Lisinopril (Zestril) 20 mg DAILY PO Last administered on 08/06/18 08:53; Admin Dose 20 MG; Start 07/31/18 at 09:00 Insulin Aspart (Novolog Insulin Pen) NOVOLOG *MODERATE* ALGORITHM WITH MEALS BEDTIME SC Last administered on 08/06/18 13:09; Admin Dose 4 UNIT; Start 07/31/18 at 12:00 Dextrose/Sodium Chloride 1,000 ml @ 40 mls/hr Q24H IV Last administered on 08/06/18at 18:01; Admin Dose 40 MLS/HR; Start 08/02/18 at 09:00 Ondansetron HCl (Zofran Inj) 4 mg Q6H PRN IV NAUSEA AND/OR VOMITING Last administered on 08/02/18at 13:51; Admin Dose 4 MG; Start 08/02/18 at 14:00 Glipizide (Glucotrol) 5 mg AC BREAKFAST PO Last administered on 08/06/18at 08:52; Admin Dose 5 MG; Start 08/06/18 at 07:30 Pantoprazole (Protonix Tab) 40 mg 0730 PO ; Start 08/07/18 at 07:30 Magnesium Oxide (Mag-Ox 400) 400 mg ONCE ONCE PO ; Start 08/07/18 at 09:30; Stop 08/07/18 at 09:31; Status UNADITYA HARRIS MD Aug 07, 2018 09:24
[2018-08-07] MEDS: INSULIN ASPART [NOVOLOG] 3 ML PEN SC SCH ×4 (09:28→21:42)
[2018-08-07] MEDS: glipiZIDE 5 MG TAB PO SCH (09:29)
[2018-08-07] MEDS: PANTOPRAZOLE (EC) 40 MG TAB PO SCH (09:30)
[2018-08-07] MEDS: ASPIRIN 81 MG TAB PO SCH (09:30)
[2018-08-07] MEDS ORDERED: MAGNESIUM OXIDE 400 MG TAB PO SCH (09:30)
[2018-08-07] MEDS: ATENOLOL 50 MG TAB PO SCH (09:30)
[2018-08-07] MEDS: LISINOPRIL 20 MG TAB PO SCH (09:31)
[2018-08-07] MEDS: DEXTROSE 5%-0.45% NACL 1,000 ML IV SCH (10:45)
[2018-08-07] MEDS: CHLORHEXIDINE GLUCONATE 15 ML UD CUP MT SCH ×2 (10:46→20:37)
--- NOTE | 2018-08-07 13:04 | CONS ---
Assessment/Plan Assessment/Plan Hospital Course A: 43 yo F with Hx of strokes who presents for evaluation of R face arm and leg weakness and dysarthria, concerning for recurrent stroke. MRI brain is most notable for large acute R LUIS/MCA territory infarct. Repeat MRI shows an evolution of the infarct but is without further acute intracranial pathology. MRA H/N most notable for extensive intra/extracranial arterial changes and new lenticulostriate collateral circulation, suggestive of moyamoya CTA H/N is consistent with a diagnosis of Moy[place]. P: Cont ASA/statin for secondary stroke prevention for now BP, glucose, and other medical management per primary Reorient as necessary Limit sedating medications where possible PT/OT/ST as tolerated, with plan for acute rehab where possible Will follow clinically Result Diagram: 08/07/18 0608 08/07/18 0608 Results 24hrs Laboratory Tests Test 08/06/18 13:06 08/06/18 17:48 08/06/18 20:19 08/07/18 06:08 Bedside Glucose 197 105 155 White Blood Count 15.5 #H Red Blood Count 4.22 Hemoglobin 11.5 L Hematocrit 35.5 L Mean Corpuscular Volume 84.1 Mean Corpuscular 27.3 L Hemoglobin Mean Corpuscular 32.4 Hemoglobin Concent Red Cell Distribution 12.3 Width Platelet Count 415 Mean Platelet Volume 12.1 H Immature Granulocytes % 2.000 H Neutrophils % 58.5 Lymphocytes % 29.4 Monocytes % 7.5 Eosinophils % 2.1 Basophils % 0.5 Nucleated Red Blood 0.0 Cells % Immature Granulocytes # 0.310 H Neutrophils # 9.1 H Lymphocytes # 4.6 H Monocytes # 1.2 H Eosinophils # 0.3 Basophils # 0.1 Nucleated Red Blood 0.0 Cells # Sodium Level 140 Potassium Level 4.6 Chloride Level 101 Carbon Dioxide Level 23 Anion Gap 16 H Blood Urea Nitrogen 18 Creatinine 0.79 Est Glomerular Filtrat > 60 Rate mL/min Glucose Level 189 Calcium Level 9.3 Phosphorus Level 5.3 H Magnesium Level 1.6 L Test 08/07/18 08:20 08/07/18 09:27 08/07/18 12:19 Bedside Glucose 181 187 156 Consultation Date/Type/Reason Admit Date/Time Jul 26, 2018 at 23:33 Type of Consult Neurology Reason for Consultation CVA Requesting Provider: ARIANNA DIALLO Date/Time of Note DATE: 08/07/18 TIME: 13:04 24 HR Interval Summary Free Text/Dictation Continue medsurg monitoring. No acute events or changes in pt condition per family report. Son states that the pt is more verbal today. Exam Vital Signs Vitals Vital Signs Date Temp Pulse Resp B/P (MAP) Pulse Ox O2 O2 Flow FiO2 Time Delivery Rate 08/07/18 98.4 75 16 121/79 99 Room Air 08:38 (93) Intake and Output 08/06/18 08/06/18 08/07/18 1515:00 23:00 07:00 IntakeIntake Total 400 ml 940 ml OutputOutput Total 400 ml BalanceBalance 400 ml 540 ml Exam PE: Gen Appearance: No Apparent Distress HEENT: Normocephalic Cardiovascular: Regular rate Abdomen: Soft Extremities: Dry NE: The patient was awake and alert. Sparsely verbal. Able to follow simple commands with prompting. Cranial nerve examination was limited by mental status. Pupils were equal and reactive to light. There was no afferent pupillary defect. Funduscopic examin ation was limited. Face was grossly symmetric, w/ present corneal reflexes. Tone was normal. Muscle bulk was normal. I did not see fasciculations. The patient was antigravity in all extremities. Coordination and gait testing was limited by mental status. Arm and leg reflexes were symmetric. Bui's sign was absent. Plantar responses were flexor. LAINEY BRAGG NP Aug 07, 2018 13:04
[2018-08-07 14:00] VITALS: BP 123/76; RESP 17
[2018-08-07 20:10] VITALS: BP 124/77; PULSE 80; RESP 18
[2018-08-07] MEDS: ATORVASTATIN 80 MG TAB PO SCH (20:37)
[2018-08-08 02:00] VITALS: BP 117/57; PULSE 59; RESP 18
[2018-08-08 08:00] VITALS: BP 173/86; PULSE 67; RESP 17
--- NOTE | 2018-08-08 08:43 | PN ---
Date/Time of Note Date/Time of Note DATE: 08/08/18 TIME: 08:43 Assessment/Plan VTE Prophylaxis Risk score (from Nsg)>0 risk: 5 SCD applied (from Nsg): Yes Pharmacological prophylaxis: other Lines/Catheters IV Catheter Type (from Nrsg): Saline Lock Urinary Cath still in place: No Assessment/Plan Assessment/Plan 1. Acute R LUIS/MCA stroke - Per family, patient woke up for breakfast and tolerated well. No new deficits appreciated. - Neurology on board and recommending continue with current treatment. Will need outpatient follow up at tertiary center. Family given information by CM - CTA head and neck results noted - ECHO negative for acute issues - PT/OT/ST on board - continue on aspirin and statin 2. Acute on chronic encephalopathy- improving - likely sequelae from CVA from this event - repeat MRI showing stable changes, nothing acute 3. Acute 3-5mm midline shift- stable - seen on CT - Neurosurgical consultation appreciated. Will need evaluation as high level of care for M[place] since [facility] not equipped for neuroendovascular interventions. This is not emergent and discussed with family and patient need to follow up at tertiary center after discharge. neurosurgeon compared both MRI/MRA/CT and states mild differences are negligible between the studies. 4. Diabetes Mellitus - A1c noted - ISS and accuchecks 5. 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 HLD - on Lipitor - lipid panel results noted 7. HTN - BP elevated this am but after given PO medications, improved 8. Disposition - on board for SNF placement - Will need to follow up as outpatient at tertiary center for further neuroendovascular workup Result Diagram: 08/08/18 0517 08/07/18 0608 Results 24hrs Laboratory Tests Test 08/07/18 09:27 08/07/18 12:19 08/07/18 18:27 08/07/18 21:39 Bedside Glucose 187 156 217 200 Test 08/08/18 02:00 08/08/18 05:17 Bedside Glucose 159 White Blood Count 14.2 H Red Blood Count 4.33 Hemoglobin 11.6 L Hematocrit 36.1 L Mean Corpuscular Volume 83.4 Mean Corpuscular 26.8 L Hemoglobin Mean Corpuscular 32.1 Hemoglobin Concent Red Cell Distribution 12.1 Width Platelet Count 425 H Mean Platelet Volume 11.8 H Immature Granulocytes % 2.500 H Neutrophils % 51.8 Lymphocytes % 35.9 Monocytes % 5.9 Eosinophils % 3.1 Basophils % 0.8 Nucleated Red Blood 0.0 Cells % Immature Granulocytes # 0.350 H Neutrophils # 7.3 Lymphocytes # 5.1 H Monocytes # 0.8 Eosinophils # 0.4 Basophils # 0.1 Nucleated Red Blood 0.0 Cells # Subjective 24 Hr Interval Summary Free Text/Dictation Patients still lethargic this am but per son was awake at 9:30 and ate breakfast already. No acute overnight events. Exam/Review of Systems Vital Signs Vitals Vital Signs Date Temp Pulse Resp B/P (MAP) Pulse Ox O2 O2 Flow FiO2 Time Delivery Rate 08/08/18 97.9 67 17 173/86 99 Room Air 08:00 (115) Intake and Output 08/07/18 08/07/18 08/08/18 1414:59 22:59 06:59 IntakeIntake Total 420 ml 200 ml 120 ml BalanceBalance 420 ml 200 ml 120 ml Exam General: Patient is laying in bed, lethargic. no acute distress Neck: Supple, nontender, midline Respiratory: Clear to auscultation bilaterally. no wheezing Cardiovascular: regular rate, no obvious murmurs Gastrointestinal: soft, non-tender to palpation, non distended, bowel sounds heard. Neurological: Moves all extremities spontaneously Skin: No new skin lesions Medications Medications Current Medications Acetaminophen (Tylenol Liquid) 650 mg Q6H PRN PO PAIN LEVEL 1-3 OR FEVER Last administered on 07/28/18at 17:28; Admin Dose 650 MG; Start 07/27/18 at 00:00 Hydralazine HCl (Apresoline) 10 mg Q4H PRN IV ELEVATED BLOOD PRESSURE Last administered on 07/30/18at 18:04; Admin Dose 10 MG; Start 07/27/18 at 00:00 Miscellaneous Information 1 ea NOTE XX ; Start 07/27/18 at 02:00 Glucose (Glutose) 15 gm Q15M PRN PO DECREASED GLUCOSE; Start 07/27/18 at 02:00 Glucose (Glutose) 22.5 gm Q15M PRN PO DECREASED GLUCOSE; Start 07/27/18 at 02:00 Dextrose (D50w Syringe) 25 ml Q15M PRN IV DECREASED GLUCOSE; Start 07/27/18 at 02:00 Dextrose (D50w Syringe) 50 ml Q15M PRN IV DECREASED GLUCOSE; Start 07/27/18 at 02:00 Glucagon (Glucagen) 1 mg Q15M PRN IM DECREASED GLUCOSE; Start 07/27/18 at 02:00 Glucose (Glutose) 15 gm Q15M PRN BUCCAL DECREASED GLUCOSE; Start 07/27/18 at 02:00 Aspirin (Aspirin) 81 mg DAILY PO Last administered on 08/07/18 09:30; Admin Dose 81 MG; Start 07/27/18 at 05:00 Atorvastatin Calcium (Lipitor) 80 mg HS PO Last administered on 08/07/18 20:37; Admin Dose 80 MG; Start 07/27/18 at 05:00 Ibuprofen (Motrin) 600 mg Q6H PRN PO MILD PAIN LEVEL 1-3 Last administered on 07/29/18 09:20; Admin Dose 600 MG; Start 07/29/18 at 09:00 Chlorhexidine Gluconate (Peridex) 15 ml BID MT Last administered on 08/07/18 20:37; Admin Dose 15 ML; Start 07/29/18 at 09:00 Atenolol (Tenormin) 50 mg DAILY PO Last administered on 08/07/18 09:30; Admin Dose 50 MG; Start 07/30/18 at 09:00 Metformin HCl (Glucophage) 850 mg WITH BREAKFAST DINNE PO Last administered on 08/07/18 20:36; Admin Dose 850 MG; Start 07/29/18 at 17:55 Lisinopril (Zestril) 20 mg DAILY PO Last administered on 08/07/18 09:31; Admin Dose 20 MG; Start 07/31/18 at 09:00 Insulin Aspart (Novolog Insulin Pen) NOVOLOG *MODERATE* ALGORITHM WITH MEALS B EDTIME SC Last administered on 08/07/18 21:42; Admin Dose 1 UNIT; Start 07/31/18 at 12:00 Ondansetron HCl (Zofran Inj) 4 mg Q6H PRN IV NAUSEA AND/OR VOMITING Last administered on 08/02/18 13:51; Admin Dose 4 MG; Start 08/02/18 at 14:00 Glipizide (Glucotrol) 5 mg AC BREAKFAST PO Last administered on 08/07/18 09:29; Admin Dose 5 MG; Start 08/06/18 at 07:30 Pantoprazole (Protonix Tab) 40 mg 0730 PO Last administered on 08/07/18at 09:30; Admin Dose 40 MG; Start 08/07/18 at 07:30 ADITYA KUMAR MD Aug 08, 2018 08:43
[2018-08-08] MEDS: INSULIN ASPART [NOVOLOG] 3 ML PEN SC SCH ×4 (09:00→20:51)
[2018-08-08] MEDS: PANTOPRAZOLE (EC) 40 MG TAB PO SCH (09:02)
[2018-08-08] MEDS: ASPIRIN 81 MG TAB PO SCH (09:02)
[2018-08-08] MEDS: glipiZIDE 5 MG TAB PO SCH (09:02)
[2018-08-08] MEDS: metFORMIN 850 MG TAB PO SCH ×2 (09:02→18:02)
[2018-08-08] MEDS: CHLORHEXIDINE GLUCONATE 15 ML UD CUP MT SCH ×2 (09:02→20:50)
[2018-08-08] MEDS: LISINOPRIL 20 MG TAB PO SCH (09:03)
[2018-08-08] MEDS: ATENOLOL 50 MG TAB PO SCH (09:03)
[2018-08-08 14:45] VITALS: BP 121/77; PULSE 74; RESP 17
--- NOTE | 2018-08-08 16:19 | CONS ---
Assessment/Plan Assessment/Plan Hospital Course A: 43 yo F with Hx of strokes who presents for evaluation of R face arm and leg weakness and dysarthria, concerning for recurrent stroke. MRI brain is most notable for large acute R LUIS/MCA territory infarct. Repeat MRI shows an evolution of the infarct but is without further acute intracranial pathology. MRA H/N most notable for extensive intra/extracranial arterial changes and new lenticulostriate collateral circulation, suggestive of m[place] CTA H/N is consistent with a diagnosis of [place]. P: Cont ASA/statin for secondary stroke prevention for now BP, glucose, and other medical management per primary Reorient as necessary Limit sedating medications where possible PT/OT/ST as tolerated, with plan for acute rehab where possible Will follow clinically Result Diagram: 08/08/18 0517 08/07/18 0608 Results 24hrs Laboratory Tests Test 08/07/18 18:27 08/07/18 21:39 08/08/18 02:00 08/08/18 05:17 Bedside Glucose 217 200 159 White Blood Count 14.2 H Red Blood Count 4.33 Hemoglobin 11.6 L Hematocrit 36.1 L Mean Corpuscular Volume 83.4 Mean Corpuscular 26.8 L Hemoglobin Mean Corpuscular 32.1 Hemoglobin Concent Red Cell Distribution 12.1 Width Platelet Count 425 H Mean Platelet Volume 11.8 H Immature Granulocytes % 2.500 H Neutrophils % 51.8 Lymphocytes % 35.9 Monocytes % 5.9 Eosinophils % 3.1 Basophils % 0.8 Nucleated Red Blood 0.0 Cells % Immature Granulocytes # 0.350 H Neutrophils # 7.3 Lymphocytes # 5.1 H Monocytes # 0.8 Eosinophils # 0.4 Basophils # 0.1 Nucleated Red Blood 0.0 Cells # Test 08/08/18 09:00 08/08/18 12:13 Bedside Glucose 219 239 H Consultation Date/Type/Reason Admit Date/Time Jul 26, 2018 at 23:33 Type of Consult Neurology Reason for Consultation CVA Requesting Provider: ARIANNA DIALLO Date/Time of Note DATE: 08/08/18 TIME: 16:19 24 HR Interval Summary Free Text/Dictation Continues medsurg monitoring. Pt reportedly more active today per family. No acute events or complaints reported. Exam Vital Signs Vitals Vital Signs Date Temp Pulse Resp B/P (MAP) Pulse Ox O2 O2 Flow FiO2 Time Delivery Rate 08/08/18 98.0 74 17 121/77 99 Room Air 14:45 (92) Intake and Output 08/07/18 08/07/18 08/08/18 1515:00 23:00 07:00 IntakeIntake Total 420 ml 200 ml 120 ml BalanceBalance 420 ml 200 ml 120 ml Exam PE: Gen Appearance: No Apparent Distress HEENT: Normocephalic Cardiovascular: Regular rate Abdomen: Soft Extremities: Dry NE: The patient was awake and alert. Sparsely verbal. Able to follow simple commands with prompting. Cranial nerve examination was limited by mental status. Pupils were equal and reactive to light. There was no afferent pupillary defect. Funduscopic examination was limited. Face was grossly symmetric, w/ present corneal reflexes. Tone was normal. Muscle bulk was normal. I did not see fasciculations. The patient was antigravity in all extremities. Coordination and gait testing was limited by mental status. Arm and leg reflexes were symmetric. Bui's sign was absent. Plantar responses were flexor. LAINEY BRAGG NP Aug 08, 2018 16:19 JACOB DODD Aug 08, 2018 17:54
[2018-08-08 20:14] VITALS: BP 136/73; PULSE 78; RESP 17
[2018-08-08] MEDS: ATORVASTATIN 80 MG TAB PO SCH (20:50)
[2018-08-09 02:00] VITALS: BP 120/80; PULSE 88; RESP 18
[2018-08-09 08:04] VITALS: BP 156/63; PULSE 55; RESP 18
[2018-08-09] MEDS: CHLORHEXIDINE GLUCONATE 15 ML UD CUP MT SCH (08:07)
[2018-08-09] MEDS: INSULIN ASPART [NOVOLOG] 3 ML PEN SC SCH ×3 (08:08→17:37)
[2018-08-09] MEDS: ASPIRIN 81 MG TAB PO SCH (08:09)
[2018-08-09] MEDS: PANTOPRAZOLE (EC) 40 MG TAB PO SCH (08:09)
[2018-08-09] MEDS: glipiZIDE 5 MG TAB PO SCH (08:09)
[2018-08-09] MEDS: metFORMIN 850 MG TAB PO SCH ×2 (08:09→17:40)
[2018-08-09] MEDS: LISINOPRIL 20 MG TAB PO SCH (08:11)
[2018-08-09] MEDS: ATENOLOL 50 MG TAB PO SCH (08:11)
--- NOTE | 2018-08-09 09:00 | PN ---
Date/Time of Note Date/Time of Note DATE: 08/09/18 TIME: 09:00 Assessment/Plan VTE Prophylaxis Risk score (from Nsg)>0 risk: 4 SCD applied (from Nsg): Yes Pharmacological prophylaxis: other Lines/Catheters IV Catheter Type (from Nrsg): Saline Lock Urinary Cath still in place: No Assessment/Plan Assessment/Plan 1. Acute R LUIS/MCA stroke- stable - More awake this am and tolerated PO intake. - Neurology on board and recommending continue with aspirin/statin. Will need outpatient follow up at tertiary center. Family given information by CM - CTA head and neck results noted - ECHO negative for acute issues - PT/OT/ST on board 2. Acute on chronic encephalopathy- stable - likely sequelae from CVA from this event - repeat MRI showing stable changes, nothing acute 3. Acute 3-5mm midline shift- stable - seen on CT - Neurosurgical consultation appreciated. Will need evaluation as high level of care for Moy[place]oya since [facility] not equipped for neuroendovascular interventions. This is not emergent and discussed with family and patient need to follow up at tertiary center after discharge. neurosurgeon compared both MRI/MRA/CT and states mild differences are negligible between the studies. 4. Diabetes Mellitus - A1c noted - ISS and accuchecks 5. 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 HLD - on Lipitor - lipid panel results noted 7. HTN - BP elevated this am but after given PO medications, improved 8. Disposition - Medically stable for discharge to SNF Result Diagram: 08/09/18 0704 08/07/18 0608 Results 24hrs Laboratory Tests Test 08/08/18 12:13 08/08/18 18:01 08/08/18 20:47 08/09/18 02:19 Bedside Glucose 239 H 111 199 145 Test 08/09/18 07:04 08/09/18 08:06 White Blood Count 14.3 H Red Blood Count 4.83 Hemoglobin 12.9 Hematocrit 41.2 Mean Corpuscular Volume 85.3 Mean Corpuscular 26.7 L Hemoglobin Mean Corpuscular 31.3 L Hemoglobin Concent Red Cell Distribution 12.2 Width Platelet Count 389 Mean Platelet Volume 11.5 H Immature Granulocytes % 2.000 H Neutrophils % 56.9 Lymphocytes % 31.9 Monocytes % 5.5 Eosinophils % 2.7 Basophils % 1.0 Nucleated Red Blood 0.0 Cells % Immature Granulocytes # 0.280 H Neutrophils # 8.1 H Lymphocytes # 4.6 H Monocytes # 0.8 Eosinophils # 0.4 Basophils # 0.1 Nucleated Red Blood 0.0 Cells # Bedside Glucose 188 Subjective 24 Hr Interval Summary Free Text/Dictation Patient more awake this am and denies any acute issues. Son at bedside and discussed plan of care. No acute overnight events. Exam/Review of Systems Vital Signs Vitals Vital Signs Date Temp Pulse Resp B/P (MAP) Pulse Ox O2 O2 Flow FiO2 Time Delivery Rate 08/09/18 96.7 55 18 156/63 98 08:04 (94) 08/09/18 Room Air 02:00 Intake and Output 08/08/18 08/08/18 08/09/18 1414:59 22:59 06:59 IntakeIntake Total 400 ml BalanceBalance 400 ml Exam General: Patient is laying in bed, lethargic. no acute distress Neck: Supple, nontender, midline Respiratory: Clear to auscultation bilaterally. no wheezing Cardiovascular: regular rate, no obvious murmurs Gastrointestinal: soft, non-tender to palpation, non distended, bowel sounds heard. Neurological: Moves all extremities spontaneously Skin: No new skin lesions Medications Medications Current Medications Acetaminophen (Tylenol Liquid) 650 mg Q6H PRN PO PAIN LEVEL 1-3 OR FEVER Last administered on 07/28/18at 17:28; Admin Dose 650 MG; Start 07/27/18 at 00:00 Hydralazine HCl (Apresoline) 10 mg Q4H PRN IV ELEVATED BLOOD PRESSURE Last administered on 07/30/18at 18:04; Admin Dose 10 MG; Start 07/27/18 at 00:00 Miscellaneous Information 1 ea NOTE XX ; Start 07/27/18 at 02:00 Glucose (Glutose) 15 gm Q15M PRN PO DECREASED GLUCOSE; Start 07/27/18 at 02:00 Glucose (Glutose) 22.5 gm Q15M PRN PO DECREASED GLUCOSE; Start 07/27/18 at 02:00 Dextrose (D50w Syringe) 25 ml Q15M PRN IV DECREASED GLUCOSE; Start 07/27/18 at 02:00 Dextrose (D50w Syringe) 50 ml Q15M PRN IV DECREASED GLUCOSE; Start 07/27/18 at 02:00 Glucagon (Glucagen) 1 mg Q15M PRN IM DECREASED GLUCOSE; Start 07/27/18 at 02:00 Glucose (Glutose) 15 gm Q15M PRN BUCCAL DECREASED GLUCOSE; Start 07/27/18 at 02:00 Aspirin (Aspirin) 81 mg DAILY PO Last administered on 08/09/18 08:09; Admin Dose 81 MG; Start 07/27/18 at 05:00 Atorvastatin Calcium (Lipitor) 80 mg HS PO Last administered on 08/08/18 20:50; Admin Dose 80 MG; Start 07/27/18 at 05:00 Ibuprofen (Motrin) 600 mg Q6H PRN PO MILD PAIN LEVEL 1-3 Last administered on 09:20; Admin Dose 600 MG; Start 07/29/18 at 09:00 Chlorhexidine Gluconate (Peridex) 15 ml BID MT Last administered on 08/09/18 08:07; Admin Dose 15 ML; Start 07/29/18 at 09:00 Atenolol (Tenormin) 50 mg DAILY PO Last administered on 08/09/18 08:11; Admin Dose 50 MG; Start 07/30/18 at 09:00 Metformin HCl (Glucophage) 850 mg WITH BREAKFAST DINNE PO Last administered on 08/09/18 08:09; Admin Dose 850 MG; Start 07/29/18 at 17:55 Lisinopril (Zestril) 20 mg DAILY PO Last administered on 08/09/18 08:11; Admin Dose 20 MG; Start 07/31/18 at 09:00 Insulin Aspart (Novolog Insulin Pen) NOVOLOG *MODERATE* ALGORITHM WITH MEALS BEDTIME SC Last administered on 08/09/18 08:08; Admin Dose 4 UNIT; Start 07/31/18 at 12:00 Ondansetron HCl (Zofran Inj) 4 mg Q6H PRN IV NAUSEA AND/OR VOMITING Last administered on 08/02/18 13:51; Admin Dose 4 MG; Start 08/02/18 at 14:00 Glipizide (Glucotrol) 5 mg AC BREAKFAST PO Last administered on 08/09/18 08:09; Admin Dose 5 MG; Start 08/06/18 at 07:30 Pantoprazole (Protonix Tab) 40 mg 0730 PO Last administered on 1/9/19at 08:09; Admin Dose 40 MG; Start 08/07/18 at 07:30 ADITYA KUMAR MD Aug 09, 2018 09:00
--- NOTE | 2018-08-09 13:38 | CONS ---
Assessment/Plan Assessment/Plan Hospital Course A: 43 yo F with Hx of strokes who presents for evaluation of R face arm and leg weakness and dysarthria, concerning for recurrent stroke. MRI brain is most notable for large acute R LUIS/MCA territory infarct. Repeat MRI shows an evolution of the infarct but is without further acute intracranial pathology. MRA H/N most notable for extensive intra/extracranial arterial changes and new lenticulostriate collateral circulation, suggestive of moyamoya CTA H/N is consistent with a diagnosis of M[place]. P: Cont ASA/statin for secondary stroke prevention for now BP, glucose, and other medical management per primary Reorient as necessary Limit sedating medications where possible PT/OT/ST as tolerated Will sign off; please call w/ ?s. Result Diagram: 08/09/18 0704 08/07/18 0608 Results 24hrs Laboratory Tests Test 08/08/18 18:01 08/08/18 20:47 08/09/18 02:19 08/09/18 07:04 Bedside Glucose 111 199 145 White Blood Count 14.3 H Red Blood Count 4.83 Hemoglobin 12.9 Hematocrit 41.2 Mean Corpuscular Volume 85.3 Mean Corpuscular 26.7 L Hemoglobin Mean Corpuscular 31.3 L Hemoglobin Concent Red Cell Distribution 12.2 Width Platelet Count 389 Mean Platelet Volume 11.5 H Immature Granulocytes % 2.000 H Neutrophils % 56.9 Lymphocytes % 31.9 Monocytes % 5.5 Eosinophils % 2.7 Basophils % 1.0 Nucleated Red Blood 0.0 Cells % Immature Granulocytes # 0.280 H Neutrophils # 8.1 H Lymphocytes # 4.6 H Monocytes # 0.8 Eosinophils # 0.4 Basophils # 0.1 Nucleated Red Blood 0.0 Cells # Test 08/09/18 08:06 08/09/18 12:15 Bedside Glucose 188 164 Consultation Date/Type/Reason Admit Date/Time Jul 26, 2018 at 23:33 Type of Consult Neurology Requesting Provider: ARIANNA DIALLO Date/Time of Note DATE: 08/09/18 TIME: 13:35 24 HR Interval Summary Free Text/Dictation Continues acute care Await SNF placement Language and motor function continue to show improvement. Exam Vital Signs Vitals Vital Signs Date Temp Pulse Resp B/P (MAP) Pulse Ox O2 O2 Flow FiO2 Time Delivery Rate 08/09/18 96.7 55 18 156/63 98 08:04 (94) 08/09/18 Room Air 02:00 Intake and Output 08/08/18 08/08/18 08/09/18 1515:00 23:00 07:00 IntakeIntake Total 400 ml BalanceBalance 400 ml Exam PE: Gen Appearance: No Apparent Distress HEENT: Normocephalic Cardiovascular: Regular rate Lungs: Clear bilaterally Abdomen: Soft Extremities: Dry NE: The patient was alert. Language was dysphasic. Fund of knowledge was difficult to assess.. Pupils were equal and reactive to light. There was no afferent pupillary defect. Visual singh were diminished b/l. Funduscopic examination was limited. Extra- ocular movements were full. Ptosis was absent. There was no nystagmus. Facial sensation was normal. Face was grossly symmetric with normal strength. Hearing was intact. Palate movements were normal. Neck strength was normal. There was normal tongue bulk and speed of movement. Tone was normal. Muscle bulk was normal. I did not see fasciculations. She was noticeably weak on the left.. Vibration sensation was normal. Temperature and pinprick sensation was normal. Rapid alternating movements were normal. There was no dysmetria. There was no intention tremor. Gait was deferred due to bedrest. Arm and leg reflexes were 2+ and symmetric. Bui's sign was absent. Plantar responses were flexor. JACOB DODD Aug 09, 2018 13:38
[2018-08-09] MEDS ORDERED: ATOR-2 PO (13:58)
[2018-08-09] MEDS ORDERED: PANT40TA4 PO (13:58)
[2018-08-09] MEDS ORDERED: ASPI-831 PO (13:58)
[2018-08-09] MEDS ORDERED: LISI-471 PO (13:58)
--- NOTE | 2018-08-09 14:02 | PDOCDIS ---
Discharge Instructions DIAGNOSIS Discharge Diagnosis 1. Acute R LUIS/MCA stroke 2. Acute on chronic encephalopathy- improved 3. Acute 3-5mm midline shift- stable 4. Diabetes Mellitus 5. 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 HLD 7. HTN CONDITION [id number] Patient Condition: [id number] Stable HOME CARE INSTRUCTIONS: [id number] Special Diet: [id number] Regular Diet FOLLOW UP/APPOINTMENTS Follow-up Plan 1. Establish care with a primary care physician as soon as possible 2. Follow up with a neuroendovascular specialist at a tertiary center for further evaluation of M[place] disease 3. Continue all medications as prescribed especially aspirin and statin. 4. If symptoms worsen, go to your closest emergency department 5 . Continue with speech therapy ADITYA KUMAR MD Aug 09, 2018 14:02
[2018-08-09 14:36] VITALS: BP 130/60; PULSE 60; RESP 18
--- NOTE | 2018-08-09 18:12 | DS ---
Date/Time of Note Date/Time of Note DATE: 08/09/18 TIME: 18:12 Discharge Summary Admission/Discharge Info Admit Date/Time Jul 26, 2018 at 23:33 Discharge Date/Time 08/09/18 at 1800 Discharge Diagnosis 1. Acute R LUIS/MCA stroke 2. Acute on chronic encephalopathy- improved 3. Acute 3-5mm midline shift- stable 4. Diabetes Mellitus 5. 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 HLD 7. HTN Patient Condition: Stable Consults Neurosurgery- Dr. Wolf Neurology- Dr. Johnson Procedures PROCEDURE: MR Brain without contrast. CLINICAL INDICATION: Subacute cerebral infarct TECHNIQUE: An MRI of the brain was performed utilizing the following sequences: Sagittal T1 weighted, axial T2 weighted, axial FLAIR, coronal GRE, and axial diffusion weighted with ADC mapping. COMPARISON: MR brain 07/27 and 07/28/2018 FINDINGS: Evolution of acute / early right frontal lobe anterior middle cerebral artery territory infarcts with effacement of the sulci and gyri of the right frontal lobe.. No evidence of hemorrhagic transformation. No new or acute ischemic infar ct. subacute ischemic grossly stable mass effect on the right lateral ventricle with a subfalcine herniation of the right frontal lobe with 5 mm [id number] midline shift. No hypointense signal abnormalities are seen on the GRE images to suggest the p resence of blood degradation products. Scattered nonspecific FLAIR/T2 signal hyperintensity foci in the subcortical and periventricular white matter which may reflect sequelae of moderate chronic microvascular ischemic disease. Stable large bilateral parietal lobe and left temporal lobe ischemic infarcts with extensive cystic encephalomalacia. The ventricles and subarachnoid spaces are mildly prominent compatible with generalized cerebral volume loss. Normal appearance of the basal cisterns. The posterior fossa contents, brainstem, seventh - eighth cranial nerve complexes, pituitary axis, orbits, paranasal sinuses, and mastoid air cells are unremarkable. No calvarial abnormality. Normal flow voids are visible in the proximal intracranial arteries and dural sinuses, indicating patency. IMPRESSION: 1. Evolution of right frontal lobe acute / early subacute ischemic infarct without hemorrhagic transformation. 2. Stable right to left midline shift of the 5 mm. 3. Moderate chronic microvascular ischemic changes and generalized cerebral volume loss. 4. Large bilateral posterior cerebral artery territory remote ischemic infarcts and encephalomalacia. RPTAT:AAJJ Physician Bg Date Time Electronically viewed and signed by Physician Bg on 07/31/2018 18:01 PROCEDURE: CTA Head and Neck. CLINICAL INDICATION: Abnormal MRA brain, reevaluation. TECHNIQUE: CT angiogram of the head and neck with iodine based intravenous contrast was performed with the use of 90 cc of Omnipaque 350 intravenous contrast material. Coronal and sagittal as well as maximal intensity projection reformations were obtained. 3-D images multiplanar MIP 3-D reconstructions were created. Stenoses are reported relative to the distal normal vessel. The images were reviewed on a PACS workstation. The CTDIvol is 23.10 mGy and the DLP is 487.04 mGycm. DICOM images are available. One or more of the following dose reduction techniques were utilized: 1.) Automated exposure control 2.) Adjustment of the mA +/- kV according to patient's size 3.) Use of iterative reconstruction technique. COMPARISON: MRA brain 07/27/2018 FINDINGS: CTA HEAD Anterior circulation: Atherosclerotic calcification is seen involving the petrous and cavernous internal carotid artery bilaterally. The internal carotid arteries are small in caliber. There is severe stenosis of the internal carotid arteries bilaterally at the level of the ICA terminus. The right A1 segment is highly attenuated and is occluded at its A2 segment. The left anterior cerebral artery is highly attenuated but there is opacification of distal branches likely a via extracranial collateralization. The M1 segment of the right MCA is opacified however there is occlusion of the anterior branches of the right MCA. The left middle cerebral artery is not well opacified but distal MCA distribution branches appear to be fairly well opacified likely via the extracranial collateralization. Multiple lenticulostriate and thalamoperforator collaterals are seen (puff of smoke appearance). There is overall paucity of opacified vessels in the right anterior cerebral and anterior middle cerebral artery distribution. Posterior circulation: Atherosclerotic calcification is seen involving both intracranial vertebral arteries, causing mild to moderate luminal narrowing bilaterally. The basilar artery is unremarkable. Both posterior cerebral arteries are small in caliber, with severely attenuated appearance distally in the area of encephalomalacia within the occipital lobes. CTA NECK Right carotid artery: Atherosclerotic calcification is seen at the carotid bulb and proximal internal carotid artery. There is severe focal stenosis of the origin of the external carotid artery. Approximately 7 mm distal to the origin, the internal carotid artery is diffusely small in caliber. Left carotid artery: Mild atherosclerotic calcification is seen at the carotid bulb causing no significant luminal narrowing. However, as 7 mm beyond the orig in, the internal carotid artery becomes diffusely small in caliber extending into the skull base. Vertebral arteries: The extracranial vertebral arteries are normal in course and caliber. No significant stenosis is seen. There is hypodensity in the anterior right MCA and right LUIS distribution consistent with recent infarct. Encephalomalacia involving both occipital lobes is again seen. The dural venous sinuses are unremarkable. Orbits: Unremarkable. Paranasal sinuses: Unremarkable. Cervical spine: Unremarkable. Lung apices: Unremarkable. IMPRESSION: Severe stenosis/occlusion at the ICA terminus bilaterally with multiple l enticulostriate and thalamoperforator collaterals present, consistent with Moyamoya disease. Occlusion of the right A2 segment. Partial opacification of the right M1 segment but with overall paucity of filling of right anterior distribution MCA branches. Decreased size of both building service worker with severe attenuation distally and nonopacied distal branches. Severe focal stenosis at the origin of the right external carotid artery. Diffuse narrowing of both extracranial internal carotid arteries approximately 7 mm beyond the origin, findings which are seen in Moyamoya disease. No significant stenosis involving the carotid bulb or proximal segment of the IACs bilaterally, per NASCET criteria. RPTAT: HEUY Physician jan Date Time Electronically viewed and signed by Physician jan on 07/28/2018 22:52 PROCEDURE: CTA Head and Neck. CLINICAL INDICATION: Abnormal MRA brain, reevaluation. TECHNIQUE: CT angiogram of the head and neck with iodine based intravenous contrast was performed with the use of 90 cc of Omnipaque [address] material. Coronal and sagittal as well as maximal intensity projection reformations were obtained. 3-D images multiplanar MIP 3-D reconstructions were created. Stenoses are reported relative to the distal normal vessel. The images were reviewed on a PACS workstation. The CTDIvol is 23.10 mGy and the DLP is 487.04 mGycm. DICOM images are available. One or more of the following dose reduction techniques were utilized: 1.) Automated exposure control 2.) Adjustment of the mA +/- kV according to patient's size 3.) Use of iterative reconstruction technique. COMPARISON: MRA brain 07/27/2018 FINDINGS: CTA HEAD Anterior circulation: Atherosclerotic calcification is seen involving the petrous and cavernous internal carotid artery bilaterally. The internal carotid arteries are small in caliber. There is severe stenosis of the internal carotid arteries bilaterally at the level of the ICA terminus. The right A1 segment is highly attenuated and is occluded at its A2 segment. The left anterior cerebral artery is highly attenuated but there is opacification of distal branches likely a via extracranial collateralization. The M1 segment of the right MCA is opacified however there is occlusion of the anterior branches of the right MCA. The left middle cerebral artery is not well opacified but distal MCA distribution branches appear to be fairly well opacified likely via the extracranial collateralization. Multiple lenticulostriate and thalamoperforator collaterals are seen (puff of smoke appearance). There is overall paucity of opacified vessels in the right anterior cerebral and anterior middle cerebral artery distribution. Posterior circulation: Atherosclerotic calcification is seen involving both intracranial vertebral arteries, causing mild to moderate luminal narrowing bilaterally. The basilar artery is unremarkable. Both posterior cerebral arteries are small in caliber, with severely attenuated appearance distally in the area of encephalomalacia within the occipital lobes. CTA NECK Right carotid artery: Atherosclerotic calcification is seen at the carotid bulb and proximal internal carotid artery. There is severe focal stenosis of the origin of the external carotid artery. Approximately 7 mm distal to the origin, the internal carotid artery is diffusely small in caliber. Left carotid artery: Mild atherosclerotic calcification is seen at the carotid bulb causing no significant luminal narrowing. However, as 7 mm beyond the origin, the internal carotid artery becomes diffusely small in caliber extending into the skull base. Vertebral arteries: The extracranial vertebral arteries are normal in course and caliber. No significant stenosis is seen. There is hypodensity in the anterior right MCA and right LUIS distribution consistent with recent infarct. Encephalomalacia involving both occipital lobes is again seen. The dural venous sinuses are unremarkable. Orbits: Unremarkable. Paranasal sinuses: Unremarkable. Cervical spine: Unremarkable. Lung apices: Unremarkable. IMPRESSION: Severe stenosis/occlusion at the ICA terminus bilaterally with multiple lenticulostriate and thalamoperforator collaterals present, consistent with Moyamoya disease. Occlusion of the right A2 segment. Partial opacification of the right M1 segment but with overall paucity of filling of right anterior distribution MCA branches. Decreased size of both building service worker with severe attenuation distally and nonopacied d istal branches. Severe focal stenosis at the origin of the right external carotid artery. Diffuse narrowing of both extracranial internal carotid arteries approximately 7 mm beyond the origin, findings which are seen in Moyamoya disease. No significant stenosis involving the carotid bulb or proximal segment of the IACs bilaterally, per NASCET criteria. RPTAT: HEUY Physician jan Date Time Electronically viewed and signed by Physician jan on 07/28/2018 22:53 AMENDMENT: 07/27/2018 7:56:12 PM Kirk Pérez M.d Critical results were discussed with Maddi Rinaldi 07/27/2018 7:50:51 PM . Patient Name: EFREN Deshpande Report Date: 27-Jul-2018 19:36.00 Patient Date: 1975 Report Status: S Accession No.: [id number] Reason for study: [place] [id number] Radiology Main Line: [phone] DIAGNOSTIC IMAGING REPORT Patient: VINICIO SCHWARTZ : 1975 Age: 43 Sex: F MR #: [id number] DOS: 07/27/18 0000 Ordering MD: ARIANNA DIALLO MD Location: ICU Room/Bed: [facility] ([place]) PROCEDURE: MR Brain with and without contrast. CLINICAL INDICATION: Multiple ischemic infarcts with new CVA. TECHNIQUE: An MRI of the brain was performed on a 3.0 amador scanner utilizing the following sequences: Sagittal T1 weighted, axial T2 weighted, axial FLAIR, coronal GRE, and axial diffusion weighted with ADC mapping. Additionally, postcontrast axial and coronal T1- weighted sequences were performed after 20 ml ProHance given intravenously without complication. COMPARISON: CT brain 07/26/2018 FINDINGS: Cortical restricted diffusion involving the right frontal lobe anteriorly within the basal ganglia and lobato involving both anterior and middle cerebral artery territory distributions compatible with acute / early subacute ischemic infarction.. No evidence of hemorrhagic transformation. Marked gyral edema and effacement of the gyri and sulci . Mass effect on the frontal horn of the right lateral ventricle with 5.2 mm of right to left frontal lobe subfalcine herniation. No abnormal extra-axial fluid collections are seen. The postcontrast images show no abnormal parenchymal, leptomeningeal, or dural enhancement. Extensive area of encephalomalacia involving the posterior medial temporal, bilateral occipital and parietal lobes compatible with remote [employer] territory ischemic infarct. Marginal parenchymal gliosis . Scattered nonspecific FLAIR/T2 signal hyperintensity foci in the subcortical and periventricular white matter which may reflect sequelae of moderate chronic microvascular ischemic disease. Minimal linear susceptibility in the right occipital region likely representing laminar necrosis or blood degradation products. The ventricles and subarachnoid spaces are prominent compatible with moderate generalized cerebral volume loss. The posterior fossa contents, brainstem, seventh - eighth cranial nerve complexes, pituitary axis, orbits, paranasal sinuses, and mastoid air cells are unremarkable. Severely hypoplastic flow voids involving the anterior circulation. IMPRESSION: 1. Large acute / early subacute ischemic infarct involving the right anterior and middle cerebral artery territory distribution with marked cortical gyral edema and effacement of the gyri and sulci. No hemorrhagic transformation. 2. Mild mass effect on the frontal horn of the right lateral ventricle with 5 mm [id number] subfalcine herniation of the right frontal . 3. Large bilateral posterior cerebral artery territory remote ischemic infarcts and encephalomalacia. Moderate chronic microvascular ischemic changes and generalized volume loss. AMENDMENT: 07/27/2018 7:54:39 PM Kirk Pérez M.d Critical results were discussed with Maddi Rinaldi 07/27/2018 7:50:51 PM . PROCEDURE: MRA . CLINICAL INDICATION: Right frontal lobe ischemic infarct.. History of prior strokes. TECHNIQUE: An MRA of the intracranial arteries was performed on the 3.0 amador scanner utilizing axial 2D time of flight. Source and MIPPED images were reviewed. 3-D [id number]. COMPARISON: MR brain 07/27/2018 FINDINGS: Aneurysms: No intracranial aneurysm or vascular malformation. Intracranial carotid arteries: Hypoplastic distal intracranial cavernous segments of the internal carotid arteries. Anterior cerebral arteries: Nonvisualization of the right A1 segment. Hypoplastic left A1 segment. Short segment visualization of the proximal A2 segments. The distal antrum A3 segments are not visualized. Middle cerebral arteries: Trace linear flow related enhancement along the course of the right M1 segment. This may reflect vascular collateral. Single M2 segment and anterior inferior temporal artery visualized. The left middle cerebral artery is not visualized with reconstitution of and distal 23 segments on the left. Prominent external carotid artery branches likely supplying collateral circulation. Lenticulostriate collaterals noted on the left . Posterior cerebral arteries: Hypoplastic and the irregular bilateral P1 and P2 segments. Nonvisualization of the bilateral calcarine and temporal branches compatible with chronic occlusion. Parietal occipital branches are patent on the left with nonvisualization of cortical branches on the right. These findings correspond to remote temporal, occipital, and parietal lobe infarcts and encephalomalacia. Anterior communicating artery: Not visualized Posterior communicating artery: Not visualized Basilar artery: Patent and normal in caliber. Superior cerebellar arteries: Patent. Anterior inferior cerebellar arteries: Not visualized Vertebral arteries: Multifocal segmental stenosis involving the intradural V4 segments bilaterally most pronounced on the right distal to the posterior inferior cerebellar artery . Posterior inferior cerebellar artery: Pain on the right. Non-visualized left. IMPRESSION: 1. Hypoplastic intracranial and the visualized extracranial internal carotid arteries with nonvisualization of anterior and middle cerebral arteries reconstituted distally via extracranial collaterals and lenticulostriate collateral suggestive of Moyamoya disease. 2. Irregularity of posterior circulation vessels likely with paucity of vessels within areas of chronic bilateral temporal, occipital and parietal lobe infarcts and encephalomalacia. 3. CT angiography is recommended for further evaluation. RPTAT:AAJJ Physician Bg Date Time Electronically viewed and signed by Physician Bg on 07/27/2018 19:56 PROCEDURE: US Carotids. CLINICAL INDICATION: Bilateral ischemic strokes. TECHNIQUE: Multiple sonographic of the carotid bifurcation region and vertebral arteries were obtained utilizing [place] scale, duplex and color-flow imaging. The images were reviewed on a PACS workstation. COMPARISON: CT head 07/26/2018 FINDINGS: Evaluation of the right carotid bifurcation region reveals no significant calcific atherosclerotic disease. Evaluation of the left carotid bifurcation region reveals no significant calci fic atherosclerotic disease. There is antegrade flow within the vertebral arteries bilaterally. RIGHT CAROTID MEASUREMENTS: Common Carotid Artery 86 (cm/sec) Internal Carotid Artery - proximal 183 (cm/sec) Internal Carotid Artery - mid 39 (cm/sec) Internal Carotid Artery - distal 36 (cm/sec) Internal Carotid/Common Carotid 3.3 LEFT CAROTID MEASUREMENTS: Common Carotid Artery 104 (cm/sec) Internal Carotid Artery - proximal 45 (cm/sec) Internal Carotid Artery - mid 50 (cm/sec) Internal Carotid Artery - distal 41 (cm/sec) Internal Carotid/Common Carotid 0.7 IMPRESSION: 1. Moderate stenosis ( 50 - 69% ) of the right internal carotid artery. 2. No evidence of a significant stenosis of the left internal carotid artery. 3. Normal antegrade flow in the vertebral arteries bilaterally. Measurement of carotid stenosis is based on peak systolic and diastolic velocity parameters that correlate to the residual internal carotid diameter with [place] Symptomatic Carotid Endarterectomy Trial (NASCET) based stenosis levels. Normal ( < 50% ) - ICA peak systolic velocity < 125 cm/sec, ICA / CCA ratio < 2.0 Moderate stenosis ( 50 - 69% ) - ICA peak systolic velocity 125 - 230 cm/sec, ICA / CCA ratio 2.0 - 4.0 Severe stenosis ( >70% ) - ICA peak systolic velocity > 230 cm/sec, ICA / CCA ratio > 4.0 PROCEDURE: MRA Neck with contrast. CLINICAL INDICATION: CVA. TECHNIQUE: An MRA of the major cervical arteries was performed on the 3.0 amador scanner utilizing axial 2D time of flight. Post contrast 3-D reconstruction images performed with 20 ml ProHance intravenous paramagnetic contrast. Source and MIPPED images were reviewed. COMPARISON: No prior studies are available for comparison. FINDINGS: Aortic arch: Patent. CCAs: The common carotid arteries mildly narrow in caliber bilaterally. No focal stenosis or can. IESHA/ECA: Marked irregularity of the margins of the internal carotid artery bulb extending from the bifurcation compatible with atherosclerotic plaque. Narrowing of the internal carotid artery over the length of the bulb without hemodynamically significant stenosis. The distal internal carotid artery is otherwise patent and normal in caliber. The intracranial internal carotid artery is markedly irregular and hypoplastic. Severe short segment stenosis at the origin of the external carotid artery with normal caliber external carotid artery beyond the stenosis. Prominent external carotid artery distal branches consistent with collateral circulation due to occluded intra cranial vasculature compatible with Moymoya syndrome. LICA/ECA: Marked irregularity of the proximal internal carotid artery bulb and bifurcation with maximal luminal stenosis of approximately 50% at its origin. The distal internal carotid artery is otherwise patent and normal in caliber. The intracranial internal carotid artery is markedly irregular and hypoplastic. Severe short segment stenosis at the origin of the external carotid artery with normal caliber external carotid artery beyond the stenosis. Prominent external carotid artery distal branches consistent with collateral circulation due to occluded intra cranial vasculature compatible with Moymoya syndrome. Vertebral arteries: The vertebral arteries are patent and normal in caliber bilaterally. Short segment stenosis of the right intradural V4 segment just beyond the origin of the posterior inferior cerebellar artery. There is no evidence of vascular stenosis or occlusion. IMPRESSION: 1. The carotid arteries are somewhat hypoplastic bilaterally. 2. Irregularity and narrowing of the proximal internal carotid artery bulb bilaterally resulting in 50% luminal stenosis by NASCET criteria on the left. No significant focal narrowing on the right. 3. High-grade short segment stenosis of the proximal external carotid arteries with prominent external carotid artery distal branches consistent with collateral circulation due to occluded intra cranial vasculature compatible with Moymoya syndrome. RPTAT:AAJJ Physician Bg Date Time Electronically viewed and signed by Physician Bg on 07/27/2018 19:49 PROCEDURE: CT Brain without contrast. CLINICAL INDICATION: Stroke TECHNIQUE: A CT of the brain was performed on a multidetector CT scanner utilizing axial imaging from the skull base through the vertex without IV contrast. Multiplanar reformatted images were made. Images were reviewed on a PACS workstation. The CTDIvol is 40 mGy and the DLP is 634 mGycm. DICOM images are available. One or more of the following dose reduction techniques were utilized: 1.) Automated exposure control 2.) Adjustment of the mA +/- kV according to patient's size 3.) Use of iterative reconstruction technique. COMPARISON: None FINDINGS: Noted is mild to moderate diffuse cerebral volume loss with sulcal and ventricular dilatation. No discrete extra-axial fluid collection or masses seen. Ventricles are in the midline. There is mass effect and deformity of the frontal horn of the right lateral ventricle secondary to mass effect from edema originating from an acute to subacute non-hemorrhagic infarct in the distribution of the right anterior cerebral artery. There is effacement of the overlying sulci with approximate 3 mm right to left midline shift at the level of the third ventricle. There is no evidence of herniation. Noted are chronic infarcts of the right and left occipital lobe and posterior right parietal lobe with encephalomalacia. There is a chronic infarct extending from the left basal ganglia into the frontal lobato radiata. Small chronic ischemic changes are seen in the right basal ganglia. There is periventricular white matter disease in both cerebral hemispheres. No intracranial hemorrhage is visualized. There is normal aeration of the visualized paranasal sinuses per IMPRESSION: Acute to subacute non-hemorrhagic infarct distribution right anterior cerebral artery with mass effect and deformity frontal horn right lateral ventricle and 3 mm right to left midline shift. No evidence of herniation. Chronic infarcts right and left occipital lobe and posterior right parietal lobe with encephalomalacia. Chronic ischemic changes left basal ganglia and left frontal periventricular white matter. Bilateral white matter disease compatible with chronic small vessel ischemia. No intracranial hemorrhage. .Dm Parrish MD, MD Date Time Electronically viewed and signed by .Dm Parrish MD, MD on 07/26/2018 22:12 PROCEDURE: Portable chest x-ray. CLINICAL INDICATION: 43 years of age, female. Possible stroke TECHNIQUE: Portable AP view of the chest. COMPARISON: None available. FINDINGS: Medical devices: None. Mediastinum: Cardiomediastinal contours are normal. Lungs: Lungs are clear. Pleura: Negative for pleural effusion or pneumothorax. Bones: No acute bony abnormality. Additional comment: None. IMPRESSION: Negative for evidence of an acute chest process. RPTAT: HCTS Physician [place] Date Time Electronically viewed and signed by Bria Aguilar, Physician on 07/26/2018 2 2:05 Hx of Present Illness Chief complaint: left sided facial droop, weakness times 3 days This is a 43-year-old female with a past medical history of CVA and diabetes who comes in today with symptoms of left facial droop and weakness. She is accompanied by her daughter. Most of the history was obtained from the daughter as the patient was not able to provide a complete history given her clinical condition. According to the daughter the patient was noted to to have decreased activity over the last 3 days and was mostly just sitting around at home. The daughter also noted that she had a right-sided facial droop. When the patient was asked further when her symptoms started she did report that one week ago she started experiencing a headache. Patient has a history of 4 strokes in the past with some of them resulting in limb weakness which eventually recovered after rehab. At the current time the mother is able to perform her daily activities such as cooking. She is able to walk on her own. The daughter does state that she has some issues with her vision mainly color colorblindness which the nahun larose thinks that could be secondary to her previous strokes but she is unsure of this. The family and patient recently emigrated to [facility] within the last few months. Allergies: NKDA Hospital Course Patient was admitted to ICU for close monitoring given intracranial hemorrhage with midline shift. She was evaluated by Neurosurgery as well as Neurology. 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 Per Neurosurgery recommendations, patient would need neuroendovascular intervention at a tertiary center but was not emergent that patient be transferred during this hospitalization. Neurology recommended continue on aspirin, statin, and plavix. Patients mentation waxed and waned and she was dependent on assistance for walking. Physical therapy recommended SNF placement. CM provided patient with resources to seek care at a tertiary center for Moyamoya disease after discharged. Patient was found to have lice during hospital stay but received treatment that was effective at eradicating the lice. Given patients recent immigration to [place], her insurance was pending and was able to be approved for full scope medi-maru. Arrangements were made for SNF placement and on day of discharge patients vitals and physical exam were stable. Patient was discharged in stable condition. Home Meds Active Scripts Pantoprazole* (Pantoprazole*) 40 Mg Tablet., 40 MG PO 0730 for 30 Days, #30 TAB Prov:ADITYA KUMAR MD 08/09/18 Aspirin (Aspirin) 81 Mg Chew, 81 MG PO DAILY for 30 Days, #30 TAB Prov:ADITYA KUMAR MD 08/09/18 Lisinopril* (Lisinopril*) 20 Mg Tablet, 20 MG PO DAILY for 30 Days, #30 TAB Prov:ADITYA KUMAR MD 08/09/18 Atorvastatin* (Atorvastatin*) 80 Mg Tablet, 80 MG PO HS for 30 Days, #30 TAB Prov:ADITYA KUMAR MD 08/09/18 Reported Medications Multivits-Min/Iron/FA/Lutein (Centrum Silver Women Tablet) 1 Each Tablet, 1 EACH PO DAILY, TAB 07/26/18 Atenolol* (Atenolol*) 50 Mg Tablet, 50 MG PO DAILY, #30 TAB 07/26/18 Metformin Hcl* (Metformin Hcl*) 850 Mg Tablet, 850 MG PO WITH BREAKFAST DINNE, #30 TAB 07/26/18 Discontinued Reported Medications [Gliclazide ] No Conflict Check, 40 MG PO BID 07/26/18 Fenofibrate* (Fenofibrate*) 200 Mg Cap, 200 MG PO DAILY, CAP 07/26/18 [Clinidipine ] No Conflict Check, 10 MG DAILY 07/26/18 Omeprazole* (Omeprazole*) 20 Mg Capsule., 20 MG PO DAILY, #30 CAP 07/26/18 Follow-up Plan 1. Establish care with a primary care physician as soon as possible 2. Follow up with a neuroendovascular specialist at a tertiary center for further evaluation of Moyamoya disease 3. Continue all medications as prescribed especially aspirin and statin. 4. If symptoms worsen, go to your closest emergency department 5 . Continue with speech therapy Primary Care Provider Care Physician No Primary Time spent on discharge: > 30 minutes Pending Labs Laboratory Tests Test 08/08/18 20:47 08/09/18 02:19 08/09/18 07:04 08/09/18 08:06 Bedside 199 145 188 Glucose mg/dL (70-220) mg/dL (70-220) mg/dL (70-220) White Blood 14.3 Count 10^3/ul (4.8-1 0.8) Red Blood 4.83 Count 10^6/ul (4.20- 5.40) Hemoglobin 12.9 g/dl (12.0-16. 0) Hematocrit 41.2 % (37.0-47.0) Mean 85.3 Corpuscular fl (82.0-101.0 Volume ) Mean 26.7 Corpuscular pg (29.0-33.0) Hemoglobin Mean 31.3 Corpuscular g/dl (32.0-37. Hemoglobin Conc 0) ent Red Cell 12.2 Distribution % (11.5-14.5) Width Platelet Count 389 10^3/UL (140-4 15) Mean Platelet 11.5 Volume fl (7.4-10.4) Immature 2.000 Granulocytes % % (0.001-0.429 ) Neutrophils % 56.9 % (39.0-77.0) Lymphocytes % 31.9 % (15.0-51.0) Monocytes % 5.5 % (0.0-11.0) Eosinophils % 2.7 % (0.0-7.0) Basophils % 1.0 % (0.0-2.0) Nucleated Red 0.0 Blood Cells % /100WBC (0.0-0 .0) Immature 0.280 Granulocytes # 10^3/ul (0.0-0 .031) Neutrophils # 8.1 10^3/ul (1.6-7 .5) Lymphocytes # 4.6 10^3/ul (0.8-2 .9) Monocytes # 0.8 10^3/ul (0.3-0 .9) Eosinophils # 0.4 10^3/ul (0.0-0 .5) Basophils # 0.1 10^3/ul (0.0-0 .1) Nucleated Red 0.0 Blood Cells # 10^3/ul (0.0-0 .0) Test 08/09/18 12:15 08/09/18 17:28 Bedside 164 94 Glucose mg/dL (70-220) mg/dL (70-220) ADITYA KUMAR MD Aug 09, 2018 18:12
== END 2018-08-09 18:59 | DRG 64 ==
LOC: E/R 16:56 → ICU 23:33 → TEL 07-28 14:27 → PP2 07-30 16:42
PROVIDERS: ADMIT Family Medicine; ATTEND Internal Medicine
DX: I63.9 Cerebral infarction, unspecified (principal); G93.6 Cerebral edema; I67.5 Moyamoya disease; G81.91 Hemiplegia, unspecified affecting right dominant side; G93.49 Other encephalopathy; N39.0 Urinary tract infection, site not specified; I10 Essential (primary) hypertension; E11.9 Type 2 diabetes mellitus without complications; E78.5 Hyperlipidemia, unspecified; I65.23 Occlusion and stenosis of bilateral carotid arteries; R47.1 Dysarthria and anarthria; K08.89 Other specified disorders of teeth and supporting structures
CPT/HCPCS: 36415; 36600; 70450; 70496; 70498; 70544; 70548; 70551; 70553; 71045; 80048; 80053; 80061; 80069; 80307; 81001; 81240; 82803; 82962; 83036; 83090; 83735; 83890; 84100; 84443; 84484; 85025; 85240; 85300; 85302; 85305; 85378; 85610; 85651; 85730; 86146; 86147; 86592; 87040; 87081; 87086; 92526; 92610; 93005; 93306; 93880; 97110; 97116; 97161; 97167; 97530; 97535; C9113; J0360; J0696; J1815; J2405; J3475; J7042; Q9967